=== PATIENT | male | born 1945 | race Caucasian/White ===

== ENCOUNTER 2019-10-30 07:51 | Outpatient (CLI) | payer MEDICARE, MEDICAID, SELFPAY ==
--- NOTE | 2019-10-30 | US_ITS ---
WS: [id number] Complete ABDOMINAL ULTRASOUND HISTORY: UNSPECIFIED ABD PAIN, nausea. COMPARISON: None available. Liver: 22.0 cm in length. Enlarged liver with coarsened echotexture and hepatic steatosis. No mass or bile duct dilatation. Gallbladder: Normally distended with no gallstones, wall thickening or pericholecystic fluid. Gallbladder wall thickness: 0.2 cm. Pancreas: Obscured by bowel gas. CBD: 0.4 cm. Right kidney: 11.4 cm x 4.8 cm x 5.9 cm. No mass, cortical thickening or hydronephrosis. Left kidney: 12.7 cm x 5.0 cm x 4.8 cm. No mass, cortical thickening or hydronephrosis. Spleen: Normal size and echogenicity. Abdominal aorta is obscured by bowel gas. IVC is not well visualized. No ascites. US/US abdomen complete* [id number] IMPRESSION: 1. Moderate to severe hepatic steatosis and hepatomegaly. 2. Normal gallbladder. 3. Pancreas and aorta are not visualized.
== END 2019-10-30 07:52 | disposition home or self-care (01) ==
PROVIDERS: Family Provider Nurse Practitioner Family; PCP Nurse Practitioner Family; Visit Provider Nurse Practitioner Family
DX: R10.9 Unspecified abdominal pain (principal); K76.0 Fatty (change of) liver, not elsewhere classified; R16.0 Hepatomegaly, not elsewhere classified
CPT/HCPCS: 76700

== ENCOUNTER 2019-12-15 07:34 | Outpatient (CLI) | payer MEDICARE, MEDICAID, SELFPAY ==
--- NOTE | 2019-12-15 07:46 | IR_ITS ---
WS: [id number] THORACIC AND LUMBAR MYELOGRAMs HISTORY: SPINAL STENOSIS, LUMBAR REGION W/NEUROGENIC CLAUDICATION COMPARISON: None available. FLUOROSCOPY TIME: 1.2 minutes. Procedure, risks and complications were explained to the patient. Risks including bleeding, infection , headaches, allergic reaction and seizures. Consent has been obtained. With the patient in prone position the skin over the lumbar region is cleansed with ChloraPrep and an esthetized with lidocaine. 22-gauge spinal needle is inserted into the thecal sac at the appropriate level determined by fluoroscopy. Omnipaque 300; 12 ml is injected slowly under fluoroscopy with no co mplications. Needle bevel is perpendicular to the longitudinal fibers of the dura. Stylet is reinsert ed prior to removal of the needle. Patient tolerated the procedure well. Patient will proceed to CT f or further evaluation. Quality of this examination is limited by body habitus. Injection of the thecal contrast at the L3 level. Thecal sac is poorly visualized due to body habitus . There is significant degenerative disc disease and osteophytosis throughout the thoracic and lumbar spines. No acute fractures are identified. Extensive multilevel osteophytosis. IR/IR myelogram spine thorac/lumb IMPRESSION: 1. Quality of examination is limited by body habitus. 2. Severe multilevel spondylitic changes throughout the thoracic and lumbar sp wallace. No fractures. 3. There is mild encroachment upon the ventral thecal sac at the thoracolumbar region which will be better identified on the CTs to follow.
--- NOTE | 2019-12-15 07:46 | CT_ITS ---
WS: [id number] CT THORACIC MYELOGRAM HISTORY: SPINAL STENOSIS, LUMBAR REGION W/NEUROGENIC CLAUDICATION TECHNIQUE: Contiguous 2.5 mm axial images are reviewed to thoracic spine. Images are reformatted in s agittal and coronal planes. All CT scans at [facility] use at least one of these dose opt imization techniques: automated exposure control; mA and/or kV adjustment per patient size (includes targeted exams where dose is matched to clinical indication); or iterative reconstruction. DLP: 3797.25 mGy.cm COMPARISON: None available. Mild S-shaped curvature the thoracic spine. There is slight increase in the thoracic kyphosis with ad vanced degenerative changes throughout the thoracic spine. There is very slight anterior wedging of T 6, T7 and T8. No fracture identified. There are large osteophytes predominantly along the RIGHT later al vertebral bodies. Good distention of the thecal sac with contrast. T1-2: No stenosis. T2-3: Shallow central disc protrusion without stenosis. T3-4: Shallow RIGHT paracentral disc protrusion without stenosis. T4-5: Shallow LEFT paracentral disc protrusion without stenosis. T5-6: Small central disc protrusion with near complete effacement of CSF. No stenosis. T6-7: Normal. T7-8: Vertebral body osteophyte with encroachment upon the RIGHT lateral thecal sac and near complet e effacement of CSF. Mild LEFT foraminal stenosis. T8-9: Mild RIGHT foraminal stenosis due to osteophyte. T9-10: Mild facet arthritis. Very mild narrowing of the foramen. T10-11: Facet joint arthritis. Osteophytes encroach into the RIGHT lateral thecal sac from the facet joint. Moderate RIGHT foraminal stenosis due to disc and osteophyte. T11-12: Osteophytic ridging of the vertebral bodies. Most significant at the RIGHT foramen. Moderate bilateral foraminal stenosis, RIGHT greater than LEFT. CT/CT thoracic spine w con [id number] IMPRESSION: 1. Multilevel small disc protrusions and facet arthritis as above. 2. RIGHT facet osteophyte at T10-11 encroaches into the thecal sac without con tact on the cord. 3. Moderate stenosis RIGHT T10-11 foramen due to disc osteophyte. 4. No severe foraminal or central stenosis. 5. Moderate bilateral foraminal stenosis at T11-12, RIGHT greater than LEFT.
--- NOTE | 2019-12-15 07:46 | CT_ITS ---
WS: [id number] CT MYELOGRAM LUMBAR SPINE HISTORY: SPINAL STENOSIS, LUMBAR REGION W/NEUROGENIC CLAUDICATION TECHNIQUE: Contiguous 2.5 mm axial imaging performed from T12 through the mid sacral level. Bone and soft tissue windows reviewed. Sagittal and coronal reformats are submitted and reviewed. DLP: 2319.[address] scans at [facility] use at least one of these dose optimization techniques: automat ed exposure control; mA and/or kV adjustment per patient size (includes targeted exams where dose is matched to clinical indication); or iterative reconstruction. COMPARISON: None available. Good injection of the thecal sac with contrast. There is limited contrast within the thecal sac due t o the significant stenosis throughout the lumbar spine. There is also increased epidural fat. Severe degenerative disc disease at all levels. Increasing sclerosis along the endplates most significant at L1-2 and L4-5. No fractures. T12-L1: Diffuse annular disc bulging and osteophytic ridging with facet arthritis. Mild central and b ilateral foraminal stenosis. L1-L2: Diffuse osteophytic ridging and annular disc bulging. Increased epidural fat surrounds the the cary sac. There is moderate central and bilateral foraminal stenosis. Greater foraminal stenosis on th e LEFT. L2-L3: Diffuse marked annular disc bulging and osteophytic ridging. Ligamentum flavum hypertrophy and facet arthritis. Moderate central stenosis with mild bilateral foraminal stenosis. L3-L4: Diffuse annular disc bulging and osteophytic ridging. Moderate central stenosis with mild bila teral foraminal stenosis. L4-L5: Marked osteophytic ridging and annular disc bulging with severe facet joint arthritis. Mild wi dening of the facet joints. Increased epidural fat. Severe central stenosis with subarticular recess and severe bilateral foraminal stenosis. L5-S1: Severe annular disc bulging and osteophytic ridging. Increased soft tissue in the RIGHT forame n. Marked increase in epidural fat causing narrowing of the thecal sac. Severe central, RIGHT subarti cular recess and foraminal stenosis. Highly suspicious for RIGHT foraminal disc protrusion. Moderate foraminal stenosis on the LEFT. Mild widening of the facet joints bilaterally. Paravertebral soft tissues are negative for acute process. CT/CT lumbar spine w con [id number] IMPRESSION: 1. Uncomplicated lumbar myelogram. 2. Severe multilevel degenerative osteoarthritic changes with stenoses through out the lumbar spine. 3. Diffuse increase in epidural fat contributing to the central stenoses. 4. Severe central stenosis with subarticular and bilateral foraminal stenosis at L4-5 is multifactorial. 5. Severe central, RIGHT subarticular and RIGHT foraminal stenosis at L5-S1. H ighly suspect there is probably a large disc protrusion in the RIGHT foramen. Q uality of this examination is limited by body habitus. 6. Moderate foraminal stenosis on the LEFT at L5-S1. 7. Moderate central and bilateral mild to moderate foraminal stenosis at L1-2, L2-3 and L3-4.
[2019-12-15] MEDS: iohexol 300 mg/mL 50 mL Btl INTRATHECA (09:48)
== END 2019-12-15 07:35 | disposition home or self-care (01) ==
LOC: RAD 07:38
PROVIDERS: Family Provider Nurse Practitioner Family; PCP Nurse Practitioner Family; Visit Provider Anesthesiology Pain Medicine
DX: M48.062 Spinal stenosis, lumbar region with neurogenic claudication (principal); M47.895 Other spondylosis, thoracolumbar region; M51.36 Other intervertebral disc degeneration, lumbar region; M48.061 Spinal stenosis, lumbar region without neurogenic claudication; M51.34 Other intervertebral disc degeneration, thoracic region; M48.04 Spinal stenosis, thoracic region; M25.78 Osteophyte, vertebrae
CPT/HCPCS: 62305; 72120; 72129; 72132

== ENCOUNTER → 2020-04-15 16:13 | Outpatient (BNVA) | payer MEDICARE, MEDICAID, SELFPAY | PROVIDERS: Family Provider Nurse Practitioner Family; PCP Nurse Practitioner Family; Visit Provider Internal Medicine Cardiovascular Disease | DX: R06.02 Shortness of breath (principal); I50.33 Acute on chronic diastolic (congestive) heart failure; R07.89 Other chest pain; I11.0 Hypertensive heart disease with heart failure; F32.9 Major depressive disorder, single episode, unspecified; G47.33 Obstructive sleep apnea (adult) (pediatric); E11.65 Type 2 diabetes mellitus with hyperglycemia | CPT/HCPCS: 80048; 83880 ==

== ENCOUNTER 2020-05-08 12:30 | Outpatient (CLI) | payer MEDICARE, MEDICAID, SELFPAY ==
--- NOTE | 2020-05-08 12:22 | PC.NURSE ---
STRESS TEST NOTE PATIENT HER FOR LEXISCAN SESTAMIBI STRESS TEST AND AN ECHOCARDIOGRAM. UPON QUESTIONING HIM ABOUT HIS CAFFIENE AND FOOD INTAKE HE STATED THAT HE HAD 2 CUPS OF COFFEE WITH BREAKFAST AROUND 0700. HE STATES THAT HE WAS GIVEN A MAP OF THE [facility]OSP[facility] IN [facility] WITH NO STRESS TEST INSTRUCTIONS. THE ECHOCARDIOGRAM WAS COMPLETED TODAY. THE LEXISCAN SESTAMIBI STRESS TEST WAS RESCHEDULED TO May, WITH A CHECK IN TIME OF 0900. 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 THEY ALL VERBALIZED THEIR UNDERSTANDING.
--- NOTE | 2020-05-08 13:30 | USCV_ITS ---
Enzo Trujillo Age: 74 Gender: M : 1945 Exam Date: 05/08/2020 11:20 Ordering Phys: Lina Hong MD ([email or web address]) Technologist: Luann Potter Exam Location: [facility] Indication: SOB CHF BP: 112 / 60 HR: 80 Rhythm: Sinus Technical Quality: Very technically difficult study MEASUREMENTS (Male / Female) Normal Values 2D ECHO LV Diastolic Diameter PLAX 5.5 cm 4.2 - 5.9 / 3.9 - 5.3 cm LV Systolic Diameter PLAX 3.3 cm LV Chamber Size 3.4 cm IVS Diastolic Thickness 1.5 cm 0.6 - 1.0 / 0.6 - 0.9 cm IVS Systolic Thickness 1.8 cm LVPW Diastolic Thickness 1.7 cm 0.6 - 1.0 / 0.6 - 0.9 cm LVPW Systolic Thickness 2.1 cm RV Chamber Size 3.2 cm LVOT Diameter 2.0 cm LV Ejection Fraction 2D Teich 70.6 % LA Diameter 2.9 cm LA Width 3.5 cm LA Height 3.7 cm RA Width 2.9 cm RA Height 3.8 cm Aorta at Sinotubular Diameter 3.9 cm M-MODE LV Diastolic Diameter MM 5.1 cm 4.2 - 5.9 / 3.9 - 5.3 cm LV Systolic Diameter MM 3.0 cm LV Ejection Fraction MM Teich 72.4 % IVS Diastolic Thickness MM 1.4 cm 0.6 - 1.0 / 0.6 - 0.9 cm IVS Systolic Thickness MM 2.1 cm LVPW Diastolic Thickness MM 1.6 cm 0.6 - 1.0 / 0.6 - 0.9 cm LVPW Systolic Thickness MM 1.7 cm RV Diastolic Diameter MM 1.6 cm Aortic Annulus Diameter 4.2 cm LA Ao Ratio MM 0.7 MV E Point Septal Separation 0.9 cm DOPPLER AV Peak Velocity 136.0 cm/s LVOT Peak Velocity 105.0 cm/s AV Area Cont Eq vti 2.8 cm squared AV Area Cont Eq pk 2.5 cm squared MV Area PHT 5.6 cm squared Mitral E to A Ratio 0.8 MV E' Velocity 41.5 cm/s Mitral E to MV E' Ratio 9.3 Mitral E to LV E' Lateral Ratio 12.7 Mitral E to LV E' Septal Ratio 7.4 TR Peak Velocity 138.4 cm/s TR Peak Gradient 7.7 mmHg TR Mean Velocity 118.6 cm/s TR Mean Gradient 5.5 mmHg TR Velocity Time Integral 27.7 cm TV Peak E Velocity 78.0 cm/s Right Atrial Pressure 5.0 mmHg Pulmonary Artery Systolic Pressu 12.7 mmHg PV Peak Velocity 76.0 cm/s RV Acceleration Time 0.2 s RV Ejection Time 0.4 s RV AcT/ET 0.5 FINDINGS Left Ventricle Normal LV size ejection fraction of 65%. No gross wall motion normalities. Segmental wall motion analysis difficult because of the poor ultrasonic window.Grade I/IV diastolic dysfunction (abnormal relaxation filling pattern), normal to mildly elevated filling pressures. Right Ventricle Normal right ventricular size and systolic function. Right Atrium Possibly of normal size. Left Atrium Normal left atrial size. Mitral Valve Some mitral annular calcification. Aortic Valve No gross abnormalities noted. Could not visualize the leaflets Tricuspid Valve Tricuspid valve not well visualized. Thickened tricuspid annulus Pulmonic Valve Pulmonic valve not well visualized. Pericardium No pericardial effusion. Aorta Normal aortic annulus size. CONCLUSIONS Normal LV size ejection fraction of 65%. No gross wall motion normalities. Segmental wall motion analysis difficult because of the poor ultrasonic window. Grade I/IV diastolic dysfunction (abnormal relaxation filling pattern), normal to mildly elevated filling pressures. Some mitral annular calcification. Thickened tricuspid annulus There is no pericardial effusion. Technically difficult study because of the poor ultrasonic window. Dr Lina Hong MD [facility] (Electronically Signed) Final Date: 08 May 2020 14:44 S
== END 2020-05-08 12:31 | disposition home or self-care (01) ==
LOC: US 15:16
PROVIDERS: PCP Nurse Practitioner Family; Visit Provider Internal Medicine Cardiovascular Disease
DX: R07.9 Chest pain, unspecified (principal); R06.02 Shortness of breath; E11.65 Type 2 diabetes mellitus with hyperglycemia; I50.9 Heart failure, unspecified; I08.1 Rheumatic disorders of both mitral and tricuspid valves
CPT/HCPCS: 93306

== ENCOUNTER 2020-05-26 20:13 | Inpatient (IN) | payer MEDICARE, MEDICAID, SELFPAY ==
[2020-05-26 20:18] VITALS: BP 152/71; PULSE 94; RESP 28; TEMP 36.8; O2SAT 94; BMI 55.3
--- NOTE | 2020-05-26 20:32 | CTR_ITS ---
PROCEDURE INFORMATION: Exam: CT Lumbar Spine Without Contrast Exam date and time: 05/26/2020 8:35 PM Age: 74 years old Clinical indication: Low back pain; Patient HX: C/O worsening chronic lbp w weakness; Additional info: Weakness, back pain TECHNIQUE: Imaging protocol: Computed tomography images of the lumbar spine without contrast. Radiation optimization: All CT scans at this facility use at least one of these dose optimization techniques: automated exposure control; mA and/or kV adjustment per patient size (includes targeted exams where dose is matched to clinical indication); or iterative reconstruction. COMPARISON: CT lumbar spine w con [id number] 12/15/2019 9:22 AM RADIATION DOSE METRICS: Total DLP (mGy-cm): 2463.86 FINDINGS: Vertebrae: There is slight left convexity of the lumbar spine. No anterior wedging deformity is seen. No acute lucent fracture lines are visualized. No destructive osseous lesions are seen. There is diffuse lumbar spondylosis. Facet arthropathy is most prominent at the L4-L5 and L5-S1 levels. Discs/Spinal canal/Neural foramina: There is moderate to severe central stenosis at L1-L2 due to a diffuse spondylitic ridge and facet hypertrophy. Central canal stenosis is moderate at L2-L3, mild at L3-L4 and L4-L5. There is neural foraminal stenosis at each lumbar level. CT/CT lumbar spine wo con* [id number] IMPRESSION: 1. No acute lumbar spinal injury demonstrated by CT. 2. Degenerative changes of the lumbar spine, as above. Radiation Dose CTDIVOL = (mGy): DLP = 2463.86 (mGy-cm)
--- NOTE | 2020-05-26 20:32 | XRR_ITS ---
PROCEDURE INFORMATION: Exam: XR Chest, 1 View Exam date and time: 05/26/2020 9:00 PM Age: 74 years old Clinical indication: Other: General weakness TECHNIQUE: Imaging protocol: XR of the chest Views: 1 view. COMPARISON: CR IR myelogram spine thorac/lumb 12/15/2019 8:36 AM FINDINGS: Lungs: There are bibasilar opacities, greater on the left, with a portion of the left hemidiaphragm obscured. Pleural space: No pleural effusion is seen. No pneumothorax. Heart/Mediastinum: Borderline cardiomegaly. Bones/joints: Unremarkable. XR/XR chest 1V portable [id number] IMPRESSION: Bibasilar atelectasis versus pneumonitis, greater on the left.
--- NOTE | 2020-05-26 20:46 | ED_ITS ---
HPI - Weakness General: Chief complaint: Weakness Stated complaint: FALL Time Seen by Provider: 05/26/20 20:16 History of Present Illness: HPI Narrative: 74-year-old gentleman who lives at home with his sister. He notes that the last 2 days has been progressively weaker in his lower extremities. He is had more back pain than usual. He denies any numbness, especially any numbness to the genital region. He says that his legs have gone out from under him a couple of times, the last time was today. He was having trouble getting up out of the floor, so first responders were called, and he comes to the emergency department. No new trauma with his falls, he simply is generally weak. He denies any fever. He states he has had some diarrhea. No shortness of breath. Complaint: generalized weakness Onset (ago): day(s) Duration: constant Location: generalized Migration: none Severity: moderate Relieving factors: none Exacerbating factors: movement Associated symptoms: Denies chest pain, chills, confusion, melena, diaphoresis, dysuria, fever(s), headache(s), nausea or vomiting Review of Systems Const: Denies: fever(s), chills or diaphoresis Card: Denies: chest pain GI: Denies: nausea, vomiting or melena : Denies: dysuria Neuro: Denies: headache(s) or confusion PFS ED PFSH: Medical History (Updated 05/27/20 @ 01:10 by Shelbie Cates MD) Anemia Bursitis, shoulder Depression Diabetes mellitus Displacement of lumbar disc with radiculopathy Gastroesophageal reflux disease Hypertension Intervertebral disc disorder with radiculopathy of lumbosacral region Lumbar stenosis with neurogenic claudication Moderate obstructive sleep apnea Morbid obesity with BMI of 45.0-49.9, adult Obesity Osteoarthritis of spine with radiculopathy, lumbar region Other specified anxiety disorders Shortness of breath on exertion The EKG from 11/29/2017 revealed sinus rhythm with a first-degree AV block. According the patient, he had another EKG recently and the results are not available. Spinal stenosis, lumbar region with neurogenic claudication Surgical History History of cervical spinal surgery (~2013) 2017 Dr. Mark Caldera [facility] History of knee replacement 2009 [place] left total knee replacement 2008 [place] right total knee replacement History of repair of rotator cuff 10/24/2013 Dr. Len Angel: Acromioplasty, distal clavicle resection, and rotator cuff repair with suture anchors, absorbable. Family History Sister Depression Diabetes Father Depression Cancer Grandmother Depression Brother Diabetes Mother Stroke Social History (Updated 05/27/20 @ 01:07 by Shelbie Cates MD) Smoking and tobacco status: former smoker Alcohol intake: current Alcohol type: beer Alcohol use comment: 2-3 beers a day Substance/Drug Use: never Household members: family and other Details: sister Marital status: / Current occupational status: retired and disabled History of recent travel: No Physical Exam Const: COMMON NORMALS: no acute distress and patient oriented x3 NUTRITIONAL APPEARANCE: obese morbidly obese Chest: COMMONS NORMALS: normal inspection of the chest and normal palpation of entire chest wall Resp: COMMON NORMALS: normal respiratory effort, No retractions and clear to auscultation bilaterally AUSCULTATION: clear to auscultation bilaterally Cardio: COMMON NORMALS: regular rate, regular rhythm, No gallops present (Car cony), No clicks present (Cardio) and No murmurs present (Cardio) RATE: regular rate RHYTHM: regular rhythm GI: COMMON NORMALS: Soft to palpation AUSCULTATION: Yes normoactive bowel sounds PALPATION: Yes Soft to palpation and No Tenderness to palpation present (GI) Extremity: NARRATIVE EXTREMITY EXAM: Bilateral lower extremity edema with changes of vascular insufficiency noted. Neuro: COMMON NORMALS: patient oriented x3 Course Vital Signs: Vital signs: Vital Signs Temperature 98.3 F 05/26/20 20:18 Pulse Rate 93 05/27/20 00:54 Respiratory Rate 18 05/27/20 00:54 Blood Pressure 106/52 05/27/20 00:54 Pulse Oximetry 97 05/27/20 00:54 MDM - Weakness MDM Narrative: Medical decision making narrative: 74-year-old male, morbidly obese. He notes that he has been having increased generalized weakness. He short of breath on exertion. His vitals have been good. His hemoglobin is 8.2. White blood cell count 5.1. Bicarbonate level 17. Sodium level 129. After a liter of fluid, he began to feel better. We got him up to walk him, and he became very short of breath even around the bed. He is a significant fall risk. CT of his lumbar spine showed no severe stenosis. He will come in for observation. Recheck hemoglobin in the morning. He may need blood. Lab Data: Labs: Lab Results 05/26/20 05/26/20 Range/Units 20:40 20:40 WBC 5.1 (4.0-10.0) 10^3/ uL RBC 2.57 L (4.1-5.3) 10^6/u L Hgb 8.2 L (11.7-16.6) g/dL Hct 26.0 L (42.0-52.0) % MCV 101.2 H (80-94) fL MCH 31.9 (28.0-34.0) pg MCHC 31.5 (30.0-36.0) g/dL RDW 13.7 (12.1-15.1) % Plt Count 158 (130-400) 10^3/c mm MPV 10.2 (7.4-10.4) fL Neut % (Auto) 60.1 % Lymph % (Auto) 26.8 % Kern % (Auto) 9.6 % Eos % (Auto) 2.3 % Baso % (Auto) 0.8 % Neut # (Auto) 3.08 (1.8-7.7) 10^3/u L Lymph # (Auto) 1.4 (0.8-4.8) 10^3/u L Kern # (Auto) 0.5 (0.2-0.9) 10^3/u L Eos # (Auto) 0.1 (0.0-0.8) 10^3/u L Baso # (Auto) 0.0 (0.0-0.1) 10^3/u L Nucleated RBC % (a uto) 0 % Nucleated RBCs # 0.0 /100WBC Sodium 129 L (136-145) mmol/L Potassium 4.4 (3.5-5.1) mmol/L Chloride 103 (98-107) mmol/L Carbon Dioxide 17 L (22-29) mmol/L Anion Gap 13.4 (5-19) BUN 29 H (8-23) mg/dL Creatinine 1.2 (0.7-1.2) mg/dL GFR Calculation Not Reportable Glucose 92 (65-115) mg/dL Calculated Osmolal ity 273 L (285-295) mOsm/k g Calcium 6.1 L (8.5-10.5) mg/dL Phosphorus 3.2 (2.5-4.5) mg/dL Magnesium 1.5 L (1.7-2.3) mg/dL Total Bilirubin 0.4 (0.15-1.2) mg/dL AST 29 (0-40) U/L ALT 17 (0-41) U/L Alkaline Phosphata se 42 (40-130) IU/L C-Reactive Protein 2.0 (0.0-4.9) mg/L NT-Pro-B Natriuret Pep 122 (0-125) pg/mL Total Protein 4.8 L (6.6-8.7) g/dL Albumin 3.1 L (3.5-5.2) g/dL Globulin 1.7 (1.3-4.6) g/dL Discharge Plan Discharge Patient Disposition: Placed in Observation Admit Provider: Shelbie Cates Clinical Impression: Anemia, Generalized weakness, Acute dehydration Coding Level of Care Code ED Computer System Validation Specialist for g Fwd Exam Detailed
[2020-05-26 21:01] LABS: Basophils % 0.8 %; Eosinophils # 0.1 10^3/uL (0.0-0.8); Eosinophils % 2.3 %; Hemoglobin 8.2 g/dL (11.7-16.6); Lymphocytes # 1.4 10^3/uL (0.8-4.8); Lymphocytes % 26.8 %; Mean Corpuscular HGB Conc 31.5 g/dL (30.0-36.0); Mean Corpuscular Hemoglobin 31.9 pg (28.0-34.0); Mean Corpuscular Volume 101.2 fL (80-94); Mean Platelet Volume 10.2 fL (7.4-10.4); Monocytes # 0.5 10^3/uL (0.2-0.9); Monocytes % 9.6 %; Neutrophils # 3.08 10^3/uL (1.8-7.7); Neutrophils % 60.1 %; Nucleated Red Blood Cells % 0 %; Platelet Count 158 10^3/cmm (130-400); Red Blood Count 2.57 10^6/uL (4.1-5.3); Red Cell Distribution Width 13.7 % (12.1-15.1); White Blood Count 5.1 10^3/uL (4.0-10.0)
[2020-05-26] MEDS: sodium chloride 0.9% 1,000 ML 999 ML IV (21:24)
[2020-05-26 21:26] LABS: Alanine Aminotransferase 17 U/L (0-41); Albumin Level 3.1 g/dL (3.5-5.2); Alkaline Phosphatase 42 IU/L (40-130); Anion Gap 13.4 (5-19); Aspartate Amino Transferase 29 U/L (0-40); Blood Urea Nitrogen 29 mg/dL (8-23); Calcium 6.1 mg/dL (8.5-10.5); Carbon Dioxide 17 mmol/L (22-29); Chloride 103 mmol/L (98-107); Globulin 1.7 g/dL (1.3-4.6); Glucose 92 mg/dL (65-115); Magnesium 1.5 mg/dL (1.7-2.3); NT Pro B Type Natriuretic Pept 122 pg/mL (0-125); Osmolality Calculated 273 mOsm/kg (285-295); Phosphorus 3.2 mg/dL (2.5-4.5); Potassium 4.4 mmol/L (3.5-5.1); Sodium 129 mmol/L (136-145); Total Bilirubin 0.4 mg/dL (0.15-1.2); Total Protein 4.8 g/dL (6.6-8.7)
[2020-05-26 21:28] VITALS: BP 113/62; PULSE 92; RESP 16; O2SAT 94
[2020-05-26] MEDS: ondansetron 2 mg/ML SDV 2 mL 4 MG IVP (21:33)
[2020-05-26 21:35] VITALS: RESP 16; O2SAT 100
[2020-05-26] MEDS: morphine 4 mg/mL SDV 1 mL IVP (21:35)
[2020-05-26 21:38] VITALS: BP 106/52; PULSE 92; RESP 18; O2SAT 94
--- NOTE | 2020-05-26 23:56 | PM.HP ---
Providers/Chief Complaint Primary Care Provider: Corrina Thakkar OIL CHANGER-C Chief Complaint: FALL History of Present Illness Enzo Trujillo is a 74 year old male history of DM 2, chronic back pain, hypertension, alcohol abuse, CHANTAL on CPAP nightly, multiple degenerative joint disease came in today for lower extremity weakness. Patient is stating that for last 3 days he has been experiencing multiple falls, he is drinking 2-3 beers a day, his last alcoholic drink was today, he had 2 beers, he is not taking vitamin B12 or folic acid, he has follow-up with Dr. Juarez for severe central stenosis L5-S1 with moderate multilevel lumbar degenerative changes, he was advised lumbar decompression and spinal cord stimulator placement along bariatric surgery evaluation. Patient is denying chest pain, he is using CPAP at night, his hydrochlorothiazide was discontinued, currently he is on Lasix along potassium supplementation. He is denying fever, nausea, vomiting, dysuria, abdominal pain, hematuria, dark-colored stool, hematemesis. He has gained 850 pounds in last 4 to 5 years, he is getting progressively short of breath, eating a sedentary lifestyle, he is using a cane for ambulation. Diagnostics in the ER revealed hyponatremia, hypomagnesemia, anemia, hypocalcemia, albumin 3.1, no neurological signs, patient was not able to ambulate independently in the ER Review of Systems Const: Reports: chills, fatigue and malaise Eyes: Denies: change in vision ENMT: Reports: throat pain Card: Reports: swelling of feet/ankles and dyspnea on exertion; Denies: chest pain Resp: Reports: dyspnea GI: Denies: abdominal pain : Denies: flank pain Musc: Reports: muscle cramps Skin/Breast: Reports: lesions Neuro: Denies: headache(s) Psych: Denies: anxiety Endo: Denies: polyuria Felice/Lymph: Denies: easy bruising All/Imm: Denies: urticaria Medications/Allergies Home Medications Medication Instructions Recorded Confirmed Last Taken Type atorvastatin 20 mg tablet 20 mg PO DAILY 12/25/19 01/10/20 Unknown History diphenhydramine 25 1 tab PO ONCE PRN tab 12/25/19 01/10/20 Unknown History mg-acetaminophen 500 mg tablet escitalopram oxalate 10 mg tablet 10 mg PO DAILY 12/25/19 01/10/20 Unknown History glipizide 5 mg tablet 5 mg PO DAILY 12/25/19 01/10/20 Unknown History hydrochlorothiazide 25 mg tablet 25 mg PO DAILY 12/25/19 01/10/20 Unknown History hydrocodone 10 mg-acetaminophen 2 tab PO Q6H PRN tab 12/25/19 01/10/20 Unknown History 325 mg tablet lisinopril 10 mg tablet 10 mg PO DAILY 12/25/19 01/10/20 Unknown History metformin 1,000 mg tablet 1,000 mg PO BID 12/25/19 01/10/20 Unknown History mirtazapine 30 mg tablet 30 mg PO DAILY 12/25/19 01/10/20 Unknown History pantoprazole 40 mg tablet,delayed 40 mg PO DAILY 12/25/19 01/10/20 Unknown History release potassium chloride 10 mEq 10 meq PO BID 12/25/19 01/10/20 Unknown History tablet,extended release tamsulosin 0.4 mg capsule 0.4 mg PO DAILY 12/25/19 01/10/20 Unknown History furosemide 20 mg tablet 40 mg PO DAILY PRN tab 01/10/20 01/10/20 Unknown History Allergies Allergy/AdvReac Type Severity Reaction Status Date / Time bupropion [From Wellbutrin] AdvReac mental Verified 04/15/20 15:22 alteration PFSH Acute PFSH: Medical History (Updated 05/27/20 @ 01:10 by Shelbie Cates MD) Anemia Bursitis, shoulder Depression Diabetes mellitus Displacement of lumbar disc with radiculopathy Gastroesophageal reflux disease Hypertension Intervertebral disc disorder with radiculopathy of lumbosacral region Lumbar stenosis with neurogenic claudication Moderate obstructive sleep apnea Morbid obesity with BMI of 45.0-49.9, adult Obesity Osteoarthritis of spine with radiculopathy, lumbar region Other specified anxiety disorders Shortness of breath on exertion The EKG from 11/29/2017 revealed sinus rhythm with a first-degree AV block. According the patient, he had another EKG recently and the results are not available. Spinal stenosis, lumbar region with neurogenic claudication Surgical History History of cervical spinal surgery (~2013) 2017 Dr. Mark Caldera [facility] History of knee replacement 2009 [place] left total knee replacement 2008 [place] right total knee replacement History of repair of rotator cuff 10/24/2013 Dr. Len Angel: Acromioplasty, distal clavicle resection, and rotator cuff repair with suture anchors, absorbable. Family History Sister Depression Diabetes Father Depression Cancer Grandmother Depression Brother Diabetes Mother Stroke Social History (Updated 05/27/20 @ 01:07 by Shelbie Cates MD) Smoking and tobacco status: former smoker Alcohol intake: current Alcohol type: beer Alcohol use comment: 2-3 beers a day Substance/Drug Use: never Household members: family and other Details: sister Marital status: / Current occupational status: retired and disabled History of recent travel: No Vitals/I&O/Wt Last Vital Signs Temp 98.3 F 05/26/20 20:18 Pulse 92 05/26/20 21:38 Resp 18 05/26/20 21:38 BP 106/52 05/26/20 21:38 Pulse Ox 94 05/26/20 21:38 Weight last 48 hrs Weight 170.097 kg Physical Exam Narrative: EXAM NARRATIVE: Morbidly obese male sitting comfortably in his bed Normal hemodynamics No acute respiratory distress No active chest pain EOMI, PERRLA Awake alert oriented x3 GCS 15 No neurological deficit Gait ataxia, No focal neurological signs S1, S2, no signs of arrhythmia Saturating well on 2 L nasal cannula Abdomen soft, distended, obese obesity, nontender, no signs of peritonitis Lower extremity venous stasis dermatitis, trace edema No signs of ischemia gangrene ulcer of lower extremities Dry skin of feet, onychomycosis Data : 05/26/20 20:40 05/26/20 20:40 A&P Assessment and plan (1) Generalized weakness: Status: Acute (2) Hyponatremia: Status: Acute (3) Hypocalcemia: Status: Acute (4) Hypomagnesemia: Status: Acute (5) Alcohol abuse: Status: Acute Additional A&P Information Generalized weakness This most likely secondary to leading a sedentary lifestyle, alcohol abuse, morbid obesity, sleep apnea Hyponatremia, anemia with underlying lumbar radiculopathy I will start him on thiamine and folic acid and cyanocobalamin No active signs of stroke Acute on chronic hyponatremia It is hard to assess his volume status however he has history of alcohol abuse, previously his sodium level has stayed low as low as 116(required hypertonic saline) No acute neurological signs at this visit Avoid normal saline secondary to history of alcohol abuse, with fluid restriction if sodium is correcting 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, check urine and serum sodium level, TSH I will hold SSRI for now Otoole is denying recent diarrhea or vomiting His hydrochlorothiazide has been discontinued at home he is taking Lasix Hypomagnesemia and hypocalcemia Replenish Check PTH level No arrhythmia noted Chronic macrocytic anemia We do not have recent hemoglobin level, however in 2018, hemoglobin was 13 Patient is not endorsing any black tarry stool, hematemesis, hematochezia, I do suspect alcohol induced anemia to be one of the factors, Initiate B12 folic acid level DVT prophylaxis: Lovenox 30 twice daily considering high BMI, hemoglobin level is dropping currently stop anticoagulant agents Regular diet to allow liberal salt intake Full code Attestations Medical Necessity Statement*: Anticipated discharge in less than 48 hours continued overnight monitoring for generalized weakness, hyponatremia, patient was not able to bear weight on his legs when he was ambulating in the ER Time Spent in Patient Care: (>than 50% of time spent in counselling and/or direct pt care on unit). 50mins Coding Level of Care Code Acute Architectural Representative for Siobhan Solorio Diagnoses Generalized weakness R53.1 Hyponatremia E87.1 Hypocalcemia E83.51 Hypomagnesemia E83.42 Alcohol abuse F10.10
[2020-05-27] VITALS (135 sets, daily range): BP systolic 106–164; BP diastolic 46–99; PULSE 0–183; RESP 11–28; TEMP 35.8–37.1; O2SAT 88–99
[2020-05-27 01:27] LABS: Ionized Calcium 1.2 mmol/L (1.1-1.4)
[2020-05-27 01:57] LABS: Alcohol Level < 10 mg/dL (0-10)
[2020-05-27] MEDS: enoxaparin 30 mg/0.3 mL Syringe SUBCUT (02:26)
[2020-05-27 02:30] LABS: Basophils % 0.6 %; Eosinophils # 0.1 10^3/uL (0.0-0.8); Eosinophils % 1.8 %; Hematocrit 32.7 % (42.0-52.0); Hemoglobin 10.8 g/dL (11.7-16.6); Lymphocytes # 1.5 10^3/uL (0.8-4.8); Lymphocytes % 21.9 %; Mean Corpuscular Hemoglobin 32.5 pg (28.0-34.0); Mean Corpuscular Volume 98.5 fL (80-94); Mean Platelet Volume 10.5 fL (7.4-10.4); Monocytes # 0.5 10^3/uL (0.2-0.9); Monocytes % 8.1 %; Neutrophils # 4.48 10^3/uL (1.8-7.7); Neutrophils % 67.3 %; Nucleated Red Blood Cells % 0 %; Platelet Count 215 10^3/cmm (130-400); Red Blood Count 3.32 10^6/uL (4.1-5.3); Red Cell Distribution Width 13.7 % (12.1-15.1); White Blood Count 6.7 10^3/uL (4.0-10.0)
[2020-05-27] MEDS: fluticasone nasal spray 16gm Btl 1 SPRAY NASAL ×3 (02:35→17:03)
[2020-05-27 02:45] LABS: Anion Gap 15.8 (5-19); Blood Urea Nitrogen 40 mg/dL (8-23); Calcium 9.3 mg/dL (8.5-10.5); Carbon Dioxide 23 mmol/L (22-29); Chloride 88 mmol/L (98-107); Glucose 148 mg/dL (65-115); Osmolality Calculated 263 mOsm/kg (285-295); Sodium 120 mmol/L (136-145)
[2020-05-27] MEDS: magnesium sulfate premix 2 GM/50 ML PIGGYBACK IV (02:47)
[2020-05-27] MEDS: HYDROmorphone 1 mg/mL INJ 1 mL 2 MG IVP ×3 (03:29→17:09)
[2020-05-27 03:34] LABS: Potassium 6.8 mmol/L (3.5-5.1)
[2020-05-27 04:04] LABS: Anion Gap 17.6 (5-19); Blood Urea Nitrogen 39 mg/dL (8-23); Calcium 9.4 mg/dL (8.5-10.5); Carbon Dioxide 20 mmol/L (22-29); Chloride 88 mmol/L (98-107); Glucose 151 mg/dL (65-115); Osmolality Calculated 260 mOsm/kg (285-295)
[2020-05-27 04:05] LABS: Potassium 6.6 mmol/L (3.5-5.1); Sodium 119 mmol/L (136-145)
[2020-05-27] MEDS: sodium chloride 1 gm Tablet PO (04:08)
--- NOTE | 2020-05-27 04:09 | PC.NURSE ---
Patient unable to urinate this evening after multiple attempts. Informed Dr Cates. Received order to bladder scan and in/out straight cath. Bladder scan revealed 292ml. Straight cath yielded 500ml out. Dr Cates in to see patient and has placed new orders.
[2020-05-27] MEDS: insulin regular-human 10 UNIT in SYRINGE 1 EACH 200 UNIT IVP (05:00)
[2020-05-27] MEDS: sodium polystyrene sulfonate 15 gm/60 mL Btl PO ×3 (05:00→20:20)
[2020-05-27] MEDS: dextrose 50% syringe 50 mL 25 ML IVP (05:00)
[2020-05-27 05:04] LABS: Thyroid Stimulating Hormone 4.03 uIU/mL (0.27-4.20)
[2020-05-27 05:09] LABS: Folate Level 14.2 ng/mL (4.5-32.2)
[2020-05-27 05:10] LABS: Vitamin B12 391 pg/mL (232-1245)
--- NOTE | 2020-05-27 06:11 | P.CONIM_ITS ---
Providers/Reason For Consult Consulting Physican/Specialty*: duc harrell md / telenephrology Reason for Consult*: KARINA, hyperkalemia, hyponatremia, hypocalcemia, hypomagnesemia. Attending Physician: Shelbie Cates MD Primary Care Provider: Corrina ThakkarP-C History of Present Illness History of Present Illness Enzo Trujillo is a 74 year old male ETOH use, htn, morbid obesity, CHANTAL on CPAP, type 2 DM, hyperlipidemia, tob use, DJD- back disease, BPH, hyperlipidemia. Pt drinks ETOH, sode, water, milk at home. Pt came in w/ falls and was given NS ivf- pt also had urinary retention- pts cr luan from 1.2 to 1.6 mg/dl and na was 135 at baseline, dropped to 129 on admission, and now 119. Og note- he recently saw cardiology and had a relatively normal echo. Diuretics changed from thiazide to lasix. Pt states he has severe edema and SOB. Review of Systems General: Reports: 10 or more systems reviewed and unremarkable except in HPI and below Narrative: weak, falls, sob, swollen, weight gain, difficulty urinating. severe back pain-on pain meds- denies NSAID use, anxiety Meds/Allergies Home Medications and Allergies Home Medications Medication Instructions Recorded Confirmed Last Taken Type atorvastatin 20 mg tablet 20 mg PO DAILY 12/25/19 01/10/20 Unknown History diphenhydramine 25 1 tab PO ONCE PRN tab 12/25/19 01/10/20 Unknown History mg-acetaminophen 500 mg tablet escitalopram oxalate 10 mg tablet 10 mg PO DAILY 12/25/19 01/10/20 Unknown History glipizide 5 mg tablet 5 mg PO DAILY 12/25/19 01/10/20 Unknown History hydrochlorothiazide 25 mg tablet 25 mg PO DAILY 12/25/19 01/10/20 Unknown History hydrocodone 10 mg-acetaminophen 2 tab PO Q6H PRN tab 12/25/19 01/10/20 Unknown History 325 mg tablet lisinopril 10 mg tablet 10 mg PO DAILY 12/25/19 01/10/20 Unknown History metformin 1,000 mg tablet 1,000 mg PO BID 12/25/19 01/10/20 Unknown History mirtazapine 30 mg tablet 30 mg PO DAILY 12/25/19 01/10/20 Unknown History pantoprazole 40 mg tablet,delayed 40 mg PO DAILY 12/25/19 01/10/20 Unknown History release potassium chloride 10 mEq 10 meq PO BID 12/25/19 01/10/20 Unknown History tablet,extended release tamsulosin 0.4 mg capsule 0.4 mg PO DAILY 12/25/19 01/10/20 Unknown History furosemide 20 mg tablet 40 mg PO DAILY PRN tab 01/10/20 01/10/20 Unknown History Allergies Allergy/AdvReac Type Severity Reaction Status Date / Time bupropion [From Wellbutrin] AdvReac mental Verified 04/15/20 15:22 alteration Current Medications Current Medications Generic Name Dose Route Start Last Admin Trade Name Freq PRN Reason Stop Dose Admin Enoxaparin Sodium 30 mg 05/27/20 01:40 05/27/20 02:26 Enoxaparin 30 Mg/0.3 Ml Syringe SUBCUT 30 mg Q12H LEXI Administration Fluticasone Propionate 1 spray 05/27/20 02:23 05/27/20 02:35 Fluticasone Nasal [place] 16gm Btl NASAL 1 spray BID LEXI Administration Hydromorphone HCl 2 mg 05/27/20 03:08 05/27/20 03:29 Hydromorphone 1 Mg/Ml Inj 1 Ml IVP 2 mg Q4H PRN Administration PAIN PFSH Acute PFSH: Medical History (Updated 05/27/20 @ 01:10 by Shelbie Cates MD) Anemia Bursitis, shoulder Depression Diabetes mellitus Displacement of lumbar disc with radiculopathy Gastroesophageal reflux disease Hypertension Intervertebral disc disorder with radiculopathy of lumbosacral region Lumbar stenosis with neurogenic claudication Moderate obstructive sleep apnea Morbid obesity with BMI of 45.0-49.9, adult Obesity Osteoarthritis of spine with radiculopathy, lumbar region Other specified anxiety disorders Shortness of breath on exertion The EKG from 11/29/2017 revealed sinus rhythm with a first-degree AV block. According the patient, he had another EKG recently and the results are not available. Spinal stenosis, lumbar region with neurogenic claudication Surgical History History of cervical spinal surgery (~2013) 2017 Dr. Mark Caldera [facility] History of knee replacement 2009 [place] left total knee replacement 2008 [place] right total knee replacement History of repair of rotator cuff 10/24/2013 Dr. Len Angel: Acromioplasty, distal clavicle resection, and rotator cuff repair with suture anchors, absorbable. Family History Sister Depression Diabetes Father Depression Cancer Grandmother Depression Brother Diabetes Mother Stroke Social History (Updated 05/27/20 @ 01:07 by Shelbie Cates MD) Smoking and tobacco status: former smoker Alcohol intake: current Alcohol type: beer Alcohol use comment: 2-3 beers a day Substance/Drug Use: never Household members: family and other Details: sister Marital status: / Current occupational status: retired and disabled History of recent travel: No Vitals/I&O/Wt Last Vital Signs Temp 98.4 F 05/27/20 04:00 Pulse 94 05/27/20 04:00 Resp 18 05/27/20 04:00 BP 107/47 05/27/20 04:00 Pulse Ox 95 05/27/20 04:00 05/26/20 05/26/20 05/27/20 14:59 22:59 06:59 Intake Total 1000 / 1000 Balance 1000 / 1000 Weight last 48 hrs Weight 176.629 kg Weight 170.097 kg Physical Exam Narrative: EXAM NARRATIVE: vs noted- BP low, on CPAP obese heent- nc/at, eomi, anicteric neck- supple lung ronchi b/l heart irreg irreg abd soft, nt, nd, +BS ext b/l 2+ edema in legs neuro- a,a, o x3 pulses + b/l A&P Additional A&P Information 74 yr old man 1. KARINA- Q of retention- straight cath had 500 ml uop -replace andrade -renal us -check u/a and urine electrolytes -hold SUKHWINDER-i 2. hyponatremia- await urine na, osm, cr -free water restrict -can normalize quickly as na went from 129 to 119 in 6 hrs -lasix and 3% saline and monitor -normal tsh -now on steroids -pt on diuretics and SSRI 3.hyperkalemia- from Sukhwinder-i and KARINA -rx medically and monitor 4. hypocalcemia- corrected quickly -check vit d levels 5. leg edema- echo looked normal. -check venous dopplers -Q Right heart failure from obesity, COPD, CHANTAL discussed w/RN and hospitalist in detail. Consult Attestations Medical Necessity Statement: sob, karina, electrolyte abnormalities Time Spent in Patient Care: Greater than 35 minutes Coding Level of Care Code Acute Passport Application Examiner for Siobhan Solorio
--- NOTE | 2020-05-27 06:23 | US_ITS ---
WS: [id number] RENAL ULTRASOUND HISTORY: anel COMPARISON: None available. TECHNIQUE: 2-D and color Doppler imaging of the kidney submitted. Right kidney: 10.8 cm x 5.5 cm x 5.4 cm. Normal echogenicity with no hydronephrosis or mass. Left kidney: 11.8 cm x 5.9 cm x 5.9 cm. Normal echogenicity with no hydronephrosis or mass. Aorta: Normal. Urinary Bladder: Nondistended, Mcfadden catheter in place. US/US renal BI* [id number] IMPRESSION: Normal renal ultrasound.
[2020-05-27 06:47] LABS: Urine Random Sodium 42 mmol/L
[2020-05-27] MEDS: FUROsemide 10 mg/mL SDV 2mL 20 MG IVP (06:49)
[2020-05-27 06:54] LABS: Parathyroid Hormone 52.8 pg/mL (15-65)
[2020-05-27 07:06] LABS: Glucose Point of Care 142 mg/dL (70-110)
[2020-05-27 07:08] LABS: Calcium 9.3 mg/dL (8.5-10.5)
[2020-05-27 08:11] LABS: Alanine Aminotransferase 23 U/L (0-41); Albumin Level 4.3 g/dL (3.5-5.2); Alkaline Phosphatase 57 IU/L (40-130); Anion Gap 17.2 (5-19); Aspartate Amino Transferase 39 U/L (0-40); Blood Urea Nitrogen 40 mg/dL (8-23); Carbon Dioxide 22 mmol/L (22-29); Chloride 88 mmol/L (98-107); Globulin 2.5 g/dL (1.3-4.6); Glucose 134 mg/dL (65-115); Osmolality Calculated 262 mOsm/kg (285-295); Sodium 120 mmol/L (136-145); Total Bilirubin 0.9 mg/dL (0.15-1.2); Total Protein 6.8 g/dL (6.6-8.7)
[2020-05-27] MEDS: heparin 5,000 unit/mL INJ 1 mL 5000 UNIT SUBCUT ×3 (08:18→22:34)
[2020-05-27 08:25] LABS: Creatine Phosphokinase 505 U/L (39-308); Potassium 7.2 mmol/L (3.5-5.1)
[2020-05-27] MEDS: tamsulosin 0.4 mg Capsule PO (09:14)
[2020-05-27] MEDS: dexamethasone 4 mg Tablet PO ×4 (09:14→20:20)
[2020-05-27] MEDS: thiamine 100 mg Tablet PO (09:14)
[2020-05-27] MEDS: cyanocobalamin 1,000 mcg Tablet 500 MCG PO (09:14)
[2020-05-27] MEDS: atorvastatin 40 mg Tablet 20 MG PO (09:14)
[2020-05-27] MEDS: sodium polystyrene sulfonate 15 gm/60 mL Btl 30 GM PO (09:14)
[2020-05-27] MEDS: folic acid 1 mg Tablet PO (09:14)
[2020-05-27] MEDS: calcium gluconate 0.1 gm/mL 10% SDV 10mL 1 GM IVP (09:15)
[2020-05-27] MEDS: dextrose 50% syringe 50 mL IVP (09:29)
[2020-05-27 09:37] LABS: Potassium, Radom Urine 31 mmol/L; Urine Random Chloride 53 mmol/L; Urine Random Sodium 63 mmol/L
--- NOTE | 2020-05-27 09:37 | PC.CHAP ---
Pastoral Care Encounter/Spiritual Assessment Type of Contact [] Declined foundry hand visit [] Patient/Family/Request visit [] Outpatient visit [] Follow-up visit [] Physician referral [] Code/Alert [] Routine visit [] Staff referral [] Actively dying [] Patient sleeping [] Family support [] [] Out of room [] Palliative care [] [x] Receiving care in room [] Pre-surgical visit [] Trauma [] Long length of stay [] ICU visit [] Other: Relational/Emotional Strength [] Patient feels connected with others/family/visitors/staff [] Distress [] Loneliness/isolation [] Abandonment Spirituality of Patient [] Person of Maggie [] Attends Yazidi of their Maggie [] Believes in Prayer [] Reads Bible or Baptism materials [] There are Spiritual issues to be addressed Student Teacher Interventions [x] Prayer [] Active listening [] Non-anxious presence [] Spiritual/emotional support [] Crisis/trauma care [] Spiritual counseling [] Bereavement support [] Provided bereavement packet [] Provided Bible/devotional materials [] Provided toy/stuffed animal, coloring book to patient or family member [] Provided Communion [] Anointing/[place]alo [] Salvation [x] Completed spiritual assessment [] Other: Impact on Illness or Injury [] Angry [] Fearful [] Anxious [] Often cries [] Exhaustion [] Unable to work [] Unable to attend islam [] Unable to walk/stand [] Unable to read [] Unable to drive [] Unable to eat/drink [] Unable to sleep [] Unable to be with family [] Patient intubated [] Other: Summary Time spent with patient
[2020-05-27] MEDS: insulin regular-human 10 UNIT in SYRINGE 1 EACH IVP (10:02)
[2020-05-27] MEDS: sodium chloride 0.9% 1,000 ML 150 ML IV (10:02)
[2020-05-27 10:41] LABS: Urine Protein Random 10 mg/dL
[2020-05-27 11:23] LABS: Glucose Point of Care 153 mg/dL (70-110)
--- NOTE | 2020-05-27 11:28 | PC.NURSE ---
report called to [facility] in icu, awaiting on era to put in transfer orders. when they are in we will transport patient to icu 3.
[2020-05-27] MEDS: sodium chloride 3% 500 ML 60 ML IV (12:33)
[2020-05-27 12:44] LABS: Creatine Phosphokinase 430 U/L (39-308)
[2020-05-27 13:19] LABS: Anion Gap 18.2 (5-19); Blood Urea Nitrogen 41 mg/dL (8-23); Carbon Dioxide 21 mmol/L (22-29); Chloride 89 mmol/L (98-107); Glucose 123 mg/dL (65-115); Osmolality Calculated 263 mOsm/kg (285-295); Sodium 121 mmol/L (136-145)
[2020-05-27 13:24] LABS: Potassium 7.2 mmol/L (3.5-5.1)
--- NOTE | 2020-05-27 13:41 | PM.PN ---
Subjective Subjective: Interval history: Patient reports that he had difficulty initiating urination. Reports that he was unable to urinate at all. He had evidence of retention and Mcfadden catheter was placed. He denies shortness of breath or chest pain. He does report chronic dyspnea on exertion which is unchanged for many years. He uses CPAP at home for sleep apnea. Reports that he has been using 8 tablets of [place] daily for chronic back pain. He denies use of NSAIDs or other medications otherwise except Tylenol PM at night to sleep. Patient developed acute kidney injury with hyperkalemia. Discussed with Dr. Carreon, nephrology and plan to proceed with dialysis catheter placement and dialysis today. Vitals/I&O/Wt Last Vital Signs Temp 96.4 F L 05/27/20 10:45 Pulse 87 05/27/20 10:45 Resp 20 H 05/27/20 12:37 BP 125/51 05/27/20 10:45 Pulse Ox 98 05/27/20 12:37 05/26/20 05/27/20 05/27/20 22:59 06:59 14:59 Intake Total 1120 / 1120 0.1 / 0.1 Output Total 500 / 500 450 / 450 Balance 620 / 620 -449.9 / -449.9 Weight last 48 hrs Weight 176.629 kg Weight 170.097 kg Physical Exam Const: COMMON NORMALS: no acute distress and patient oriented x3 Resp: COMMON NORMALS: normal respiratory effort and clear to auscultation bilaterally AUSCULTATION: clear to auscultation bilaterally Cardio: COMMON NORMALS: regular rate, regular rhythm and S2 normal heart sound present RATE: regular rate RHYTHM: regular rhythm HEART SOUNDS: S2 normal heart sound present OTHER: No lower extremity edema GI: COMMON NORMALS: Normal to inspection, nondistended, normoactive bowel sounds present, Soft to palpation and non-tender PALPATION: Yes Soft to palpation OTHER: Obese and round Neuro: COMMON NORMALS: patient oriented x3 and no focal motor deficits Urinary Catheter Management^: Mcfadden: Cath Placed During This Visit: yes Reason for Continuing Indwelling Catheter: Acute Urinary Retention or Obstruction Urinary Catheter Date of Insertion: 05/27/20 Urinary Catheter Time of Insertion: 07:00 Data : 05/27/20 01:19 05/27/20 12:00 A&P Assessment and plan (1) Generalized weakness: Status: Acute (2) Hyponatremia: Status: Acute (3) Hypocalcemia: Status: Acute (4) Hypomagnesemia: Status: Acute (5) Alcohol abuse: Status: Acute (6) Acute kidney injury: Status: Acute (7) Hyperkalemia: Status: Acute (8) Urinary retention: Present on admission and likely related to opioid use. Status: Acute Additional A&P Information Generalized weakness This most likely secondary to leading a sedentary lifestyle, alcohol abuse, morbid obesity, sleep apnea Hyponatremia, anemia with underlying lumbar radiculopathy I will start him on thiamine and folic acid and cyanocobalamin No active signs of stroke Acute on chronic hyponatremia It is hard to assess his volume status however he has history of alcohol abuse, previously his sodium level has stayed low as low as 116(required hypertonic saline) No acute neurological signs at this visit Avoid normal saline secondary to history of alcohol abuse, with fluid restriction if sodium is correcting 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, check urine and serum sodium level, TSH I will hold SSRI for now Otoole is denying recent diarrhea or vomiting His hydrochlorothiazide has been discontinued at home he is taking Lasix Hypomagnesemia and hypocalcemia Replenish Check PTH level No arrhythmia noted Chronic macrocytic anemia We do not have recent hemoglobin level, however in 2018, hemoglobin was 13 Patient is not endorsing any black tarry stool, hematemesis, hematochezia, I do suspect alcohol induced anemia to be one of the factors, Initiate B12 folic acid level DVT prophylaxis: Lovenox 30 twice daily considering high BMI, hemoglobin level is dropping currently stop anticoagulant agents Regular diet to allow liberal salt intake Full code PLAN: Dr. Ley will place hemodialysis catheter and patient will be dialyzed. UA to rule out UTI. Appreciate Dr. Carreon's help. Attestations Medical Necessity Statement*: Patient with acute kidney injury and severe hyperkalemia requires close ICU monitoring and treatment due to high risk of deterioration Coding Level of Care Code Acute Senior Business Process Analyst for Siobhan Solorio Diagnoses Generalized weakness R53.1 Hyponatremia E87.1 Hypocalcemia E83.51 Hypomagnesemia E83.42 Alcohol abuse F10.10 Acute kidney injury N17.9 Hyperkalemia E87.5 Urinary retention R33.9
[2020-05-27 14:36] LABS: Hepatitis B Surface AB 3.5 (0-8.5); Hepatitis B Surface Antigen Non-Reactive (Nonreactive); Hepatitis C Virus Antibody Non-Reactive (Nonreactive)
--- NOTE | 2020-05-27 14:39 | P.CONIM_ITS ---
Providers/Reason For Consult Consulting Physican/Specialty*: General Surgery Nickolas Ley MD Reason for Consult*: Requesting temporary hemodialysis catheter placement. Attending Physician: Rommel Velasquez MD Primary Care Provider: Corrina Thakkar History of Present Illness History of Present Illness Enzo Trujillo is a 74 year old male admitted recently with some neurologic symptoms. He is also suffered an acute kidney injury with resulting hyperkalemia. Dr. Boudreaux from nephrology has asked by would place a temporary hemodialysis catheter placement for dialysis. The patient denies any previous history of surgery on the upper chest or groin areas. He has had an anterior cervical fusion. He is on subcutaneous heparin. Review of Systems General: Reports: 10 or more systems reviewed and unremarkable except in HPI and below Const: Denies: fever(s) ENMT: Reports: nasal congestion and post nasal drip Resp: Denies: dyspnea GI: Denies: abdominal pain Meds/Allergies Home Medications and Allergies Home Medications Medication Instructions Recorded Confirmed Last Taken Type atorvastatin 20 mg tablet 20 mg PO DAILY 12/25/19 05/27/20 Unknown History diphenhydramine 25 2 tab PO BEDTIME PRN tab 12/25/19 05/27/20 Unknown History mg-acetaminophen 500 mg tablet escitalopram oxalate 10 mg tablet 20 mg PO DAILY 12/25/19 05/27/20 Unknown History glipizide 5 mg tablet 5 mg PO DAILY 12/25/19 05/27/20 Unknown History hydrochlorothiazide 25 mg tablet 25 mg PO DAILY 12/25/19 05/27/20 Unknown History hydrocodone 10 mg-acetaminophen 2 tab PO Q6H PRN tab 12/25/19 05/27/20 Unknown History 325 mg tablet lisinopril 10 mg tablet 10 mg PO DAILY 12/25/19 05/27/20 Unknown History mirtazapine 30 mg tablet 30 mg PO BEDTIME 12/25/19 05/27/20 Unknown History pantoprazole 40 mg tablet,delayed 40 mg PO DAILY 12/25/19 05/27/20 Unknown His tory release furosemide 20 mg tablet 40 mg PO DAILY PRN tab 01/10/20 05/27/20 Unknown History albuterol sulfate 1 inh INHALATION QID PRN 05/27/20 05/27/20 Unknown History albuterol sulfate 2.5 mg INHALATION QID PRN 05/27/20 05/27/20 Unknown History budesonide-formoterol [Symbicort] 1 puff INHALATION BID 05/27/20 05/27/20 Unknown History ergocalciferol (vitamin D2) See Rx Instructions .ROUTE .COMPLEX 05/27/20 05/27/20 Unknown History gabapentin See Rx Instructions .ROUTE .COMPLEX 05/27/20 05/27/20 Unknown History insulin glargine U-300 conc 30 unit SUBCUT DAILY 05/27/20 05/27/20 Unknown History [Toujeo SoloStar U-300 Insulin] insulin lispro [Humalog KwikPen 8 unit SUBCUT BID 05/27/20 05/27/20 Unknown History Insulin] semaglutide [Ozempic] 0.25 mg SUBCUT Q7D 05/27/20 05/27/20 Unknown History spironolactone 100 mg PO DAILY 05/27/20 05/27/20 Unknown History Allergies Allergy/AdvReac Type Severity Reaction Status Date / Time bupropion [From Wellbutrin] AdvReac mental Verified 04/15/20 15:22 alteration Current Medications Current Medications Generic Name Dose Route Start Last Admin Trade Name Freq PRN Reason Stop Dose Admin Atorvastatin Calcium 20 mg 05/27/20 09:00 05/27/20 09:14 Atorvastatin 40 Mg Tablet PO 20 mg DAILY LEXI Administration Cyanocobalamin 500 mcg 05/27/20 09:00 05/27/20 09:14 Cyanocobalamin 1,000 Mcg Tablet PO 500 mcg DAILY LEIX Administration Dexamethasone 4 mg 05/27/20 09:00 05/27/20 11:59 Dexamethasone 4 Mg Tablet PO 4 mg QID LEXI Administration Dextrose 50 ml 05/27/20 01:40 05/27/20 09:29 Dextrose 50% Syringe 50 Ml IVP 50 ml PRN PRN Administration hypoglycemia protocol Protocol Fluticasone Propionate 1 spray 05/27/20 02:23 05/27/20 09:18 Fluticasone Nasal Branch 16gm Btl NASAL 1 spray BID LEXI Administration Folic Acid 1 mg 05/27/20 09:00 05/27/20 09:14 Folic Acid 1 Mg Tablet PO 1 mg DAILY LEXI Administration Heparin Sodium (Beef Lung) 5,000 unit 05/27/20 07:30 05/27/20 08:18 Heparin 5,000 Unit/Ml Inj 1 Ml SUBCUT 5,000 unit Q8H LEXI Administration Hydromorphone HCl 2 mg 05/27/20 03:08 05/27/20 12:37 Hydromorphone 1 Mg/Ml Inj 1 Ml IVP 2 mg Q4H PRN Administration PAIN Insulin Aspart 0 unit 05/27/20 08:00 05/27/20 11:59 Insulin Aspart 100 Unit/1 Ml SUBCUT 2 unit WM&BEDTIME LEXI Administration Protocol Sodium Polystyrene Sulfonate 15 gm 05/27/20 09:00 05/27/20 09:15 Sodium Polystyrene Sulfonate 15 Gm/60 Ml Btl PO Not Given Q6H LEXI Tamsulosin HCl 0.4 mg 05/27/20 09:00 05/27/20 09:14 Tamsulosin 0.4 Mg Capsule PO 0.4 mg DAILY LEXI Administration Thiamine Mononitrate 100 mg 05/27/20 09:00 05/27/20 09:14 Thiamine 100 Mg Tablet PO 100 mg DAILY LEXI Administration PFSH Acute PFSH: Medical History Anemia Bursitis, shoulder Depression Diabetes mellitus Displacement of lumbar disc with radiculopathy Gastroesophageal reflux disease Hypertension Intervertebral disc disorder with radiculopathy of lumbosacral region Lumbar stenosis with neurogenic claudication Moderate obstructive sleep apnea Morbid obesity with BMI of 45.0-49.9, adult Obesity Osteoarthritis of spine with radiculopathy, lumbar region Other specified anxiety disorders Shortness of breath on exertion The EKG from 11/29/2017 revealed sinus rhythm with a first-degree AV block. According the patient, he had another EKG recently and the results are not available. Spinal stenosis, lumbar region with neurogenic claudication Surgical History History of cervical spinal surgery (~2013) 2016 Dr. Mark Caldera ACD History of knee replacement 2009 [place] left total knee replacement 2008 [place] right total knee replacement History of repair of rotator cuff 10/24/2013 Dr. Len Angel: Acromioplasty, distal clavicle resection, and rotator cuff repair with suture anchors, absorbable. Family History Sister Depression Diabetes Father Depression Cancer Grandmother Depression Brother Diabetes Mother Stroke Social History (Updated 05/27/20 @ 01:07 by Shelbie Cates MD) Smoking and tobacco status: former smoker Alcohol intake: current Alcohol type: beer Alcohol use comment: 2-3 beers a day Substance/Drug Use: never Household members: family and other Details: sister Marital status: / Current occupational status: retired and disabled History of recent travel: No Vitals/I&O/Wt Last Vital Signs Temp 96.4 F L 05/27/20 10:45 Pulse 87 05/27/20 10:45 Resp 20 H 05/27/20 12:37 BP 125/51 05/27/20 10:45 Pulse Ox 98 05/27/20 12:37 05/26/20 05/27/20 05/27/20 22:59 06:59 14:59 Intake Total 1120 / 1120 580.1 / 580.1 Output Total 500 / 500 450 / 450 Balance 620 / 620 130.1 / 130.1 Weight last 48 hrs Weight 389 lb 6.4 oz Weight 375 lb Physical Exam Narrative: EXAM NARRATIVE: The patient was encountered in the ICU. He is morbidly obese. His neck is very short and not well-defined. His heart seems regular. The lungs are clear anteriorly. The abdomen is morbidly obese but is nontender. It is difficult for me to feel femoral pulses on either side despite what appears to be an adequate blood pressure. Urinary Catheter Management^: Mcfadden: Cath Placed During This Visit: yes Reason for Continuing Indwelling Catheter: Acute Urinary Retention or Obstruction Urinary Catheter Date of Insertion: 05/27/20 Urinary Catheter Time of Insertion: 07:00 A&P Assessment and plan (1) Acute kidney injury: The patient has been counseled regarding hemodialysis catheter placement. He seems to understand and is given consent. Plan attempted femoral vein temporary hemodialysis catheter placement in the ICU today. Procedural ultrasound/interpretation will be used. Status: Acute (2) Hyperkalemia: Status: Acute Consult Attestations Medical Necessity Statement: See admitting service's notation. Coding Level of Care Code Acute Facility Planner for Siobhan Solorio Diagnoses Acute kidney injury N17.9 Hyperkalemia E87.5
--- NOTE | 2020-05-27 14:47 | P.OP_ITS ---
Operative Report Date of procedure: May 27, 2020 Pre-op Diagnosis: Acute kidney injury with resulting hyperkalemia. Post-op diagnosis: same Procedure Done: 12 [place] dual-lumen 20 cm temporary hemodialysis catheter placement into the right femoral vein using ultrasound guidance/interpretation. Pathology: none sent Surgeon: Nickolas Ley Anesthesia: Local Estimated blood loss (mL): 25 Complications: None. Condition: stable Disposition: ICU Procedure: The patient was encountered in the ICU. Intraprocedural ultrasound was used to find the right femoral vein as evidenced by its size and compre ssibility. The site was marked. The right femoral region was then prepped and draped in a sterile fashion. 1% lidocaine was used for local anesthetic and the right femoral vein was accessed with a needle and syringe as evidenced by the return of dark nonpulsatile blood. The guidewire was easily passed down the needle and the needle was removed. A scalpel was used to slightly enlarge the skin opening at the insertion point of the J-wire. Small to medium sized dilators were then sequentially placed over the guidewire to dilate the skin and subcutaneous tissue. The dialysis catheter was then easily passed over the wire into the vein. The wire was removed. Both ports were aspirated and flushed with hep flush solution. Both ports showed excellent flow and were then left filled with hep flush solution. The catheter was sewn in place with some interrupted sutures of 3-0 silk. A sterile dressing followed. The patient was left in the ICU postoperatively in stable condition.
[2020-05-27 15:36] LABS: Add Urine Microscopic? YES; Bilirubin Urine Neg (Negative); Blood Urine 3+ (Negative); Glucose Urine UA 2+ (Normal); Ketones Urine Negative (Negative); Leukocyte Esterase Urine Negative (Negative); Nitrate Urine Negative (Negative); Protein Urine Neg (Negative); Urine Appearance Clear (CLEAR); Urine Color Yellow (Yellow); Urobilinogen Urine Norm (Negative); pH Urine 5 (5-7)
[2020-05-27 15:51] LABS: Add Urine Culture? Yes; Bacteria Urine TRACE /hpf; Squamous Epithelial Cell Urine 0-4 /hpf (0-5)
[2020-05-27 16:00] LABS: Sodium 124 mmol/L (136-145)
[2020-05-27 17:19] LABS: Glucose Point of Care 160 mg/dL (70-110)
[2020-05-27 20:08] LABS: Glucose Point of Care 180 mg/dL (70-110)
[2020-05-27 22:07] LABS: Anion Gap 16.6 (5-19); Blood Urea Nitrogen 23 mg/dL (8-23); Calcium 9.4 mg/dL (8.5-10.5); Carbon Dioxide 25 mmol/L (22-29); Chloride 95 mmol/L (98-107); Glucose 182 mg/dL (65-115); Osmolality Calculated 280 mOsm/kg (285-295); Potassium 5.6 mmol/L (3.5-5.1); Sodium 131 mmol/L (136-145)
[2020-05-27] MEDS: sodium chloride 0.45% 1,000 ML 90 ML IV (22:59)
[2020-05-28] VITALS (159 sets, daily range): BP systolic 106–178; BP diastolic 51–87; PULSE 51–101; RESP 8–25; TEMP 36.5–37; O2SAT 80–99
--- NOTE | 2020-05-28 00:35 | PC.NURSE ---
Patient resting in bed with cpap in place. Patient is alert and orientated. Patient is able to voice concerns and make needs known. Denies any pain. Call light within reach. Continue care.
[2020-05-28] MEDS: sodium polystyrene sulfonate 15 gm/60 mL Btl PO ×2 (02:04→08:19)
[2020-05-28 04:58] LABS: Hematocrit 32.6 % (42.0-52.0); Hemoglobin 10.4 g/dL (11.7-16.6); Lymphocytes # 0.6 10^3/uL (0.8-4.8); Lymphocytes % 13.6 %; Mean Corpuscular HGB Conc 31.9 g/dL (30.0-36.0); Mean Corpuscular Hemoglobin 31.6 pg (28.0-34.0); Mean Corpuscular Volume 99.1 fL (80-94); Mean Platelet Volume 10.7 fL (7.4-10.4); Monocytes # 0.1 10^3/uL (0.2-0.9); Monocytes % 1.8 %; Neutrophils # 3.84 10^3/uL (1.8-7.7); Neutrophils % 84.4 %; Nucleated Red Blood Cells % 0 %; Platelet Count 207 10^3/cmm (130-400); Red Blood Count 3.29 10^6/uL (4.1-5.3); Red Cell Distribution Width 13.6 % (12.1-15.1); White Blood Count 4.6 10^3/uL (4.0-10.0)
[2020-05-28 05:31] LABS: Alanine Aminotransferase 23 U/L (0-41); Albumin Level 4.2 g/dL (3.5-5.2); Alkaline Phosphatase 57 IU/L (40-130); Aspartate Amino Transferase 33 U/L (0-40); Blood Urea Nitrogen 25 mg/dL (8-23); Calcium 9.5 mg/dL (8.5-10.5); Carbon Dioxide 22 mmol/L (22-29); Chloride 94 mmol/L (98-107); Creatinine Clr Calc Pharmacy 88.9915; Globulin 2.7 g/dL (1.3-4.6); Glucose 197 mg/dL (65-115); Magnesium 2.4 mg/dL (1.7-2.3); Osmolality Calculated 284 mOsm/kg (285-295); Phosphorus 3.6 mg/dL (2.5-4.5); Sodium 132 mmol/L (136-145); Total Bilirubin 0.9 mg/dL (0.15-1.2); Total Protein 6.9 g/dL (6.6-8.7)
[2020-05-28 05:38] LABS: Anion Gap 21.4 (5-19); Potassium 5.4 mmol/L (3.5-5.1)
--- NOTE | 2020-05-28 06:15 | PC.NURSE ---
Patient resting in bed with eyes closed and CPAP in place. Patient did wake up confused at approximatley at 0200 and attempted to transfer self and ended up pulling out both IV's on left side of body. New IV inserted on right wrist with IVF running per orders. Patient has a andrade in place and is draining appropriately. Patients potassium is trending down per labs. Denies any pain at this time, call light is within reach. Continue car.e
[2020-05-28] MEDS: heparin 5,000 unit/mL INJ 1 mL 5000 UNIT SUBCUT ×3 (06:32→23:31)
[2020-05-28 07:19] LABS: Glucose Point of Care 168 mg/dL (70-110)
[2020-05-28] MEDS: tamsulosin 0.4 mg Capsule PO (08:18)
[2020-05-28] MEDS: thiamine 100 mg Tablet PO (08:18)
[2020-05-28] MEDS: atorvastatin 40 mg Tablet 20 MG PO (08:18)
[2020-05-28] MEDS: folic acid 1 mg Tablet PO (08:18)
[2020-05-28] MEDS: cyanocobalamin 1,000 mcg Tablet 500 MCG PO (08:18)
[2020-05-28] MEDS: dexamethasone 4 mg Tablet PO ×4 (08:19→20:47)
[2020-05-28] MEDS: fluticasone nasal spray 16gm Btl 1 SPRAY NASAL ×2 (08:19→17:34)
--- NOTE | 2020-05-28 08:31 | PC.NURSE ---
Rounding patient resting, CPAP in place. Vital signs WNL. patient will awake to verbal command. patient a little confused. stating that he knows he is in [facility] but doesn't remember why he is here. he remembers that he got dialysis yesterday. reoriented patient. patient stated that he is not in any pain at this time. IV in right forearm dry and intact with 0.45% NS infusing at 90mls/hr. will continue to monitor.
--- NOTE | 2020-05-28 09:27 | PC.CHAP ---
Pastoral Care Encounter/Spiritual Assessment Type of Contact [] Declined control clerk repairs visit [] Patient/Family/Request visit [] Outpatient visit [] Follow-up visit [] Physician referral [] Code/Alert [] Routine visit [] Staff referral [] Actively dying [] Patient sleeping [] Family support [] [] Out of room [] Palliative care [] [] Receiving care in room [] Pre-surgical visit [] Trauma [] Long length of stay [] ICU visit [] Other: Relational/Emotional Strength [] Patient feels connected with others/family/visitors/staff [] Distress [] Loneliness/isolation [] Abandonment Spirituality of Patient [] Person of Maggie [] Attends Voodoo of their Maggie [] Believes in Prayer [] Reads Bible or Mu-Ism materials [] There are Spiritual issues to be addressed Fire Chief'S Aide Interventions [x] Prayer [] Active listening [] Non-anxious presence [] Spiritual/emotional support [] Crisis/trauma care [] Spiritual counseling [] Bereavement support [] Provided bereavement packet [] Provided Bible/devotional materials [] Provided toy/stuffed animal, coloring book to patient or family member [] Provided Communion [] Anointing/Freedom [] Salvation [x] Completed spiritual assessment [] Other: Impact on Illness or Injury [] Angry [] Fearful [] Anxious [] Often cries [] Exhaustion [] Unable to work [] Unable to attend synagogue [] Unable to walk/stand [] Unable to read [] Unable to drive [] Unable to eat/drink [] Unable to sleep [] Unable to be with family [] Patient intubated [] Other: Summary Time spent with patient
[2020-05-28] MEDS: HYDROmorphone 1 mg/mL INJ 1 mL 2 MG IVP ×3 (11:40→23:34)
--- NOTE | 2020-05-28 11:50 | PM.PN ---
Subjective Subjective: Interval history: Patient reports feeling better. He was dialyzed and potassium improved. He had large bowel movements after Kayexalate was given. His CMP is still pending this morning. WBC, platelets and hemoglobin appears stable. Urine is not suggestive of UTI. Vitals/I&O/Wt Last Vital Signs Temp 98.6 F 05/28/20 10:40 Pulse 70 05/28/20 10:40 Resp 18 05/28/20 11:40 BP 134/61 05/28/20 10:40 Pulse Ox 94 05/28/20 11:40 05/27/20 05/28/20 05/28/20 22:59 06:59 14:59 Intake Total 300 / 880.1 0 / 880.1 100 / 100 Output Total 3475 / 3925 600 / 4525 Balance -3175 / -3044.9 -600 / -3644.9 100 / 100 Weight last 48 hrs Weight 176.629 kg Weight 170.097 kg Physical Exam Const: COMMON NORMALS: no acute distress and patient oriented x3 Resp: COMMON NORMALS: normal respiratory effort and clear to auscultation bilaterally AUSCULTATION: clear to auscultation bilaterally Cardio: COMMON NORMALS: regular rate, regular rhythm and S2 normal heart sound present RATE: regular rate RHYTHM: regular rhythm HEART SOUNDS: S2 normal heart sound present OTHER: No lower extremity edema GI: COMMON NORMALS: Normal to inspection, nondistended, normoactive bowel sounds present, Soft to palpation and non-tender PALPATION: Yes Soft to palpation OTHER: Obese and round Neuro: COMMON NORMALS: patient oriented x3 and no focal motor deficits Urinary Catheter Management^: Mcfadden: Cath Placed During This Visit: yes Reason for Continuing Indwelling Catheter: Accurate Measurement of Urinary Output in Critically Ill Patients Urinary Catheter Date of Insertion: 05/27/20 Urinary Catheter Time of Insertion: 07:00 Data : 05/28/20 03:10 05/28/20 03:10 Micro: Microbiology 05/27/20 15:12 Urine Culture - Preliminary Urine,Clean Catch A&P Assessment and plan (1) Generalized weakness: Status: Acute (2) Hyponatremia: Status: Acute (3) Hypocalcemia: Status: Acute (4) Hypomagnesemia: Status: Acute (5) Alcohol abuse: Status: Acute (6) Acute kidney injury: Status: Acute (7) Hyperkalemia: Status: Acute (8) Urinary retention: Present on admission and likely related to opioid use. Status: Acute Additional A&P Information Generalized weakness This most likely secondary to leading a sedentary lifestyle, alcohol abuse, morbid obesity, sleep apnea Hyponatremia, anemia with underlying lumbar radiculopathy I will start him on thiamine and folic acid and cyanocobalamin No active signs of stroke Acute on chronic hyponatremia It is hard to assess his volume status however he has history of alcohol abuse, previously his sodium level has stayed low as low as 116(required hypertonic saline) No acute neurological signs at this visit Avoid normal saline secondary to history of alcohol abuse, with fluid restriction if sodium is correcting 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, check urine and serum sodium level, TSH I will hold SSRI for now Otoole is denying recent diarrhea or vomiting His hydrochlorothiazide has been discontinued at home he is taking Lasix Hypomagnesemia and hypocalcemia Replenish Check PTH level No arrhythmia noted Chronic macrocytic anemia We do not have recent hemoglobin level, however in 2018, hemoglobin was 13 Patient is not endorsing any black tarry stool, hematemesis, hematochezia, I do suspect alcohol induced anemia to be one of the factors, Initiate B12 folic acid level DVT prophylaxis: Lovenox 30 twice daily considering high BMI, hemoglobin level is dropping currently stop anticoagulant agents Regular diet to allow liberal salt intake Full code PLAN: Patient to be seen by nephrology service today. Decision for further hemodialysis will be made. Patient is hungry and wants to eat. We will go ahead and start him on consistent carbohydrate diet. We will continue with fluid restriction as recommended by nephrology. We will start patient on Protonix for GI protection. Attestations Medical Necessity Statement*: Patient with acute kidney injury requiring hemodialysis requires close ICU monitoring and treatment due to risk of deterioration. Time Spent in Patient Care: 16 - 35 minutes Coding Level of Care Code Acute Director Community [facility] Nursing for Tabithag Fwd Diagnoses Generalized weakness R53.1 Hyponatremia E87.1 Hypocalcemia E83.51 Hypomagnesemia E83.42 Alcohol abuse F10.10 Acute kidney injury N17.9 Hyperkalemia E87.5 Urinary retention R33.9
[2020-05-28 11:59] LABS: Alanine Aminotransferase 21 U/L (0-41); Albumin Level 4.4 g/dL (3.5-5.2); Alkaline Phosphatase 54 IU/L (40-130); Anion Gap 15.9 (5-19); Aspartate Amino Transferase 25 U/L (0-40); Blood Urea Nitrogen 25 mg/dL (8-23); Calcium 9.5 mg/dL (8.5-10.5); Carbon Dioxide 27 mmol/L (22-29); Chloride 94 mmol/L (98-107); Globulin 2.4 g/dL (1.3-4.6); Glucose 182 mg/dL (65-115); Osmolality Calculated 283 mOsm/kg (285-295); Potassium 4.9 mmol/L (3.5-5.1); Sodium 132 mmol/L (136-145); Total Bilirubin 0.7 mg/dL (0.15-1.2); Total Protein 6.8 g/dL (6.6-8.7)
[2020-05-28] MEDS: pantoprazole DR 40 mg Tablet PO (12:07)
--- NOTE | 2020-05-28 12:35 | PM.PN ---
Subjective Subjective: Interval history: Feels better today, had a good BM. Dialysis went well yesterday. He tolerated it well. Dialysis line and Mcfadden cath remain in place Good urine output 600mL last night and 500mL so far today No uremic Sx Vitals/I&O/Wt Last Vital Signs Temp 98.6 F 05/28/20 10:40 Pulse 79 05/28/20 12:10 Resp 14 05/28/20 12:10 BP 150/74 05/28/20 12:10 Pulse Ox 94 05/28/20 12:10 05/27/20 05/28/20 05/28/20 22:59 06:59 14:59 Intake Total 300 / 880.1 0 / 880.1 1100 / 1100 Output Total 3475 / 3925 600 / 4525 Balance -3175 / -3044.9 -600 / -3644.9 1100 / 1100 Weight last 48 hrs Weight 176.629 kg Weight 170.097 kg Physical Exam Narrative: EXAM NARRATIVE: Constitutional: Awake, conversant, jovial HEENT: Wet mucosa, no jvp, non icteric Lungs: Bilaterally clear without discernible wheeze, rales in all lung zones CVS: S1 S2, no murmurs Abdo: Soft, BS ok Ext 4: Minimal edema, peripheral perfusion with no cyanosis Neurological: Grossly non-focal Urinary Catheter Management^: Mcfadden: Cath Placed During This Visit: yes Reason for Continuing Indwelling Catheter: Accurate Measurement of Urinary Output in Critically Ill Patients Urinary Catheter Date of Insertion: 05/27/20 Urinary Catheter Time of Insertion: 07:00 Data : 05/28/20 03:10 05/28/20 11:31 Micro: Microbiology 05/27/20 15:12 Urine Culture - Preliminary Urine,Clean Catch A&P Additional A&P Information 74 yr old man 1. KARINA - possible retention but he did not have a huge residual (reported to me of only 300mL) - on combination diuretics to cause IVVD and ACEi/aldactone - creatinine now low and urine output robust - leave Mcfadden and Dialysis line for the time being, possible DC in the am - am labs 2. Lytes now stable - DC Kayexalate 3. LE edema; ? echo likely related obesity Attestations Medical Necessity Statement*: eval for KARINA Coding Level of Care Code Acute Automatic Outsole Cutter for Chg Fwd
--- NOTE | 2020-05-28 15:18 | PC.NURSE ---
PT PT came to see patient. pt able to sit on side of bed and talk on phone. patient tolerated well.
[2020-05-28 15:39] LABS: Osmolality Serum 272 mOsm/kg (278-305)
[2020-05-28 15:39] LABS: Osmolality Urine 299 mOsm/kg (50-1200)
[2020-05-28 17:24] LABS: Glucose Point of Care 196 mg/dL (70-110)
[2020-05-28 20:45] LABS: Glucose Point of Care 193 mg/dL (70-110)
[2020-05-29] VITALS (24 sets, daily range): BP systolic 120–169; BP diastolic 42–78; PULSE 51–86; RESP 9–22; TEMP 36.8–36.9; O2SAT 94–98
[2020-05-29 03:59] LABS: Magnesium 2.4 mg/dL (1.7-2.3); Phosphorus 3.7 mg/dL (2.5-4.5)
[2020-05-29 08:01] LABS: Glucose Point of Care 184 mg/dL (70-110)
[2020-05-29 08:19] LABS: Alanine Aminotransferase 20 U/L (0-41); Albumin Level 4.3 g/dL (3.5-5.2); Alkaline Phosphatase 50 IU/L (40-130); Anion Gap 18.7 (5-19); Aspartate Amino Transferase 23 U/L (0-40); Blood Urea Nitrogen 31 mg/dL (8-23); Calcium 9.8 mg/dL (8.5-10.5); Carbon Dioxide 23 mmol/L (22-29); Chloride 95 mmol/L (98-107); Creatinine Clr Calc Pharmacy 88.9915; Globulin 2.5 g/dL (1.3-4.6); Glucose 198 mg/dL (65-115); Osmolality Calculated 286 mOsm/kg (285-295); Potassium 4.7 mmol/L (3.5-5.1); Sodium 132 mmol/L (136-145); Total Bilirubin 0.6 mg/dL (0.15-1.2); Total Protein 6.8 g/dL (6.6-8.7)
[2020-05-29] MEDS: folic acid 1 mg Tablet PO (09:21)
[2020-05-29] MEDS: atorvastatin 40 mg Tablet 20 MG PO (09:21)
[2020-05-29] MEDS: pantoprazole DR 40 mg Tablet PO (09:21)
[2020-05-29] MEDS: thiamine 100 mg Tablet PO (09:21)
[2020-05-29] MEDS: cyanocobalamin 1,000 mcg Tablet 500 MCG PO (09:21)
[2020-05-29] MEDS: tamsulosin 0.4 mg Capsule PO (09:21)
[2020-05-29] MEDS: heparin 5,000 unit/mL INJ 1 mL 5000 UNIT SUBCUT ×2 (09:22→17:10)
[2020-05-29] MEDS: HYDROmorphone 1 mg/mL INJ 1 mL 2 MG IVP ×3 (09:22→22:23)
[2020-05-29] MEDS: fluticasone nasal spray 16gm Btl 1 SPRAY NASAL ×2 (09:22→17:12)
[2020-05-29] MEDS: dexamethasone 4 mg Tablet PO ×2 (09:22→13:21)
[2020-05-29 11:18] LABS: Glucose Point of Care 176 mg/dL (70-110)
--- NOTE | 2020-05-29 11:55 | PC.NURSE ---
Andrade Catheter andrade catheter removed by nurse. patient tolerated well. 325ml of urine drained from andrade bag prior to removal.
--- NOTE | 2020-05-29 12:39 | PM.PN ---
Subjective Subjective: Interval history: Feels well today with no acute complaints. Breathing comfortably on his nasal BiPAP. Minimal global edema. No uremic symptoms. Good urine output noted via Mcfadden catheter. Vitals/I&O/Wt Last Vital Signs Temp 98.1 F 05/28/20 19:00 Pulse 60 05/29/20 12:00 Resp 13 05/29/20 12:00 BP 167/74 05/29/20 12:00 Pulse Ox 96 05/29/20 12:00 05/28/20 05/29/20 05/29/20 22:59 06:59 14:59 Intake Total 250 / 1500 590 / 590 Output Total 850 / 850 700 / 1550 325 / 325 Balance -600 / 650 -700 / -50 265 / 265 Physical Exam Narrative: EXAM NARRATIVE: Constitutional: Awake, conversant, jovial HEENT: Wet mucosa, no jvp, non icteric Lungs: Bilaterally clear without discernible wheeze, rales in all lung zones CVS: S1 S2, no murmurs Abdo: Soft, BS ok Ext 4: Minimal edema, peripheral perfusion with no cyanosis Neurological: Grossly non-focal Urinary Catheter Management^: Mcfadden: Cath Placed During This Visit: yes Reason for Continuing Indwelling Catheter: Accurate Measurement of Urinary Output in Critically Ill Patients Urinary Catheter Date of Insertion: 05/27/20 Urinary Catheter Time of Insertion: 07:00 Data : 05/28/20 03:10 05/29/20 03:04 Micro: Microbiology 05/27/20 15:12 Urine Culture - Final Urine,Clean Catch A&P Additional A&P Information 74 yr old man 1. KARINA - possible retention but he did not have a huge residual (reported to me of only 300mL) - on combination diuretics to cause IVVD and ACEi/aldactone - creatinine now low and urine output robust - ok to remove Mcfadden and Dialysis line - am labs 2. Lytes now stable - DC Kayexalate 3. LE edema; ? echo likely related obesity Acute renal issues have now resolved. I will continue to follow this case peripherally at this time. Please not hesitate to contact our team should we be of further assistance. Attestations Medical Necessity Statement*: Management of acute kidney injury and hyperkalemia Coding Level of Care Code Acute Labor And Delivery Nurse for Siobhan Solorio
--- NOTE | 2020-05-29 12:53 | PC.NURSE ---
Hemodialysis catheter Call to . verbal order to have remove right femoral HD catheter. called and informed of order to DC catheter.
--- NOTE | 2020-05-29 13:46 | P.PN_ITS ---
Subjective Subjective: Interval history: Patient denies shortness of breath or chest pain this morning. Patient is now making large amount of urine. Nephrology recommends to remove Mcfadden catheter and dialysis catheter. Vitals/I&O/Wt Last Vital Signs Temp 98.1 F 05/28/20 19:00 Pulse 60 05/29/20 12:00 Resp 13 05/29/20 12:00 BP 167/74 05/29/20 12:00 Pulse Ox 96 05/29/20 12:00 05/28/20 05/29/20 05/29/20 22:59 06:59 14:59 Intake Total 250 / 1500 590 / 590 Output Total 850 / 850 700 / 1550 325 / 325 Balance -600 / 650 -700 / -50 265 / 265 Physical Exam Const: COMMON NORMALS: no acute distress and patient oriented x3 Resp: COMMON NORMALS: normal respiratory effort and clear to auscultation bilaterally AUSCULTATION: clear to auscultation bilaterally Cardio: COMMON NORMALS: regular rate, regular rhythm and S2 normal heart sound present RATE: regular rate RHYTHM: regular rhythm HEART SOUNDS: S2 normal heart sound present OTHER: No lower extremity edema GI: COMMON NORMALS: Normal to inspection, nondistended, normoactive bowel sounds present, Soft to palpation and non-tender PALPATION: Yes Soft to palpation OTHER: Obese and round Neuro: COMMON NORMALS: patient oriented x3 and no focal motor deficits Urinary Catheter Management^: Mcfadden: Cath Placed During This Visit: yes Reason for Continuing Indwelling Catheter: Accurate Measurement of Urinary Output in Critically Ill Patients Urinary Catheter Date of Insertion: 05/27/20 Urinary Catheter Time of Insertion: 07:00 Data : 05/28/20 03:10 05/29/20 03:04 Micro: Microbiology 05/27/20 15:12 Urine Culture - Final Urine,Clean Catch A&P Assessment and plan (1) Generalized weakness: Status: Acute (2) Hyponatremia: Status: Acute (3) Hypocalcemia: Status: Acute (4) Hypomagnesemia: Status: Acute (5) Alcohol abuse: Status: Acute (6) Acute kidney injury: Status: Acute (7) Hyperkalemia: Status: Acute (8) Urinary retention: Present on admission and likely related to opioid use. Status: Acute Additional A&P Information Generalized weakness This most likely secondary to leading a sedentary lifestyle, alcohol abuse, morbid obesity, sleep apnea Hyponatremia, anemia with underlying lumbar radiculopathy I will start him on thiamine and folic acid and cyanocobalamin No active signs of stroke Acute on chronic hyponatremia It is hard to assess his volume status however he has history of alcohol abuse, previously his sodium level has stayed low as low as 116(required hypertonic saline) No acute neurological signs at this visit Avoid normal saline secondary to history of alcohol abuse, with fluid restriction if sodium is correcting 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, check urine and serum sodium level, TSH I will hold SSRI for now Otoole is denying recent diarrhea or vomiting His hydrochlorothiazide has been discontinued at home he is taking Lasix Hypomagnesemia and hypocalcemia Replenish Check PTH level No arrhythmia noted Chronic macrocytic anemia We do not have recent hemoglobin level, however in 2018, hemoglobin was 13 Patient is not endorsing any black tarry stool, hematemesis, hematochezia, I do suspect alcohol induced anemia to be one of the factors, Initiate B12 folic acid level DVT prophylaxis: Lovenox 30 twice daily considering high BMI, hemoglobin level is dropping currently stop anticoagulant agents Regular diet to allow liberal salt intake Full code PLAN: We will remove Mcfadden catheter make sure patient can urinate. We will proceed with femoral dialysis catheter removal today and we will transfer patient to medical [facility] and continue monitoring for 1 more day. Allow several hours post hemodialysis catheter removal to initiate gentle for now physical therapy. Restart Lexapro. Discontinue dexamethasone and monitor. Attestations Medical Necessity Statement*: Patient with severe acute kidney injury requires close inpatient monitoring and treatment until deemed safe for discharge Time Spent in Patient Care: 16 - 35 minutes Coding Level of Care Code Acute Sales Compensation Analyst for Tabithag Fwd Diagnoses Generalized weakness R53.1 Hyponatremia E87.1 Hypocalcemia E83.51 Hypomagnesemia E83.42 Alcohol abuse F10.10 Acute kidney injury N17.9 Hyperkalemia E87.5 Urinary retention R33.9
[2020-05-29 17:06] LABS: Glucose Point of Care 210 mg/dL (70-110)
[2020-05-29 20:56] LABS: Glucose Point of Care 238 mg/dL (70-110)
[2020-05-30] VITALS (15 sets, daily range): BP systolic 129–164; BP diastolic 65–85; PULSE 57–88; RESP 14–18; TEMP 36.5–37.3; O2SAT 95–99
[2020-05-30] MEDS: heparin 5,000 unit/mL INJ 1 mL 5000 UNIT SUBCUT ×3 (01:19→18:04)
[2020-05-30 05:47] LABS: Hematocrit 30.6 % (42.0-52.0); Hemoglobin 9.8 g/dL (11.7-16.6); Lymphocytes # 1.8 10^3/uL (0.8-4.8); Lymphocytes % 26.8 %; Mean Corpuscular Hemoglobin 32.2 pg (28.0-34.0); Mean Corpuscular Volume 100.7 fL (80-94); Mean Platelet Volume 10.7 fL (7.4-10.4); Monocytes # 0.6 10^3/uL (0.2-0.9); Monocytes % 8.5 %; Neutrophils # 4.26 10^3/uL (1.8-7.7); Neutrophils % 64.4 %; Nucleated Red Blood Cells % 0 %; Platelet Count 191 10^3/cmm (130-400); Red Blood Count 3.04 10^6/uL (4.1-5.3); Red Cell Distribution Width 13.9 % (12.1-15.1); White Blood Count 6.6 10^3/uL (4.0-10.0)
[2020-05-30 06:03] LABS: Alanine Aminotransferase 27 U/L (0-41); Albumin Level 4.4 g/dL (3.5-5.2); Alkaline Phosphatase 49 IU/L (40-130); Anion Gap 16.2 (5-19); Aspartate Amino Transferase 35 U/L (0-40); Blood Urea Nitrogen 32 mg/dL (8-23); Calcium 9.8 mg/dL (8.5-10.5); Carbon Dioxide 27 mmol/L (22-29); Chloride 96 mmol/L (98-107); Globulin 2.3 g/dL (1.3-4.6); Glucose 174 mg/dL (65-115); Osmolality Calculated 291 mOsm/kg (285-295); Potassium 4.2 mmol/L (3.5-5.1); Sodium 135 mmol/L (136-145); Total Bilirubin 0.5 mg/dL (0.15-1.2); Total Protein 6.7 g/dL (6.6-8.7)
[2020-05-30 06:40] LABS: Glucose Point of Care 168 mg/dL (70-110)
[2020-05-30 07:58] LABS: Ferritin 329 ng/mL (30-400); Iron 99 ug/dL (59-158); Percent Saturation 32.2 % (20-50); Total Iron Binding Capacity 307 mcg/dl; Unsaturated Iron Binding 208 ug/dL (112-347)
[2020-05-30 08:10] LABS: Folate Level 17.1 ng/mL (4.5-32.2)
[2020-05-30 08:14] LABS: Vitamin B12 576 pg/mL (232-1245)
[2020-05-30] MEDS: albuterol 8 gm MDI 1 PUFF INHALATION ×2 (08:43→20:19)
[2020-05-30] MEDS: escitalopram 10 mg Tablet 20 MG PO (08:48)
[2020-05-30] MEDS: atorvastatin 40 mg Tablet 20 MG PO (08:49)
[2020-05-30] MEDS: fluticasone nasal spray 16gm Btl 1 SPRAY NASAL ×2 (08:49→18:04)
[2020-05-30] MEDS: cyanocobalamin 1,000 mcg Tablet 500 MCG PO (08:49)
[2020-05-30] MEDS: tamsulosin 0.4 mg Capsule PO (08:50)
[2020-05-30] MEDS: thiamine 100 mg Tablet PO (08:50)
[2020-05-30] MEDS: folic acid 1 mg Tablet PO (08:50)
[2020-05-30] MEDS: pantoprazole DR 40 mg Tablet PO (08:51)
[2020-05-30] MEDS: HYDROmorphone 1 mg/mL INJ 1 mL 2 MG IVP ×3 (09:05→23:44)
[2020-05-30 11:06] LABS: Glucose Point of Care 188 mg/dL (70-110)
[2020-05-30 11:06] LABS: Glucose Point of Care 234 mg/dL (70-110)
--- NOTE | 2020-05-30 11:26 | PM.PN ---
Subjective Subjective: Interval history: Patient denies shortness of breath or chest pain this morning. Reports urinating without difficulty. His kidney function remained stable. He requires to use his CPAP every time he lays down. We had extensive discussion regarding importance of weight loss which will likely improve his back pain as he takes large amount of opioid medications. He continues to be anemic but denies melena or hematochezia. Reports that he had colonoscopy long time ago. Reports that he was scheduled to have cardiac evaluation as well as to see Dr. Garner for weight reduction surgery. Vitals/I&O/Wt Last Vital Signs Temp 98.2 F 05/30/20 07:49 Pulse 72 05/30/20 08:49 Resp 18 05/30/20 09:05 BP 147/75 05/30/20 07:49 Pulse Ox 95 05/30/20 08:49 05/29/20 05/30/20 05/30/20 22:59 06:59 14:59 Intake Total 240 / 240 Output Total 0 / 325 700 / 1025 400 / 400 Balance 0 / 265 -700 / -435 -160 / -160 Physical Exam Const: COMMON NORMALS: no acute distress and patient oriented x3 Resp: COMMON NORMALS: normal respiratory effort and clear to auscultation bilaterally AUSCULTATION: clear to auscultation bilaterally Cardio: COMMON NORMALS: regular rate, regular rhythm and S2 normal heart sound present RATE: regular rate RHYTHM: regular rhythm HEART SOUNDS: S2 normal heart sound present OTHER: No lower extremity edema GI: COMMON NORMALS: Normal to inspection, nondistended, normoactive bowel sounds present, Soft to palpation and non-tender PALPATION: Yes Soft to palpation OTHER: Obese and round Neuro: COMMON NORMALS: patient oriented x3 and no focal motor deficits Urinary Catheter Management^: Mcfadden: Cath Placed During This Visit: yes, but has since been removed by the nurse Reason for Continuing Indwelling Catheter: Decision to DC Catheter Urinary Catheter Date of Insertion: 05/27/20 Urinary Catheter Time of Insertion: 07:00 Date Urinary Catheter Removed: 05/29/20 Time Urinary Catheter Discontinued: 13:00 Data : 05/30/20 05:01 05/30/20 05:01 Micro: Microbiology 05/27/20 15:12 Urine Culture - Final Urine,Clean Catch A&P Assessment and plan (1) Generalized weakness: Status: Acute (2) Hyponatremia: Status: Acute (3) Hypocalcemia: Status: Acute (4) Hypomagnesemia: Status: Acute (5) Alcohol abuse: Status: Acute (6) Acute kidney injury: Status: Acute (7) Hyperkalemia: Status: Acute (8) Urinary retention: Present on admission and likely related to opioid use. Status: Acute (9) Macrocytic anemia: Appears to be chronic. No evidence of iron, B12 or folate deficiency. Status: Acute Additional A&P Information Generalized weakness This most likely secondary to leading a sedentary lifestyle, alcohol abuse, morbid obesity, sleep apnea Hyponatremia, anemia with underlying lumbar radiculopathy I will start him on thiamine and folic acid and cyanocobalamin No active signs of stroke Acute on chronic hyponatremia It is hard to assess his volume status however he has history of alcohol abuse, previously his sodium level has stayed low as low as 116(required hypertonic saline) No acute neurological signs at this visit Avoid normal saline secondary to history of alcohol abuse, with fluid restriction if sodium is correcting 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, check urine and serum sodium level, TSH I will hold SSRI for now Otoole is denying recent diarrhea or vomiting His hydrochlorothiazide has been discontinued at home he is taking Lasix Hypomagnesemia and hypocalcemia Replenish Check PTH level No arrhythmia noted Chronic macrocytic anemia We do not have recent hemoglobin level, however in 2018, hemoglobin was 13 Patient is not endorsing any black tarry stool, hematemesis, hematochezia, I do suspect alcohol induced anemia to be one of the factors, Initiate B12 folic acid level DVT prophylaxis: Lovenox 30 twice daily considering high BMI, hemoglobin level is dropping currently stop anticoagulant agents Regular diet to allow liberal salt intake Full code PLAN: Continue current monitoring and treatment. We have discussed that patient will require colonoscopy and possibly EGD on outpatient basis and he can discuss this with Dr. Garner during his next appointment. Patient currently very weak and I do not see how we can go home like this. We have discussed regarding group home facility for rehabilitation and he agreed. Attestations Medical Necessity Statement*: Morbidly obese patient with acute kidney injury which currently resolved but patient is significantly weak and not safe to be dismissed home requiring further hospitalization until group home facility is arranged. Coding Level of Care Code Acute Log Data Technician for Chg Fwd Diagnoses Generalized weakness R53.1 Hyponatremia E87.1 Hypocalcemia E83.51 Hypomagnesemia E83.42 Alcohol abuse F10.10 Acute kidney injury N17.9 Hyperkalemia E87.5 Urinary retention R33.9 Macrocytic anemia D53.9
--- NOTE | 2020-05-30 12:31 | PC.SOCIAL ---
Pg 2 IMM Explained to pt Pg 2 IMM. No questions voiced. Provided pt a copy. Signed,dated, & timed a copy for chart.
[2020-05-30 17:34] LABS: Glucose Point of Care 224 mg/dL (70-110)
[2020-05-30 18:54] LABS: Glucose Point of Care 176 mg/dL (70-110)
[2020-05-30 21:19] LABS: Glucose Point of Care 191 mg/dL (70-110)
[2020-05-31] VITALS (13 sets, daily range): BP systolic 136–175; BP diastolic 67–75; PULSE 54–91; RESP 16–24; TEMP 36.3–37.2; O2SAT 95–98
[2020-05-31] MEDS: heparin 5,000 unit/mL INJ 1 mL 5000 UNIT SUBCUT ×3 (00:30→17:33)
[2020-05-31 06:33] LABS: Albumin Level 4.1 g/dL (3.5-5.2); Alkaline Phosphatase 49 IU/L (40-130); Calcium 9.8 mg/dL (8.5-10.5); Carbon Dioxide 25 mmol/L (22-29); Total Bilirubin 0.6 mg/dL (0.15-1.2)
[2020-05-31 07:25] LABS: Glucose Point of Care 180 mg/dL (70-110)
[2020-05-31 07:31] LABS: Basophils % 0.3 %; Eosinophils # 0.1 10^3/uL (0.0-0.8); Eosinophils % 0.8 %; Hematocrit 31.1 % (42.0-52.0); Lymphocytes # 1.7 10^3/uL (0.8-4.8); Lymphocytes % 25.8 %; Mean Corpuscular HGB Conc 32.2 g/dL (30.0-36.0); Mean Corpuscular Hemoglobin 32.8 pg (28.0-34.0); Mean Platelet Volume 10.2 fL (7.4-10.4); Monocytes # 0.6 10^3/uL (0.2-0.9); Monocytes % 8.4 %; Neutrophils % 64.1 %; Nucleated Red Blood Cells % 0 %; Platelet Count 177 10^3/cmm (130-400); Red Blood Count 3.05 10^6/uL (4.1-5.3); White Blood Count 6.6 10^3/uL (4.0-10.0)
[2020-05-31 07:50] LABS: Alanine Aminotransferase 39 U/L (0-41); Anion Gap 17.2 (5-19); Potassium 4.2 mmol/L (3.5-5.1)
[2020-05-31 08:24] LABS: Chloride 99 mmol/L (98-107); Sodium 139 mmol/L (136-145)
[2020-05-31] MEDS: albuterol 8 gm MDI 1 PUFF INHALATION ×2 (08:31→19:30)
[2020-05-31 08:47] LABS: Aspartate Amino Transferase 53 U/L (0-40); Blood Urea Nitrogen 28 mg/dL (8-23); Globulin 2.2 g/dL (1.3-4.6); Glucose 190 mg/dL (65-115); Osmolality Calculated 299 mOsm/kg (285-295); Total Protein 6.3 g/dL (6.6-8.7)
[2020-05-31] MEDS: fluticasone nasal spray 16gm Btl 1 SPRAY NASAL ×2 (09:24→17:33)
[2020-05-31] MEDS: thiamine 100 mg Tablet PO (09:25)
[2020-05-31] MEDS: tamsulosin 0.4 mg Capsule PO (09:25)
[2020-05-31] MEDS: pantoprazole DR 40 mg Tablet PO (09:25)
[2020-05-31] MEDS: folic acid 1 mg Tablet PO (09:25)
[2020-05-31] MEDS: atorvastatin 40 mg Tablet 20 MG PO (09:25)
[2020-05-31] MEDS: cyanocobalamin 1,000 mcg Tablet 500 MCG PO (09:25)
[2020-05-31] MEDS: escitalopram 10 mg Tablet 20 MG PO (09:25)
[2020-05-31] MEDS: HYDROmorphone 1 mg/mL INJ 1 mL 2 MG IVP ×2 (10:09→15:31)
[2020-05-31 11:05] LABS: Glucose Point of Care 210 mg/dL (70-110)
--- NOTE | 2020-05-31 11:22 | P.PN_ITS ---
Subjective Subjective: Interval history: Patient denies any complaints this morning including shortness of breath or chest pain. Appears to be doing better with physical therapy and walked 20 feet. Vitals/I&O/Wt Last Vital Signs Temp 98.4 F 05/31/20 08:00 Pulse 91 05/31/20 08:32 Resp 18 05/31/20 10:09 BP 162/74 05/31/20 08:00 Pulse Ox 96 05/31/20 08:32 05/30/20 05/31/20 05/31/20 22:59 06:59 14:59 Intake Total 360 / 600 300 / 900 Output Total 875 / 1475 720 / 2195 400 / 400 Balance -515 / -875 -420 / -1295 -400 / -400 Physical Exam Const: COMMON NORMALS: no acute distress and patient oriented x3 Resp: COMMON NORMALS: normal respiratory effort and clear to auscultation bilaterally AUSCULTATION: clear to auscultation bilaterally Cardio: COMMON NORMALS: regular rate, regular rhythm and S2 normal heart sound present RATE: regular rate RHYTHM: regular rhythm HEART SOUNDS: S2 normal heart sound present OTHER: No lower extremity edema GI: COMMON NORMALS: Normal to inspection, nondistended, normoactive bowel sounds present, Soft to palpation and non-tender PALPATION: Yes Soft to palpation OTHER: Obese and round Neuro: COMMON NORMALS: patient oriented x3 and no focal motor deficits Urinary Catheter Management^: Mcfadden: Cath Placed During This Visit: yes, but has since been removed by the nurse Reason for Continuing Indwelling Catheter: Decision to DC Catheter Urinary Catheter Date of Insertion: 05/27/20 Urinary Catheter Time of Insertion: 07:00 Date Urinary Catheter Removed: 05/29/20 Time Urinary Catheter Discontinued: 13:00 Data : 05/31/20 07:12 05/31/20 07:12 A&P Assessment and plan (1) Generalized weakness: Status: Acute (2) Hyponatremia: Status: Acute (3) Hypocalcemia: This appears to be a lab error Status: Acute (4) Hypomagnesemia: Status: Acute (5) Alcohol abuse: Status: Acute (6) Acute kidney injury: This appears to be secondary to urinary retention as a major cause Status: Acute (7) Hyperkalemia: Status: Acute (8) Urinary retention: Present on admission and likely related to opioid use. Status: Acute (9) Macrocytic anemia: Appears to be chronic. No evidence of iron, B12 or folate deficiency. Status: Acute Additional A&P Information Generalized weakness This most likely secondary to leading a sedentary lifestyle, alcohol abuse, morbid obesity, sleep apnea Hyponatremia, anemia with underlying lumbar radiculopathy I will start him on thiamine and folic acid and cyanocobalamin No active signs of stroke Acute on chronic hyponatremia It is hard to assess his volume status however he has history of alcohol abuse, previously his sodium level has stayed low as low as 116(required hypertonic saline) No acute neurological signs at this visit Avoid normal saline secondary to history of alcohol abuse, with fluid restriction if sodium is correcting 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, check urine and serum sodium level, TSH I will hold SSRI for now Otoole is denying recent diarrhea or vomiting His hydrochlorothiazide has been discontinued at home he is taking Lasix Hypomagnesemia and hypocalcemia Replenish Check PTH level No arrhythmia noted Chronic macrocytic anemia We do not have recent hemoglobin level, however in 2018, hemoglobin was 13 Patient is not endorsing any black tarry stool, hematemesis, hematochezia, I do suspect alcohol induced anemia to be one of the factors, Initiate B12 folic acid level DVT prophylaxis: Lovenox 30 twice daily considering high BMI, hemoglobin level is dropping currently stop anticoagulant agents Regular diet to allow liberal salt intake Full code PLAN: Continue current monitoring and treatment. Awaiting placement to nursing facility. Attestations Medical Necessity Statement*: Patient with generalized weakness and episode of acute kidney injury requires close inpatient monitoring and treatment till placement to nursing facility is arranged. Time Spent in Patient Care: less than 15 minutes Coding Level of Care Code Acute Physician President for Tabithag Fwd Diagnoses Generalized weakness R53.1 Hyponatremia E87.1 Hypocalcemia E83.51 Hypomagnesemia E83.42 Alcohol abuse F10.10 Acute kidney injury N17.9 Hyperkalemia E87.5 Urinary retention R33.9 Macrocytic anemia D53.9
[2020-05-31 17:23] LABS: Glucose Point of Care 191 mg/dL (70-110)
[2020-05-31] MEDS: HYDROmorphone 1 mg/mL INJ 1 mL IVP (21:07)
[2020-05-31 21:14] LABS: Glucose Point of Care 206 mg/dL (70-110)
[2020-06-01] VITALS (12 sets, daily range): BP systolic 133–175; BP diastolic 65–84; PULSE 56–76; RESP 16–22; TEMP 36.2–37.1; O2SAT 95–97
[2020-06-01] MEDS: HYDROmorphone 1 mg/mL INJ 1 mL IVP ×2 (00:50→05:54)
[2020-06-01] MEDS: heparin 5,000 unit/mL INJ 1 mL 5000 UNIT SUBCUT ×3 (01:23→18:16)
[2020-06-01 05:42] LABS: Basophils % 0.5 %; Eosinophils # 0.1 10^3/uL (0.0-0.8); Eosinophils % 1.4 %; Hematocrit 33.8 % (42.0-52.0); Hemoglobin 10.8 g/dL (11.7-16.6); Lymphocytes # 1.8 10^3/uL (0.8-4.8); Lymphocytes % 27.4 %; Mean Corpuscular Hemoglobin 32.6 pg (28.0-34.0); Mean Corpuscular Volume 102.1 fL (80-94); Mean Platelet Volume 10.5 fL (7.4-10.4); Monocytes # 0.5 10^3/uL (0.2-0.9); Monocytes % 7.7 %; Neutrophils # 4.09 10^3/uL (1.8-7.7); Neutrophils % 62.5 %; Nucleated Red Blood Cells % 0.5 %; Platelet Count 179 10^3/cmm (130-400); Red Blood Count 3.31 10^6/uL (4.1-5.3); Red Cell Distribution Width 13.8 % (12.1-15.1); White Blood Count 6.5 10^3/uL (4.0-10.0)
[2020-06-01 06:26] LABS: Alanine Aminotransferase 41 U/L (0-41); Albumin Level 4.3 g/dL (3.5-5.2); Alkaline Phosphatase 55 IU/L (40-130); Aspartate Amino Transferase 46 U/L (0-40); Blood Urea Nitrogen 24 mg/dL (8-23); Carbon Dioxide 27 mmol/L (22-29); Chloride 97 mmol/L (98-107); Globulin 2.6 g/dL (1.3-4.6); Glucose 173 mg/dL (65-115); Osmolality Calculated 288 mOsm/kg (285-295); Sodium 135 mmol/L (136-145); Total Bilirubin 0.9 mg/dL (0.15-1.2); Total Protein 6.9 g/dL (6.6-8.7)
[2020-06-01 06:47] LABS: Glucose Point of Care 179 mg/dL (70-110)
[2020-06-01 06:51] LABS: Anion Gap 15.3 (5-19); Potassium 4.3 mmol/L (3.5-5.1)
[2020-06-01] MEDS: pantoprazole DR 40 mg Tablet PO (09:07)
[2020-06-01] MEDS: atorvastatin 40 mg Tablet 20 MG PO (09:07)
[2020-06-01] MEDS: thiamine 100 mg Tablet PO (09:07)
[2020-06-01] MEDS: tamsulosin 0.4 mg Capsule PO (09:07)
[2020-06-01] MEDS: folic acid 1 mg Tablet PO (09:07)
[2020-06-01] MEDS: amlodipine 5 mg Tablet PO (09:07)
[2020-06-01] MEDS: escitalopram 10 mg Tablet 20 MG PO (09:07)
[2020-06-01] MEDS: cyanocobalamin 1,000 mcg Tablet 500 MCG PO (09:07)
[2020-06-01] MEDS: fluticasone nasal spray 16gm Btl 1 SPRAY NASAL ×2 (09:08→18:16)
[2020-06-01] MEDS: HYDROcodone-acetaminophen 5-325 mg Tablet 1 TAB PO ×3 (10:04→20:09)
[2020-06-01 10:41] LABS: Glucose Point of Care 179 mg/dL (70-110)
--- NOTE | 2020-06-01 11:36 | PM.PN ---
Subjective Subjective: Interval history: Patient continues to have back pain but denies shortness of breath or chest pain. Further improving with physical therapy. Hemoglobin and platelets are stable. I have failed to mention previously that patient reports drinking up to 6 beers 2-3 times weekly. Reports that he never gets drunk and denies any previous history of alcohol withdrawal. Vitals/I&O/Wt Last Vital Signs Temp 97.6 F 06/01/20 08:00 Pulse 76 06/01/20 09:58 Resp 16 06/01/20 09:58 BP 158/79 06/01/20 08:00 Pulse Ox 96 06/01/20 09:58 05/31/20 06/01/20 06/01/20 22:59 06:59 14:59 Intake Total 420 / 660 240 / 240 Output Total 845 / 1495 240 / 1735 275 / 275 Balance -425 / -835 -240 / -1075 -35 / -35 Physical Exam Const: COMMON NORMALS: no acute distress and patient oriented x3 Resp: COMMON NORMALS: normal respiratory effort and clear to auscultation bilaterally AUSCULTATION: clear to auscultation bilaterally Cardio: COMMON NORMALS: regular rate, regular rhythm and S2 normal heart sound present RATE: regular rate RHYTHM: regular rhythm HEART SOUNDS: S2 normal heart sound present OTHER: No lower extremity edema GI: COMMON NORMALS: Normal to inspection, nondistended, normoactive bowel sounds present, Soft to palpation and non-tender PALPATION: Yes Soft to palpation OTHER: Obese and round Neuro: COMMON NORMALS: patient oriented x3 and no focal motor deficits Urinary Catheter Management^: Mcfadden: Cath Placed During This Visit: yes, but has since been removed by the nurse Reason for Continuing Indwelling Catheter: Decision to DC Catheter Urinary Catheter Date of Insertion: 05/27/20 Urinary Catheter Time of Insertion: 07:00 Date Urinary Catheter Removed: 05/29/20 Time Urinary Catheter Discontinued: 13:00 Data : 06/01/20 04:59 06/01/20 04:59 A&P Assessment and plan (1) Generalized weakness: Status: Acute (2) Hyponatremia: Status: Acute (3) Hypocalcemia: This appears to be a lab error Status: Acute (4) Hypomagnesemia: Status: Acute (5) Alcohol abuse: Status: Acute (6) Acute kidney injury: This appears to be secondary to urinary retention as a major cause Status: Acute (7) Hyperkalemia: Status: Acute (8) Urinary retention: Present on admission and likely related to opioid use. Status: Acute (9) Macrocytic anemia: Appears to be chronic. No evidence of iron, B12 or folate deficiency. Status: Acute Additional A&P Information Generalized weakness This most likely secondary to leading a sedentary lifestyle, alcohol abuse, morbid obesity, sleep apnea Hyponatremia, anemia with underlying lumbar radiculopathy I will start him on thiamine and folic acid and cyanocobalamin No active signs of stroke Acute on chronic hyponatremia It is hard to assess his volume status however he has history of alcohol abuse, previously his sodium level has stayed low as low as 116(required hypertonic saline) No acute neurological signs at this visit Avoid normal saline secondary to history of alcohol abuse, with fluid restriction if sodium is correcting 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, check urine and serum sodium level, TSH I will hold SSRI for now Otoole is denying recent diarrhea or vomiting His hydrochlorothiazide has been discontinued at home he is taking Lasix Hypomagnesemia and hypocalcemia Replenish Check PTH level No arrhythmia noted Chronic macrocytic anemia We do not have recent hemoglobin level, however in 2018, hemoglobin was 13 Patient is not endorsing any black tarry stool, hematemesis, hematochezia, I do suspect alcohol induced anemia to be one of the factors, Initiate B12 folic acid level DVT prophylaxis: Lovenox 30 twice daily considering high BMI, hemoglobin level is dropping currently stop anticoagulant agents Regular diet to allow liberal salt intake Full code PLAN: Continue current monitoring and treatment. Again I had extensive discussion with patient regarding importance of weight loss. Patient voiced understanding. Awaiting placement to nursing facility. Attestations Medical Necessity Statement*: Patient was generalized weakness requires close inpatient monitoring and treatment till placement to nursing facility is arranged. Time Spent in Patient Care: 16 - 35 minutes Coding Level of Care Code Acute Salon Shampoo Assistant for Siobhan Fwd Exam Detailed Diagnoses Generalized weakness R53.1 Hyponatremia E87.1 Hypocalcemia E83.51 Hypomagnesemia E83.42 Alcohol abuse F10.10 Acute kidney injury N17.9 Hyperkalemia E87.5 Urinary retention R33.9 Macrocytic anemia D53.9
[2020-06-01] MEDS: albuterol 8 gm MDI 1 PUFF INHALATION (16:34)
[2020-06-01 17:19] LABS: Glucose Point of Care 171 mg/dL (70-110)
[2020-06-01 20:24] LABS: Glucose Point of Care 191 mg/dL (70-110)
[2020-06-02] VITALS (9 sets, daily range): BP systolic 129–168; BP diastolic 57–81; PULSE 57–68; RESP 17–22; TEMP 36.3–37.1; O2SAT 94–98
[2020-06-02] MEDS: heparin 5,000 unit/mL INJ 1 mL 5000 UNIT SUBCUT ×3 (02:11→17:46)
[2020-06-02] MEDS: HYDROcodone-acetaminophen 5-325 mg Tablet 1 TAB PO ×5 (06:09→22:01)
[2020-06-02 07:09] LABS: Glucose Point of Care 186 mg/dL (70-110)
[2020-06-02] MEDS: fluticasone nasal spray 16gm Btl 1 SPRAY NASAL ×2 (08:57→17:47)
[2020-06-02] MEDS: tamsulosin 0.4 mg Capsule PO (08:58)
[2020-06-02] MEDS: escitalopram 10 mg Tablet 20 MG PO (08:58)
[2020-06-02] MEDS: atorvastatin 40 mg Tablet 20 MG PO (08:58)
[2020-06-02] MEDS: folic acid 1 mg Tablet PO (08:58)
[2020-06-02] MEDS: thiamine 100 mg Tablet PO (08:58)
[2020-06-02] MEDS: cyanocobalamin 1,000 mcg Tablet 500 MCG PO (08:58)
[2020-06-02] MEDS: pantoprazole DR 40 mg Tablet PO (08:59)
[2020-06-02] MEDS: amlodipine 5 mg Tablet PO (08:59)
[2020-06-02 10:55] LABS: Glucose Point of Care 178 mg/dL (70-110)
--- NOTE | 2020-06-02 14:05 | P.PN_ITS ---
Subjective Subjective: Interval history: Patient denies shortness of breath or chest pain this morning. Reports that he continues to have at times severe pain and reports that he wants to get back to his previous [place] dose. We had extensive discussion regarding pain medications being the cause of his urinary retention and acute kidney injury and he voiced understanding. We have discussed that we will unlikely be able to completely eliminate his pain but decreasing it to level where patient can tolerate activity would be a goal at this point until long-term solution by losing weight and surgery can take place. He is planning to discuss with his sister to see if it is okay for him to go home instead of nursing facility. Vitals/I&O/Wt Last Vital Signs Temp 97.6 F 06/02/20 11:10 Pulse 68 06/02/20 11:10 Resp 19 H 06/02/20 11:10 BP 168/76 06/02/20 11:10 Pulse Ox 96 06/02/20 11:10 06/01/20 06/02/20 06/02/20 22:59 06:59 14:59 Intake Total 0 / 240 180 / 420 100 / 100 Output Total 400 / 675 1615 / 2290 300 / 300 Balance -400 / -435 -1435 / -1870 -200 / -200 Physical Exam Const: COMMON NORMALS: no acute distress and patient oriented x3 Resp: COMMON NORMALS: normal respiratory effort and clear to auscultation bilaterally AUSCULTATION: clear to auscultation bilaterally Cardio: COMMON NORMALS: regular rate, regular rhythm and S2 normal heart sound present RATE: regular rate RHYTHM: regular rhythm HEART SOUNDS: S2 normal heart sound present OTHER: No lower extremity edema GI: COMMON NORMALS: Normal to inspection, nondistended, normoactive bowel sounds present, Soft to palpation and non-tender PALPATION: Yes Soft to palpation OTHER: Obese and round Neuro: COMMON NORMALS: patient oriented x3 and no focal motor deficits Urinary Catheter Management^: Mcfadden: Cath Placed During This Visit: yes, but has since been removed by the nurse Reason for Continuing Indwelling Catheter: Decision to DC Catheter Urinary Catheter Date of Insertion: 05/27/20 Urinary Catheter Time of Insertion: 07:00 Date Urinary Catheter Removed: 05/29/20 Time Urinary Catheter Discontinued: 13:00 Data : 06/01/20 04:59 11/21/20 04:59 A&P Assessment and plan (1) Generalized weakness: Status: Acute (2) Hyponatremia: Status: Acute (3) Hypocalcemia: This appears to be a lab error Status: Acute (4) Hypomagnesemia: Status: Acute (5) Alcohol abuse: Status: Acute (6) Acute kidney injury: This appears to be secondary to urinary retention as a major cause Status: Acute (7) Hyperkalemia: Status: Acute (8) Urinary retention: Present on admission and likely related to opioid use. Status: Acute (9) Macrocytic anemia: Appears to be chronic. No evidence of iron, B12 or folate deficiency. Status: Acute (10) Chronic back pain: Status: Acute (11) Morbid obesity with BMI of 50.0-59.9, adult: Status: Acute (12) Obstructive sleep apnea: Status: Acute Additional A&P Information Generalized weakness This most likely secondary to leading a sedentary lifestyle, alcohol abuse, morbid obesity, sleep apnea Hyponatremia, anemia with underlying lumbar radiculopathy I will start him on thiamine and folic acid and cyanocobalamin No active signs of stroke Acute on chronic hyponatremia It is hard to assess his volume status however he has history of alcohol abuse, previously his sodium level has stayed low as low as 116(required hypertonic saline) No acute neurological signs at this visit Avoid normal saline secondary to history of alcohol abuse, with fluid restriction if sodium is correcting 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, check urine and serum sodium level, TSH I will hold SSRI for now Otoole is denying recent diarrhea or vomiting His hydrochlorothiazide has been discontinued at home he is taking Lasix Hypomagnesemia and hypocalcemia Replenish Check PTH level No arrhythmia noted Chronic macrocytic anemia We do not have recent hemoglobin level, however in 2018, hemoglobin was 13 Patient is not endorsing any black tarry stool, hematemesis, hematochezia, I do suspect alcohol induced anemia to be one of the factors, Initiate B12 folic acid level DVT prophylaxis: Lovenox 30 twice daily considering high BMI, hemoglobin level is dropping currently stop anticoagulant agents Regular diet to allow liberal salt intake Full code PLAN: Continue current monitoring and treatment. Awaiting placement to nursing facility versus home if patient's endurance and activity improves and okay by patient's caregiver. Attestations Medical Necessity Statement*: Patient with morbid obesity and chronic back p ain as well as generalized weakness requires close inpatient monitoring and treatment till deemed safe for discharge. Time Spent in Patient Care: 16 - 35 minutes Coding Level of Care Code Acute Stereo Equipment Salesperson for Chg Fwd Diagnoses Generalized weakness R53.1 Hyponatremia E87.1 Hypocalcemia E83.51 Hypomagnesemia E83.42 Alcohol abuse F10.10 Acute kidney injury N17.9 Hyperkalemia E87.5 Urinary retention R33.9 Macrocytic anemia D53.9 Chronic back pain M54.9; G89.29 Morbid obesity with BMI of 50.0-59.9, adult E66.01; Z68.43 Obstructive sleep apnea G47.33
[2020-06-02 17:17] LABS: Glucose Point of Care 181 mg/dL (70-110)
[2020-06-02 20:20] LABS: Glucose Point of Care 168 mg/dL (70-110)
[2020-06-03] VITALS (8 sets, daily range): BP systolic 123–171; BP diastolic 66–92; PULSE 57–77; RESP 17–18; TEMP 36.3–37.1; O2SAT 94–98
[2020-06-03] MEDS: HYDROcodone-acetaminophen 5-325 mg Tablet 1 TAB PO ×4 (02:00→17:40)
[2020-06-03] MEDS: heparin 5,000 unit/mL INJ 1 mL 5000 UNIT SUBCUT ×2 (02:00→09:12)
[2020-06-03 05:51] LABS: Basophils % 0.4 %; Eosinophils # 0.2 10^3/uL (0.0-0.8); Eosinophils % 3.1 %; Hematocrit 33.4 % (42.0-52.0); Hemoglobin 10.6 g/dL (11.7-16.6); Lymphocytes % 27.4 %; Mean Corpuscular HGB Conc 31.7 g/dL (30.0-36.0); Mean Corpuscular Hemoglobin 32.7 pg (28.0-34.0); Mean Corpuscular Volume 103.1 fL (80-94); Mean Platelet Volume 10.7 fL (7.4-10.4); Monocytes # 0.5 10^3/uL (0.2-0.9); Monocytes % 7.6 %; Neutrophils # 4.36 10^3/uL (1.8-7.7); Neutrophils % 60.9 %; Nucleated Red Blood Cells % 0 %; Platelet Count 180 10^3/cmm (130-400); Red Blood Count 3.24 10^6/uL (4.1-5.3); Red Cell Distribution Width 13.5 % (12.1-15.1); White Blood Count 7.2 10^3/uL (4.0-10.0)
[2020-06-03 06:19] LABS: Alanine Aminotransferase 35 U/L (0-41); Albumin Level 4.3 g/dL (3.5-5.2); Alkaline Phosphatase 56 IU/L (40-130); Aspartate Amino Transferase 30 U/L (0-40); Blood Urea Nitrogen 15 mg/dL (8-23); Calcium 10.2 mg/dL (8.5-10.5); Carbon Dioxide 24 mmol/L (22-29); Chloride 100 mmol/L (98-107); Globulin 2.7 g/dL (1.3-4.6); Glucose 177 mg/dL (65-115); Osmolality Calculated 287 mOsm/kg (285-295); Sodium 136 mmol/L (136-145); Total Bilirubin 1.7 mg/dL (0.15-1.2)
[2020-06-03 06:29] LABS: Anion Gap 16.3 (5-19); Potassium 4.3 mmol/L (3.5-5.1)
[2020-06-03 06:55] LABS: Glucose Point of Care 174 mg/dL (70-110)
[2020-06-03] MEDS: albuterol 8 gm MDI 1 PUFF INHALATION (08:05)
[2020-06-03] MEDS: atorvastatin 40 mg Tablet 20 MG PO (09:10)
[2020-06-03] MEDS: thiamine 100 mg Tablet PO (09:10)
[2020-06-03] MEDS: escitalopram 10 mg Tablet 20 MG PO (09:10)
[2020-06-03] MEDS: cyanocobalamin 1,000 mcg Tablet 500 MCG PO (09:11)
[2020-06-03] MEDS: pantoprazole DR 40 mg Tablet PO (09:12)
[2020-06-03] MEDS: folic acid 1 mg Tablet PO (09:12)
[2020-06-03] MEDS: amlodipine 5 mg Tablet PO (09:12)
[2020-06-03] MEDS: tamsulosin 0.4 mg Capsule PO (09:12)
--- NOTE | 2020-06-03 09:30 | PC.SOCIAL ---
IMM Updated Page 2 of IMM updated and given to patient. Initialed, dated, and timed and placed back in chart.
[2020-06-03] MEDS: fluticasone nasal spray 16gm Btl 1 SPRAY NASAL (09:54)
--- NOTE | 2020-06-03 13:27 | P.DS_ITS ---
Discharge Providers Date of Admission: 05/27/20 14:43 Date of Discharge: June 03, 2020 Attending Provider at Admission: Shelbie Cates MD Attending Provider at Discharge: Jerome Chester MD Primary Care Provider: Corrina Thakkar-Kay Diagnoses at Discharge Discharge Diagnosis (1) Generalized weakness: Status: Acute (2) Hyponatremia: Status: Acute (3) Hypocalcemia: Status: Acute (4) Hypomagnesemia: Status: Acute (5) Alcohol abuse: Status: Acute (6) Acute kidney injury: Status: Acute (7) Hyperkalemia: Status: Acute (8) Urinary retention: Status: Acute (9) Macrocytic anemia: Status: Acute (10) Chronic back pain: Status: Acute (11) Morbid obesity with BMI of 50.0-59.9, adult: Status: Acute (12) Obstructive sleep apnea: Status: Acute Reason for Visit Reason for Visit: FALL Hospital Course Hospital Course Enzo is a 74-year-old white male who presented to the hospital on May 26. He was initially admitted for weakness, hyponatremia, alcohol use, and acute kidney injury. Multiple medications were stopped secondary to acute kidney injury. Nephrology was consulted. During hospital service stay severe hyperkalemia developed, as well as urinary retention. Catheter was placed. Dialysis catheter was also placed, and the patient underwent dialysis May 27. Following this his renal function steadily improved. By June 03 his weakness had improved to the point where he could be discharged home with home health and physical therapy. At that time his potassium was normal, creatinine. Other studies done while in the hospital consisted of a renal ultrasound, which showed no evidence of obstruction. Multiple medication changes occurred while in the hospital to try to reduce the risk of recurrent hyperkalemia, hyponatremia. Narcotic dosage was also decreased. Please see changes below. Physical Exam Narrative: EXAM NARRATIVE: General exam no apparent distress Cardiovascular regular rate and rhythm without murmur Lungs clear Abdomen is soft, obese Extremities no cyanosis clubbing or edema Urinary Catheter Management^: Mcfadden: Cath Placed During This Visit: yes, but has since been removed by the nurse Reason for Continuing Indwelling Catheter: Decision to DC Catheter Urinary Catheter Date of Insertion: 05/27/20 Urinary Catheter Time of Insertion: 07:00 Date Urinary Catheter Removed: 05/29/20 Time Urinary Catheter Discontinued: 13:00 Discharge Data Data Completed and Pending: Completed Studies During Hospitalization Category Date Time Status CT lumbar spine w o con* [id number] Urgen t Cat Scan 05/26/20 20:32 Completed XR chest 1V [place] [id number] Urgent Exams 05/26/20 20:32 Completed US renal BI* [id number] Routine Ultrasound 05/27/20 06:23 Completed Pending at discharge Category Date Time Status Immunochemical Fe cary OCB Routine Lab 05/30/20 07:17 Uncollected Labs from last 24 hours 06/03/20 06/03/20 06/03/20 06:27 04:24 04:24 WBC 7.2 RBC 3.24 L Hgb 10.6 L Hct 33.4 L MCV 103.1 H MCH 32.7 MCHC 31.7 RDW 13.5 Plt Count 180 MPV 10.7 H Neut % (Auto) 60.9 Lymph % (Auto) 27.4 [place] % (Auto) 7.6 Eos % (Auto) 3.1 Baso % (Auto) 0.4 Neut # (Auto) 4.36 Lymph # (Auto) 2.0 [place] # (Auto) 0.5 Eos # (Auto) 0.2 Baso # (Auto) 0.0 Nucleated RBC % (a uto) 0 Nucleated RBCs # 0.0 Sodium 136 Potassium 4.3 Chloride 100 Carbon Dioxide 24 Anion Gap 16.3 BUN 15 Creatinine 0.9 GFR Calculation Not Reportable Glucose 177 H POC Glucose 174 Calculated Osmolal ity 287 Calcium 10.2 Total Bilirubin 1.7 H AST 30 ALT 35 Alkaline Phosphata se 56 Total Protein 7.0 Albumin 4.3 Globulin 2.7 06/02/20 06/02/20 20:16 17:01 WBC RBC Hgb Hct MCV MCH MCHC RDW Plt Count MPV Neut % (Auto) Lymph % (Auto) [place] % (Auto) Eos % (Auto) Baso % (Auto) Neut # (Auto) Lymph # (Auto) [place] # (Auto) Eos # (Auto) Baso # (Auto) Nucleated RBC % (a uto) Nucleated RBCs # Sodium Potassium Chloride Carbon Dioxide Anion Gap BUN Creatinine GFR Calculation Glucose POC Glucose 168 181 Calculated Osmolal ity Calcium Total Bilirubin AST ALT Alkaline Phosphata se Total Protein Albumin Globulin Vitals: Last Vital Signs Temp 97.9 F 06/03/20 12:00 Pulse 61 06/03/20 12:00 Resp 18 06/03/20 12:00 BP 138/92 06/03/20 12:00 Pulse Ox 98 06/03/20 12:00 Discharge Plan Discharge Patient Disposition: Home Health Service Condition: Stable Prescriptions: New amlodipine 5 mg Tablet 5 mg PO DAILY Qty: 30 RF: 0 Continued atorvastatin 20 mg tablet 20 mg PO DAILY RF: 0 escitalopram oxalate 10 mg tablet 20 mg PO DAILY RF: 0 glipizide 5 mg tablet 5 mg PO DAILY RF: 0 mirtazapine 30 mg tablet 30 mg PO BEDTIME RF: 0 pantoprazole 40 mg tablet,delayed release (DR/EC) 40 mg PO DAILY RF: 0 diphenhydramine-acetaminophen [Tylenol PM Extra Strength] 25-500 mg tablet 2 tab PO BEDTIME PRN (Reason: Sleep) RF: 0 furosemide 20 mg tablet 40 mg PO DAILY PRN (Reason: Edema) RF: 0 gabapentin 600 mg Tablet See Rx Instructions .ROUTE .COMPLEX RF: 0 albuterol sulfate 2.5 mg /3 mL (0.083 %) Solution For Nebulization 2.5 mg INHALATION QID PRN (Reason: Shortness Of Breath) RF: 0 ergocalciferol (vitamin D2) 1,250 mcg (50,000 unit) capsule See Rx Instructions .ROUTE .COMPLEX RF: 0 albuterol sulfate 90 mcg/actuation Hfa Aerosol Inhaler 1 inh INHALATION QID PRN (Reason: Shortness Of Breath) RF: 0 Humalog KwikPen Insulin 100 unit/mL insulin pen 8 unit SUBCUT BID RF: 0 Symbicort 160-4.5 mcg/actuation HFA aerosol inhaler 1 puff INHALATION BID RF: 0 Toujeo SoloStar U-300 Insulin 300 unit/mL (1.5 mL) insulin pen 30 unit SUBCUT DAILY RF: 0 Ozempic 0.25 mg or 0.5 mg(2 mg/1.5 mL) pen injector 0.25 mg SUBCUT Q7D RF: 0 Changed hydrocodone-acetaminophen 10-325 mg tablet 1 tab PO Q6H PRN (Reason: Pain) Qty: 0 RF: 0 Discontinued hydrochlorothiazide 25 mg tablet 25 mg PO DAILY RF: 0 lisinopril 10 mg tablet 10 mg PO DAILY RF: 0 spironolactone 100 mg Tablet 100 mg PO DAILY RF: 0 Discharge Orders: Discharge Order (Routine); Ordered 06/03/20 Ordered By: Jerome Chester Referrals: [facility] [Outside] Corrina Thakkar, [employer] [Primary Care Provider] - 4-7 days (CBC and BMP on follow- up) Discharge Diet: Diabetic Discharge Activity: Increase activity as tolerated Activity Restrictions/Additional Instructions: Keep follow-up Do not drink any alcohol Take all medicine as prescribed Discharge Attestations Time Spent in Discharge Care*: greater than 30 min Quality Metrics Clinical Quality Measures During this hospital stay, did patient experience: None Coding Level of Care Code Acute Fraud Examiner for Chg Fwd Diagnoses Generalized weakness R53.1 Hyponatremia E87.1 Hypocalcemia E83.51 Hypomagnesemia E83.42 Alcohol abuse F10.10 Acute kidney injury N17.9 Hyperkalemia E87.5 Urinary retention R33.9 Macrocytic anemia D53.9 Chronic back pain M54.9; G89.29 Morbid obesity with BMI of 50.0-59.9, adult E66.01; Z68.43 Obstructive sleep apnea G47.33
--- NOTE | 2020-06-03 14:08 | PC.NURSE ---
Discharge instructions given to patient and patient verbalized understanding of instructions. patient IV removed. IV catheter intact and site covered with 2x2 and coban. patient waiting on ride to arrive. patient is dressed and ready.
[2020-06-03 17:24] LABS: Glucose Point of Care 177 mg/dL (70-110)
--- NOTE | 2020-06-03 18:00 | PC.NURSE ---
Reviewed accu check machine. Patients CBG was 178 around 1100. Patient was given 2 units per sliding scale documentation on SEP.
--- NOTE | 2020-06-03 18:30 | PC.NURSE ---
Patient left at this time with [facility] transportation, via wheelchair. Patient in stable condition.
== END 2020-06-03 18:31 | disposition home health service (06) | DRG 683 ==
LOC: ER 20:24 → CSU 05-27 00:47 → ICU 05-27 12:04 → MEDSURG 05-29 15:23
PROVIDERS: Internal Medicine; Internal Medicine Nephrology; Admitting Provider Internal Medicine; Emergency Provider Emergency Medicine; PCP Nurse Practitioner Family; Visit Provider Internal Medicine
DX: N17.9 Acute kidney failure, unspecified (principal); E87.1 Hypo-osmolality and hyponatremia; Z68.43 Body mass index [BMI] 50.0-59.9, adult; E83.51 Hypocalcemia; E87.5 Hyperkalemia; F10.10 Alcohol abuse, uncomplicated; E83.42 Hypomagnesemia; D53.9 Nutritional anemia, unspecified; G89.29 Other chronic pain; M54.9 Dorsalgia, unspecified; E66.01 Morbid (severe) obesity due to excess calories; G47.33 Obstructive sleep apnea (adult) (pediatric); R33.9 Retention of urine, unspecified; E11.9 Type 2 diabetes mellitus without complications; K21.9 Gastro-esophageal reflux disease without esophagitis; F32.9 Major depressive disorder, single episode, unspecified; Z96.653 Presence of artificial knee joint, bilateral; Z87.891 Personal history of nicotine dependence
CPT/HCPCS: 12345; 36415; 36416; 51702; 71045; 72131; 76770; 80048; 80053; 80307; 81001; 82310; 82330; 82436; 82550; 82607; 82728; 82746; 82962; 83540; 83550; 83735; 83880; 83930; 83935; 83970; 84100; 84133; 84156; 84295; 84300; 84443; 85025; 86140; 86706; 86803; 87086; 87340; 90935; 94640; 94660; 96372; 96375; 97110; 97116; 97161; 97530; 99283; G0378; J0610; J1170; J1642; J1644; J1650; J1815; J1940; J2270; J2405; J3475; J3535; J7030; J7131; J7611; J8540; Q3014

== ENCOUNTER → 2020-06-18 16:43 | Outpatient (BNVA) | payer MEDICARE, MEDICAID, SELFPAY | PROVIDERS: PCP Nurse Practitioner Family; Visit Provider Internal Medicine Cardiovascular Disease | DX: I50.33 Acute on chronic diastolic (congestive) heart failure (principal); I50.31 Acute diastolic (congestive) heart failure | CPT/HCPCS: 80048; 83880 ==

== ENCOUNTER 2020-06-21 11:10 | Outpatient (CLI) | payer MEDICARE, MEDICAID, SELFPAY ==
[2020-06-21 12:01] LABS: Anion Gap 19.1 (5-19); Blood Urea Nitrogen 14 mg/dL (8-23); Carbon Dioxide 26 mmol/L (22-29); Chloride 98 mmol/L (98-107); Glucose 181 mg/dL (65-115); Osmolality Calculated 291 mOsm/kg (285-295); Potassium 5.1 mmol/L (3.5-5.1); Sodium 138 mmol/L (136-145)
== END 2020-06-21 11:11 | disposition home or self-care (01) ==
LOC: LAB 11:12
PROVIDERS: PCP Nurse Practitioner Family; Visit Provider Internal Medicine Cardiovascular Disease
DX: E78.5 Hyperlipidemia, unspecified (principal)
CPT/HCPCS: 80048

== ENCOUNTER → 2020-06-24 09:11 | Outpatient (BNVA) | payer MEDICARE, MEDICAID, SELFPAY | PROVIDERS: PCP Nurse Practitioner Family; Referring Provider Family Medicine; Visit Provider Anesthesiology Pain Medicine | DX: G89.29 Other chronic pain (principal); M51.16 Intervertebral disc disorders with radiculopathy, lumbar region; M51.17 Intervertebral disc disorders with radiculopathy, lumbosacral region; M48.062 Spinal stenosis, lumbar region with neurogenic claudication; M54.9 Dorsalgia, unspecified; Z79.891 Long term (current) use of opiate analgesic | CPT/HCPCS: 99205 ==

== ENCOUNTER → 2020-08-06 10:28 | Outpatient (BNVA) | payer MEDICARE, MEDICAID, SELFPAY | PROVIDERS: PCP Nurse Practitioner Family; Referring Provider Family Medicine; Visit Provider Orthopaedic Surgery | DX: G89.29 Other chronic pain (principal); M54.9 Dorsalgia, unspecified | CPT/HCPCS: 72114 ==

== ENCOUNTER 2020-11-28 16:53 | Emergency (ER) | payer MEDICARE, MEDICAID, SELFPAY ==
[2020-11-28] VITALS (8 sets, daily range): BP systolic 107–193; BP diastolic 58–93; PULSE 69–82; RESP 17–22; TEMP 36.9; O2SAT 92–95
--- NOTE | 2020-11-28 17:18 | XRR_ITS ---
PROCEDURE INFORMATION: Exam: XR Chest Exam date and time: 11/28/2020 5:23 PM Age: 75 years old Clinical indication: Shortness of breath; Additional info: Reduced breath sounds TECHNIQUE: Imaging protocol: XR of the chest. Views: 1 view. COMPARISON: CR XR chest 1V portable [id number] 05/26/2020 8:44 PM FINDINGS: Lungs: Hazy opacity in the lung bases is most likely related to under penetration. The lungs are otherwise clear. Pleural spaces: Unremarkable. No pleural effusion. No pneumothorax. Heart/Mediastinum: Stable borderline cardiomegaly. Bones/joints: C-spine hardware. Resection of the distal left clavicle. XR/XR chest 1V portable [id number] IMPRESSION: 1. No acute findings.
--- NOTE | 2020-11-28 17:22 | ECG_ITS ---
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 Measurements Intervals [place] Rate: 69 P: 51 WA: 243 QRS: -4 QRSD: 106 T: 38 QT: 394 QTc: 424 Interpretive Statements SINUS RHYTHM WITH FIRST DEGREE AV BLOCK LOW QRS VOLTAGE IN PRECORDIAL LEADS [QRS DEFLECTION < 1.0 mV IN CHEST LEADS] PATTERN CONSISTENT WITH PULMONARY DISEASE Compared to ECG 03/01/2018 11:02:31 Low QRS voltage now present Indeterminate axis no longer present Intraventricular conduction delay no longer present Electronically Signed On 11-28-2020 23:50:01 CDT by Lina Hong M.D. [id number]
[2020-11-28 17:31] LABS: Basophils % 0.6 %; Eosinophils # 0.2 10^3/uL (0.0-0.8); Eosinophils % 2.4 %; Hematocrit 40.2 % (42.0-52.0); Hemoglobin 12.9 g/dL (11.7-16.6); Lymphocytes # 2.4 10^3/uL (0.8-4.8); Lymphocytes % 34.9 %; Mean Corpuscular HGB Conc 32.1 g/dL (30.0-36.0); Mean Corpuscular Hemoglobin 32.7 pg (28.0-34.0); Mean Platelet Volume 11.5 fL (7.4-10.4); Monocytes # 0.6 10^3/uL (0.2-0.9); Monocytes % 9.1 %; Neutrophils # 3.55 10^3/uL (1.8-7.7); Neutrophils % 52.7 %; Nucleated Red Blood Cells % 0 %; Platelet Count 221 10^3/cmm (130-400); Red Blood Count 3.94 10^6/uL (4.1-5.3); Red Cell Distribution Width 12.2 % (12.1-15.1); White Blood Count 6.7 10^3/uL (4.0-10.0)
[2020-11-28] MEDS: FUROsemide 10 mg/mL SDV 4mL 40 MG IVP (17:51)
[2020-11-28 18:12] LABS: Troponin(5th) Baseline 43 ng/L (0-15)
[2020-11-28 18:19] LABS: Alanine Aminotransferase 35 U/L (0-41); Albumin Level 4.5 g/dL (3.5-5.2); Alkaline Phosphatase 61 IU/L (40-130); Anion Gap 20.6 (5-19); Aspartate Amino Transferase 61 U/L (0-40); Blood Urea Nitrogen 21 mg/dL (8-23); Calcium 9.2 mg/dL (8.5-10.5); Carbon Dioxide 26 mmol/L (22-29); Chloride 96 mmol/L (98-107); Globulin 2.7 g/dL (1.3-4.6); Glucose 237 mg/dL (65-115); NT Pro B Type Natriuretic Pept 130 pg/mL (0-125); Osmolality Calculated 295 mOsm/kg (285-295); Potassium 5.6 mmol/L (3.5-5.1); Sodium 137 mmol/L (136-145); Total Bilirubin 0.7 mg/dL (0.15-1.2); Total Protein 7.2 g/dL (6.6-8.7)
[2020-11-28 18:29] LABS: Add Urine Microscopic? NO; Charge for UA Resulting for Rev
[2020-11-28 18:32] LABS: Bilirubin Urine Neg (Negative); Blood Urine Neg (Negative); Glucose Urine UA 2+ (Normal); Ketones Urine Negative (Negative); Leukocyte Esterase Urine Negative (Negative); Nitrate Urine Negative (Negative); Protein Urine Neg (Negative); Specific Gravity, Urine 1.015 (1.005-1.030); Urine Appearance Clear (CLEAR); Urine Color Yellow (Yellow); Urobilinogen Urine Norm (Negative); pH Urine 5 (5-7)
[2020-11-28 19:00] LABS: Lactate (Lactic Acid level) 2.6 mmol/L (0.5-2.2)
--- NOTE | 2020-11-28 19:00 | USR_ITS ---
PROCEDURE INFORMATION: Exam: US Duplex Lower Extremity Veins, Bilateral Exam date and time: 11/28/2020 7:01 PM Age: 75 years old Clinical indication: Swelling (edema) of limb; Lower extremity, right and lower extremity, left; Additional info: R/O dvt TECHNIQUE: Imaging protocol: Real-time duplex ultrasound of the extremities with 2-D rader scale, color Doppler flow and spectral waveform analysis with image documentation. Complete exam focused on the bilateral lower extremity veins. COMPARISON: No relevant prior studies available. FINDINGS: Right deep veins: Unremarkable. The common femoral, femoral, proximal profunda femoral and popliteal veins are patent without thrombus. Normal Doppler waveforms. Normal compressibility and/or augmentation response. Right superficial veins: Saphenofemoral junction is patent without thrombus. Left deep veins: Unremarkable. The common femoral, femoral, proximal profunda femoral and popliteal veins are patent without thrombus. Normal Doppler waveforms. Normal compressibility and/or augmentation response. Left superficial veins: Saphenofemoral junction is patent without thrombus. Soft tissues: Unremarkable. US/CV venous duplex [facility] [id number] IMPRESSION: No evidence of deep vein thrombosis.
--- NOTE | 2020-11-28 19:22 | ECG_ITS ---
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 Measurements Intervals [place] Rate: 69 P: 64 SC: 241 QRS: 7 QRSD: 100 T: 40 QT: 395 QTc: 425 Interpretive Statements SINUS RHYTHM WITH FIRST DEGREE AV BLOCK LOW QRS VOLTAGE IN PRECORDIAL LEADS [QRS DEFLECTION < 1.0 mV IN CHEST LEADS] PATTERN CONSISTENT WITH PULMONARY DISEASE Compared to ECG 11/28/2020 17:41:12 No significant changes Electronically Signed On 11-29-2020 0:10:45 CDT by Lina Hong M.D. [id number]
[2020-11-28 20:01] LABS: Troponin 5 2HR 33.46 ng/L (0-15)
[2020-11-28 20:02] LABS: Troponin 5 2HR Delta -9.54 ABS# (0-10)
[2020-11-28] MEDS: sodium polystyrene sulfonate 15 gm/60 mL Btl 30 GM PR (20:41)
[2020-11-28 21:22] LABS: Lactate (Lactic Acid level) 2.6 mmol/L (0.5-2.2)
--- NOTE | 2020-11-28 21:34 | W.ED.EXTPRO ---
HPI - Extremity Problem General: Chief complaint: Extremity Problem,Nontraumatic Stated complaint: BILATERAL LEG SWELLING Time Seen by Provider: 11/28/20 16:58 History of Present Illness: HPI Narrative: The patient is a 75-year-old male with past medical history diastolic CHF, hypertension, diabetes, CHANTAL, obesity. He comes to the ER after he was sent by home health complaining of bilateral leg swelling. He is not familiar that he has a history of CHF so I did discuss he does have diastolic CHF with him and does take Lasix and spironolactone. He also notes he has had a history of hyperkalemia in the past and has been told to stop taking his potassium which he has not taken for over a month or 2. He admits mild shortness of breath with moderate exertion which is chronic for him and he says it is unchanged. Denies chest pain. He says he has been asking his primary to increase his Lasix dose but has been unable to get him to do that so far. The swelling has increased over the past day or 2. He has very minimal edema to his lower extremities bilaterally but does have a large fatty legs and he is quite morbidly obese. MD Complaint: extremity swelling Relieving factors: elevation Associated symptoms: Reports no associated symptoms; Deny chest pain or rash Review of Systems General: Reports: 10 or more systems reviewed and unremarkable except in HPI and below Const: Denies: fatigue Eyes: Denies: change in vision, blurry vision or eye redness ENMT: Denies: throat pain, swelling of lips/tongue, ear or mastoid pain or nasal congestion Card: Denies: chest pain, palpitations, irregular heart rhythm, edema, dyspnea on exertion or orthopnea Resp: Denies: dyspnea, productive cough or non-productive cough GI: Denies: abdominal pain, diarrhea or GI cramping : Denies: flank pain, urinary frequency or urinary urgency Musc: Denies: neck pain, back pain, extremity pain, joint pain, joint redness, limited range of motion or muscle weakness Skin/Breast: Reports: other (Mild leg swelling); Denies: rash, pruritus, erythema, skin pain or skin tenderness Neuro: Denies: headache(s), numbness in extremities, weakness in extremities, sensory changes, difficulty walking, dizziness, confusion or Slurred speech present Psych: Denies: anxiety or depression Endo: Denies: polyuria All/Imm: Denies: urticaria, throat swelling or tongue swelling PFSH ED PFSH: Medical History Acute diastolic heart failure Acute kidney injury Since the patient seems to be remaining stable with no new symptoms, is advised to continue the current medication. Anemia Bursitis, shoulder Chronic back pain Depression Diabetes mellitus Displacement of lumbar disc with radiculopathy Gastroesophageal reflux disease Hypertension Intervertebral disc disorder with radiculopathy of lumbosacral region Lumbar stenosis with neurogenic claudication Moderate obstructive sleep apnea Morbid obesity with BMI of 45.0-49.9, adult Morbid obesity with BMI of 50.0-59.9, adult Obesity Obstructive sleep apnea Osteoarthritis of spine with radiculopathy, lumbar region Other specified anxiety disorders Shortness of breath on exertion The EKG from 11/29/2017 revealed sinus rhythm with a first-degree AV block. According the patient, he had another EKG recently and the results are not available. Spinal stenosis, lumbar region with neurogenic claudication Surgical History History of cervical spinal surgery (~2013) 2016 Dr. Mark Caldera ACDFF History of knee replacement 2009 [place] left total knee replacement 2008 [place] right total knee replacement History of repair of rotator cuff 10/24/2013 Dr. Len Angel: Acromioplasty, distal clavicle resection, and rotator cuff repair with suture anchors, absorbable. Family History Sister Depression Diabetes Father Depression Cancer Grandmother Depression Brother Diabetes Mother Stroke Denies family history of CAD (coronary artery disease) Clotting disorder Dementia Chronic kidney disease (CKD) Suicide Anesthesia complication Bleeding disorder Lung disease Social History Smoking and tobacco status: former smoker Alcohol intake: current Alcohol type: beer Household members: family and other Details: sister Marital status: / Current occupational status: retired and disabled History of recent travel: No Physical Exam Const: COMMON NORMALS: no acute distress, average body habitus, patient oriented x3, no limitations, healthy appearing, alert and well nourished GENERAL APPEARANCE: cooperative, comfortable, well kempt and well developed NUTRITIONAL APPEARANCE: obese ORIENTATION/CONSCIOUSNESS: Yes awake, Yes oriented to person, Yes oriented to place and Yes oriented to time HENMT: COMMON NORMALS: normocephalic, external ears normal and Normal external nose present HEAD & SCALP: normal to inspection and normocephalic NOSE: Normal external nose present EXTERNAL EAR: Yes external ears normal MOUTH: Normal oral and palatal mucosa present THROAT: posterior oropharynx normal Eye: COMMON NORMALS: Equal, round and reactive pupils present and EOMs intact bilaterally GENERAL EYE: appearance normal, both eyes and all related structures PUPIL: Yes Equal, round and reactive pupils present Neck/C-Spine: COMMON NORMALS: full ROM, no lymphadenopathy, no meningeal signs and no JVD GENERAL: Yes normal visual inspection Lymph: LYMPHATIC: no lymphadenopathy noted Chest: COMMONS NORMALS: normal inspection of the chest and normal palpation of entire chest wall Resp: COMMON NORMALS: normal respiratory effort, No retractions, No use of accessory muscles, clear to auscultation bilaterally and percussion normal EFFORT & INSPECTION: Yes able to speak in complete sentences AUSCULTATION: clear to auscultation bilaterally PERCUSSION: percussion normal Cardio: COMMON NORMALS: no JVD, regular rate, regular rhythm, S1 normal heart sound present, S2 normal heart sound present and Peripheral pulses 2+ throughout RATE: regular rate RHYTHM: regular rhythm HEART SOUNDS: S1 normal heart sound present and S2 normal heart sound present PERIPHERAL PULSES: Peripheral pulses 2+ throughout GI: COMMON NORMALS: Normal to inspection, nondistended, normoactive bowel sounds present, Soft to palpation, non-tender and no masses INSPECTION: Yes normal to inspection PALPATION: Yes Soft to palpation : COMMON NORMALS: Yes no CVA tenderness BLADDER/KIDNEY EXAM: Yes no CVA tenderness Back/Pelvis: COMMON NORMALS: no CVA tenderness, thoracic and lumbar spine normal to inspection, no thoracic nor lumbar tenderness and thoraco-lumbar ROM normal Extremity: COMMON NORMALS: normal to inspection, full ROM, capillary refill normal, no joint enlargement and no pedal edema GENERAL: Yes normal exam except as noted Neuro: COMMON NORMALS: patient oriented x3, CN's II-XII intact bilaterally, moves all extremities, no focal motor deficits, no sensory deficits noted and gait normal SENSORIUM/ORIENTATION: Yes alert, Yes oriented to person, Yes oriented to place and Yes oriented to time MENINGEAL SIGNS: Yes no meningeal signs Psych: COMMON NORMALS: mental status grossly normal, Normal thought process present, cooperative, normal affect and speech normal APPEARANCE: Yes well kempt ATTITUDE: Yes calm SPEECH: Yes normal speech THOUGHT PROCESS: Normal thought process present Skin: COMMON NORMALS: no rashes or lesions noted NARRATIVE SKIN EXAM: He has large legs chronically and there is minimal 1+ edema at the ankles bilaterally. He has large legs at baseline. GENERAL SKIN EXAM: no rashes or lesions noted Course Vital Signs: Vital signs: Vital Signs Temperature 98.4 F 11/28/20 16:56 Pulse Rate 76 11/28/20 20:44 Respiratory Rate 22 H 11/28/20 20:44 Blood Pressure 107/58 11/28/20 20:44 Pulse Oximetry 93 11/28/20 20:44 MDM - Extremity (Nontraumatic) MDM Narrative: Medical decision making narrative: The patient comes to the ER complaining of leg swelling. Upon questioning he says he also chronically has shortness of breath with moderate exertion. That is chronic and unchanged. He was sent by home health for evaluation of the leg swelling. He does have diastolic CHF in his history and takes Lasix and spironolactone. He was given a dose of Lasix which she says improved his leg swelling significantly. Chest x-ray nonacute. His potassium is 5.6 this evening and he has problems with this in the past. Sometime ago he was told to stop taking his potassium pills. He also takes an SVITLANA inhibitor and spironolactone which could be contributing to his hyperkalemia. There is mild acute kidney injury as well possibly related to his CHF. No significant T wave elevations on his EKG. He was given a dose of Kayexalate in the ED. Offered the patient admission and he preferred discharge which is also appropriate for outpatient follow-up. Recommended he hold the spironolactone and call his doctor tomorrow morning to discuss further and get an appointment JOANIE. Also he has mildly elevated lactic acid which was unchanged after a 2-hour draw. The cause of this is unclear but there are no infectious causes identified. I recommended he have these labs rechecked at his primary care doctor office and call his doctor tomorrow morning to schedule an appointment. Return to the ER at anytime with worsening symptoms. Lab Data: Labs: Lab Results 11/28/20 11/28/20 11/28/20 Range/Units 17:08 17:08 17:08 WBC 6.7 (4.0-10.0) 10^3/ uL RBC 3.94 L (4.1-5.3) 10^6/u L Hgb 12.9 (11.7-16.6) g/dL Hct 40.2 L (42.0-52.0) % MCV 102.0 H (80-94) fL MCH 32.7 (28.0-34.0) pg MCHC 32.1 (30.0-36.0) g/dL RDW 12.2 (12.1-15.1) % Plt Count 221 (130-400) 10^3/c mm MPV 11.5 H (7.4-10.4) fL Neut % (Auto) 52.7 % Lymph % (Auto) 34.9 % [place] % (Auto) 9.1 % Eos % (Auto) 2.4 % Baso % (Auto) 0.6 % Neut # (Auto) 3.55 (1.8-7.7) 10^3/u L Lymph # (Auto) 2.4 (0.8-4.8) 10^3/u L [place] # (Auto) 0.6 (0.2-0.9) 10^3/u L Eos # (Auto) 0.2 (0.0-0.8) 10^3/u L Baso # (Auto) 0.0 (0.0-0.1) 10^3/u L Nucleated RBC % (a uto) 0 % Nucleated RBCs # 0.0 /100WBC Sodium 137 (136-145) mmol/L Potassium 5.6 H (3.5-5.1) mmol/L Chloride 96 L (98-107) mmol/L Carbon Dioxide 26 (22-29) mmol/L Anion Gap 20.6 H (5-19) BUN 21 (8-23) mg/dL Creatinine 1.3 H (0.7-1.2) mg/dL GFR Calculation Not Reportable Glucose 237 H (65-115) mg/dL Calculated Osmolal ity 295 (285-295) mOsm/k g Lactate (0.5-2.2) mmol/L Calcium 9.2 (8.5-10.5) mg/dL Total Bilirubin 0.7 (0.15-1.2) mg/dL AST 61 H (0-40) U/L ALT 35 (0-41) U/L Alkaline Phosphata se 61 (40-130) IU/L Troponin T Baselin e 43 H (0-15) ng/L Troponin T 120 Min lisa (0-15) ng/L Delta Troponin T (0-10) ABS# NT-Pro-B Natriuret Pep 130 H (0-125) pg/mL Total Protein 7.2 (6.6-8.7) g/dL Albumin 4.5 (3.5-5.2) g/dL Globulin 2.7 (1.3-4.6) g/dL Urine Color (Yellow) Urine Appearance (CLEAR) Urine pH (5-7) Ur Specific Gravit y (1.005-1.030) Urine Protein (Negative) Urine Glucose (UA) (Normal) Urine Ketones (Negative) Urine Blood (Negative) Urine Nitrate (Negative) Urine Bilirubin (Negative) Urine Urobilinogen (Negative) mg/dL Ur Leukocyte Velia ase (Negative) 11/28/20 11/28/20 11/28/20 Range/Units 18:17 18:22 19:22 WBC (4.0-10.0) 10^3/ uL RBC (4.1-5.3) 10^6/u L Hgb (11.7-16.6) g/dL Hct (42.0-52.0) % MCV (80-94) fL MCH (28.0-34.0) pg MCHC (30.0-36.0) g/dL RDW (12.1-15.1) % Plt Count (130-400) 10^3/c mm MPV (7.4-10.4) fL Neut % (Auto) % Lymph % (Auto) % [place] % (Auto) % Eos % (Auto) % Baso % (Auto) % Neut # (Auto) (1.8-7.7) 10^3/u L Lymph # (Auto) (0.8-4.8) 10^3/u L [place] # (Auto) (0.2-0.9) 10^3/u L Eos # (Auto) (0.0-0.8) 10^3/u L Baso # (Auto) (0.0-0.1) 10^3/u L Nucleated RBC % (a uto) % Nucleated RBCs # /100WBC Sodium (136-145) mmol/L Potassium (3.5-5.1) mmol/L Chloride (98-107) mmol/L Carbon Dioxide (22-29) mmol/L Anion Gap (5-19) BUN (8-23) mg/dL Creatinine (0.7-1.2) mg/dL GFR Calculation Glucose (65-115) mg/dL Calculated Osmolal ity (285-295) mOsm/k g Lactate 2.6 H (0.5-2.2) mmol/L Calcium (8.5-10.5) mg/dL Total Bilirubin (0.15-1.2) mg/dL AST (0-40) U/L ALT (0-41) U/L Alkaline Phosphata se (40-130) IU/L Troponin T Baselin e (0-15) ng/L Troponin T 120 Min lisa 33.46 H (0-15) ng/L Delta Troponin T -9.54 L (0-10) ABS# NT-Pro-B Natriuret Pep (0-125) pg/mL Total Protein (6.6-8.7) g/dL Albumin (3.5-5.2) g/dL Globulin (1.3-4.6) g/dL Urine Color Yellow (Yellow) Urine Appearance Clear (CLEAR) Urine pH 5 (5-7) Ur Specific Gravit y 1.015 (1.005-1.030) Urine Protein Neg (Negative) Urine Glucose (UA) 2+ (Normal) Urine Ketones Negative (Negative) Urine Blood Neg (Negative) Urine Nitrate Negative (Negative) Urine Bilirubin Neg (Negative) Urine Urobilinogen Norm (Negative) mg/dL Ur Leukocyte Velia ase Negative (Negative) 11/28/20 Range/Units 20:46 WBC (4.0-10.0) 10^3/ uL RBC (4.1-5.3) 10^6/u L Hgb (11.7-16.6) g/dL Hct (42.0-52.0) % MCV (80-94) fL MCH (28.0-34.0) pg MCHC (30.0-36.0) g/dL RDW (12.1-15.1) % Plt Count (130-400) 10^3/c mm MPV (7.4-10.4) fL Neut % (Auto) % Lymph % (Auto) % [place] % (Auto) % Eos % (Auto) % Baso % (Auto) % Neut # (Auto) (1.8-7.7) 10^3/u L Lymph # (Auto) (0.8-4.8) 10^3/u L [place] # (Auto) (0.2-0.9) 10^3/u L Eos # (Auto) (0.0-0.8) 10^3/u L Baso # (Auto) (0.0-0.1) 10^3/u L Nucleated RBC % (a uto) % Nucleated RBCs # /100WBC Sodium (136-145) mmol/L Potassium (3.5-5.1) mmol/L Chloride (98-107) mmol/L Carbon Dioxide (22-29) mmol/L Anion Gap (5-19) BUN (8-23) mg/dL Creatinine (0.7-1.2) mg/dL GFR Calculation Glucose (65-115) mg/dL Calculated Osmolal ity (285-295) mOsm/k g Lactate 2.6 H (0.5-2.2) mmol/L Calcium (8.5-10.5) mg/dL Total Bilirubin (0.15-1.2) mg/dL AST (0-40) U/L ALT (0-41) U/L Alkaline Phosphata se (40-130) IU/L Troponin T Baselin e (0-15) ng/L Troponin T 120 Min lisa (0-15) ng/L Delta Troponin T (0-10) ABS# NT-Pro-B Natriuret Pep (0-125) pg/mL Total Protein (6.6-8.7) g/dL Albumin (3.5-5.2) g/dL Globulin (1.3-4.6) g/dL Urine Color (Yellow) Urine Appearance (CLEAR) Urine pH (5-7) Ur Specific Gravit y (1.005-1.030) Urine Protein (Negative) Urine Glucose (UA) (Normal) Urine Ketones (Negative) Urine Blood (Negative) Urine Nitrate (Negative) Urine Bilirubin (Negative) Urine Urobilinogen (Negative) mg/dL Ur Leukocyte Velia ase (Negative) Discharge Plan Discharge Patient Disposition: Home Clinical Impression: Leg swelling, Hyperkalemia, Elevated lactic acid level, Creatinine elevation, Chronic diastolic CHF (congestive heart failure) Condition: Stable Prescriptions: Continued Ozempic 0.25 mg or 0.5 mg(2 mg/1.5 mL) pen injector 0.25 mg SUBCUT Q7D RF: 0 Discontinued spironolactone 25 mg tablet 25 mg PO DAILY Qty: 90 RF: 3 Hold Instructions: Doctor's Order No Action atorvastatin 20 mg tablet 20 mg PO DAILY RF: 0 escitalopram oxalate 10 mg tablet 20 mg PO DAILY RF: 0 glipizide 5 mg tablet 5 mg PO DAILY RF: 0 mirtazapine 30 mg tablet 30 mg PO BEDTIME RF: 0 pantoprazole 40 mg tablet,delayed release (DR/EC) 40 mg PO DAILY RF: 0 diphenhydramine-acetaminophen [Tylenol PM Extra Strength] 25-500 mg tablet 2 tab PO BEDTIME PRN (Reason: Sleep) RF: 0 tamsulosin 0.4 mg capsule 0.4 mg PO DAILY RF: 0 lisinopril 20 mg tablet 20 mg PO DAILY RF: 0 furosemide 40 mg tablet 40 mg PO DAILY Qty: 90 RF: 3 gabapentin 600 mg Tablet See Rx Instructions .ROUTE .COMPLEX RF: 0 albuterol sulfate 2.5 mg /3 mL (0.083 %) Solution For Nebulization 2.5 mg INHALATION QID PRN (Reason: Shortness Of Breath) RF: 0 ergocalciferol (vitamin D2) 1,250 mcg (50,000 unit) capsule See Rx Instructions .ROUTE .COMPLEX RF: 0 albuterol sulfate 90 mcg/actuation Hfa Aerosol Inhaler 1 inh INHALATION QID PRN (Reason: Shortness Of Breath) RF: 0 Humalog KwikPen Insulin 100 unit/mL insulin pen 8 unit SUBCUT BID RF: 0 Symbicort 160-4.5 mcg/actuation HFA aerosol inhaler 1 puff INHALATION BID RF: 0 Toujeo SoloStar U-300 Insulin 300 unit/mL (1.5 mL) insulin pen 30 unit SUBCUT DAILY RF: 0 amlodipine 5 mg Tablet 5 mg PO DAILY Qty: 30 RF: 0 hydrocodone-acetaminophen 10-325 mg tablet 1 tab PO Q6H PRN (Reason: Pain) Qty: 0 RF: 0 Discharge Orders: Discharge ED (Routine); Ordered 11/28/20 Ordered By: Jose Guadalupe Sullivan Referrals: Corrina Thakkar, [employer] [Primary Care Provider] - Discharge Diet: Advance as tolerated Discharge Activity: Resume usual activity Patient Instructions: Hyperkalemia (ED), Leg Edema (ED), Impaired Kidney Function (ED), Opioid Safety Activity Restrictions/Additional Instructions: 1. Leg swelling: You have chronic diastolic CHF and take Lasix for this. This is likely the cause of your leg swelling. We have given you Lasix here which has improved your leg swelling. Please continue to take your Lasix and follow-up with your doctor tomorrow for an appointment JOANIE to discuss further. 2. Hyperkalemia: Your potassium has been elevated here which must continue to be monitored. We have given you Kayexalate to bring it down and recommend that you hold your spironolactone as it makes your potassium elevated. Call your doctor tomorrow morning to discuss an JOANIE appointment to get this rechecked to ensure that is lower. If it is not lower you may need to return to the hospital or discontinue your lisinopril as well as it can elevate your potassium. 3. Elevated lactic acid: Your lactic acid has been mildly elevated here. This is usually found in infectious states that we have found no infection in the ED today. This lab must also be redrawn when you see your doctor. Return to the ER with worsening symptoms at any time for further evaluation and make sure you follow-up with your primary care to get your labs redrawn. Coding Level of Care Code ED Machine Stemmer for Siobhan Solorio Exam Comprehensive
--- NOTE | 2020-12-03 11:14 | DCPLANNER ---
lodging facilities manager had message to schedule a follow up appointment for patient with heart care. lodging facilities manager called heart care, spoke with Cinda, gave clinic patients information. A follow up appointment was scheduled for Sunday, December 06, 2020 at 9:15 with [employer], Ashley Herbert. lodging facilities manager called patient and gave patient the appointment information.
--- NOTE | 2020-12-06 13:43 | DCPLANNER ---
Patient had a follow up appointment scheduled for 12.06.20 at heart care - patient did attend appointment.
== END 2020-11-28 22:45 | disposition home or self-care (01) ==
PROVIDERS: Emergency Provider Family Medicine; PCP Nurse Practitioner Family
DX: M79.89 Other specified soft tissue disorders (principal); E87.5 Hyperkalemia; R74.02 Elevation of levels of lactic acid dehydrogenase [LDH]; I11.0 Hypertensive heart disease with heart failure; I50.32 Chronic diastolic (congestive) heart failure; R79.9 Abnormal finding of blood chemistry, unspecified; Z79.4 Long term (current) use of insulin; E11.9 Type 2 diabetes mellitus without complications; Z87.891 Personal history of nicotine dependence
CPT/HCPCS: 36415; 71045; 80053; 81003; 83605; 83880; 84484; 85025; 93005; 93970; 96374; 99284; J1940

== ENCOUNTER → 2021-01-01 09:05 | Outpatient (BNVA) | payer MEDICARE, MEDICAID, SELFPAY | PROVIDERS: PCP Nurse Practitioner Family; Referring Provider Orthopaedic Surgery; Visit Provider Anesthesiology | DX: G89.29 Other chronic pain (principal); M48.062 Spinal stenosis, lumbar region with neurogenic claudication; M51.16 Intervertebral disc disorders with radiculopathy, lumbar region; M51.17 Intervertebral disc disorders with radiculopathy, lumbosacral region; M47.26 Other spondylosis with radiculopathy, lumbar region; Z79.891 Long term (current) use of opiate analgesic; Z87.891 Personal history of nicotine dependence | CPT/HCPCS: 99203; 99204 ==

== ENCOUNTER 2021-02-11 12:42 | Inpatient (IN) | payer MEDICARE, MEDICAID, SELFPAY ==
[2021-02-11] VITALS (8 sets, daily range): BP systolic 112–156; BP diastolic 57–84; PULSE 61–106; RESP 18–22; TEMP 36.7–36.8; O2SAT 94–97; BMI 54.6
--- NOTE | 2021-02-11 12:57 | XR_ITS ---
WS: [id number] Portable AP upright chest, 02/11/2021 Clinical Data: dyspnea/cough Comparison: Portable chest, 11/28/2020. Findings: No nodules, masses or effusions are seen. The heart is normal. The pulmonary vascularity is not increased. No pneumonia or pneumothorax is seen. The aortic arch and descending aorta show tortu osity. The patient has had an anterior cervical disc fusion. XR/XR chest 1V portable [id number] Impression: Atherosclerosis.
--- NOTE | 2021-02-11 12:57 | ECG_ITS ---
[facility] Test Date: 2021-02-11 Pat Name: Enzo Trujillo Department: Room: Gender: Male [place] P[employer]: LAURA : 1945 Requested By: Golden Spaulding Order Number: [id number] Reading MD: ROSALIO BARFIELD Measurements Intervals [place] Rate: 58 P: 17 HI: 260 QRS: 30 QRSD: 107 T: 44 QT: 421 QTc: 417 Interpretive Statements SINUS BRADYCARDIA WITH FIRST DEGREE AV BLOCK LOW QRS VOLTAGE [QRS DEFLECTION < 0.5/1.0 mV IN LIMB/CHEST LEADS] Compared to ECG 11/28/2020 20:20:28 Sinus rhythm no longer present Electronically Signed On 02-11-2021 22:32:05 CDT by ROSALIO BARFIELD [email or web address]
--- NOTE | 2021-02-11 13:00 | ED_ITS ---
HPI - General Adult General: Chief complaint: General Medical Stated complaint: ABNORMAL LABS Time Seen by Provider: 02/11/21 12:56 History of Present Illness: HPI narrative: 75-year-old male presents emergency room complaining of kidney problems. He went to get some lab work done at his primary care doctor and there was a complaint of some shortness of breath as well as some mild edema which he states is actually been getting better. He was told he had kidney issues and reported to directed to the emergency room. Denies any chest pain. He did have a little bit of shortness of breath but he states that is chronic he is diabetic. Onset (ago): hour(s) Relieving factors: none Exacerbating factors: none Associated symptoms: Reports dyspnea, short of breath and weakness; Deny chest pain, confusion, cough, diaphoresis, decreased appetite, fevers/chills, headache(s), malaise, nausea, rash, palpitations, seizures, syncope or vomiting Treatments prior to arrival: none Review of Systems Const: Denies: malaise or diaphoresis ENMT: Denies: throat pain, ear or mastoid pain, nasal discharge or nasal congestion Card: Denies: chest pain, palpitations or syncope Resp: Reports: dyspnea GI: Denies: nausea or vomiting : Denies: flank pain, dysuria, urinary frequency or urinary urgency Skin/Breast: Denies: rash Neuro: Denies: headache(s) or confusion PFS ED PFSH: Medical History Acute diastolic heart failure Acute kidney injury Since the patient seems to be remaining stable with no new symptoms, is advised to continue the current medication. Anemia Bursitis, shoulder Chronic back pain Depression Diabetes mellitus Displacement of lumbar disc with radiculopathy Encounter for long-term opiate analgesic use Gastroesophageal reflux disease Hypertension Intervertebral disc disorder with radiculopathy of lumbosacral region Lumbar stenosis with neurogenic claudication Moderate obstructive sleep apnea Morbid obesity with BMI of 45.0-49.9, adult Morbid obesity with BMI of 50.0-59.9, adult Obesity Obstructive sleep apnea Opioid contract exists Osteoarthritis of spine with radiculopathy, lumbar region Other specified anxiety disorders Shortness of breath on exertion The EKG from 11/29/2017 revealed sinus rhythm with a first-degree AV block. According the patient, he had another EKG recently and the results are not available. Spinal stenosis, lumbar region with neurogenic claudication Surgical History History of cervical spinal surgery (~2013) 2016 Dr. Mark VAZQUEZ History of knee replacement 2009 [place] left total knee replacement 2008 [place] right total knee replacement History of repair of rotator cuff 10/24/2013 Dr. Len Angel: Acromioplasty, distal clavicle resection, and rotator cuff repair with suture anchors, absorbable. Family History Sister Depression Diabetes Father Depression Cancer Grandmother Depression Brother Diabetes Mother Stroke Denies family history of CAD (coronary artery disease) Clotting disorder Dementia Chronic kidney disease (CKD) Suicide Anesthesia complication Bleeding disorder Lung disease Social History Smoking and tobacco status: former smoker Alcohol intake: current Alcohol type: beer Household members: family and other Details: sister Marital status: / Current occupational status: retired and disabled History of recent travel: No Physical Exam Const: COMMON NORMALS: no acute distress GENERAL APPEARANCE: cooperative and comfortable ORIENTATION/CONSCIOUSNESS: Yes awake, Yes oriented to person, Yes oriented to place and Yes oriented to time HENMT: COMMON NORMALS: normocephalic, atraumatic and hearing grossly normal bilaterally HEAD & SCALP: normocephalic and atraumatic Neck/C-Spine: COMMON NORMALS: no JVD Resp: COMMON NORMALS: normal respiratory effort, No retractions, No use of accessory muscles and clear to auscultation bilaterally AUSCULTATION: clear to auscultation bilaterally Cardio: COMMON NORMALS: no JVD, regular rate, regular rhythm and No murmurs present (Cardio) RATE: regular rate RHYTHM: regular rhythm GI: COMMON NORMALS: Soft to palpation and No hepatosplenomegaly present AUSCULTATION: Yes normoactive bowel sounds PALPATION: Yes Soft to palpation, No Tenderness to palpation present (GI), No Guarding due to palpation present (GI) and Yes No hepatosplenomegaly present Extremity: COMMON NORMALS: normal to inspection, capillary refill normal and no calf tenderness Neuro: SENSORIUM/ORIENTATION: Yes oriented to person, Yes oriented to place and Yes oriented to time Course Vital Signs: Vital signs: Vital Signs Temperature 98.1 F 02/13/21 04:15 Pulse Rate 125 H 02/13/21 04:15 Respiratory Rate 13 02/13/21 04:15 Blood Pressure 106/65 02/13/21 04:15 Pulse Oximetry 91 02/13/21 04:15 MDM - General Adult MDM Narrative: Medical decision making narrative: Acute kidney injury with hyperkalemia. History of alcohol abuse, hypertension diabetes.. Discussed Dr. Xie orders written Lab Data: Labs: Lab Results 02/11/21 02/11/21 02/11/21 Range/Units 13:20 13:20 13:50 WBC 8.6 (4.0-10.0) 10^3/ uL RBC 4.05 L (4.1-5.3) 10^6/u L Hgb 13.2 (11.7-16.6) g/dL Hct 41.2 L (42.0-52.0) % MCV 101.7 H (80-94) fL MCH 32.6 (28.0-34.0) pg MCHC 32.0 (30.0-36.0) g/dL RDW 12.5 (12.1-15.1) % Plt Count 207 (130-400) 10^3/c mm MPV 11.4 H (7.4-10.4) fL Neut % (Auto) 72.2 % Lymph % (Auto) 18.8 % [place] % (Auto) 5.9 % Eos % (Auto) 2.2 % Baso % (Auto) 0.7 % Neut # (Auto) 6.23 (1.8-7.7) 10^3/u L Lymph # (Auto) 1.6 (0.8-4.8) 10^3/u L [place] # (Auto) 0.5 (0.2-0.9) 10^3/u L Eos # (Auto) 0.2 (0.0-0.8) 10^3/u L Baso # (Auto) 0.1 (0.0-0.1) 10^3/u L Nucleated RBC % (a uto) 0 % Nucleated RBCs # 0.0 /100WBC Sodium 138 (136-145) mmol/L Potassium 6.7 H* (3.5-5.1) mmol/L Chloride 100 (98-107) mmol/L Carbon Dioxide 27 (22-29) mmol/L Anion Gap 17.7 (5-19) BUN 38 H (8-23) mg/dL Creatinine 2.4 H (0.7-1.2) mg/dL GFR Calculation Not Reportable Glucose 160 H (65-115) mg/dL Calculated Osmolal ity 298 H (285-295) mOsm/k g Calcium 10.0 (8.5-10.5) mg/dL Total Bilirubin 0.9 (0.15-1.2) mg/dL AST 47 H (0-40) U/L ALT 31 (0-41) U/L Alkaline Phosphata se 59 (40-130) IU/L Total Protein 7.8 (6.6-8.7) g/dL Albumin 4.5 (3.5-5.2) g/dL Globulin 3.3 (1.3-4.6) g/dL Urine Color Straw (Yellow) Urine Appearance Clear (CLEAR) Urine pH 6 (5-7) Ur Specific Gravit y 1.005 (1.005-1.030) Urine Protein Neg (Negative) Urine Glucose (UA) 2+ (Normal) Urine Ketones Negative (Negative) Urine Blood Neg (Negative) Urine Nitrate Negative (Negative) Urine Bilirubin Neg (Negative) Urine Urobilinogen Norm (Negative) mg/dL Ur Leukocyte Velia ase Negative (Negative) Ur Eosinophil Smea r Urine Eosinophils Urine Osmolality (50-1200) mOsm/k g Ur Random Sodium mmol/L Ur Random Potassiu m mmol/L Ur Random Chloride mmol/L Ur Random Urea Nit rogn mg/dL Urine Creatinine (39-259) mg/dL 02/11/21 02/11/21 02/11/21 Range/Units 13:50 13:50 13:50 WBC (4.0-10.0) 10^3/ uL RBC (4.1-5.3) 10^6/u L Hgb (11.7-16.6) g/dL Hct (42.0-52.0) % MCV (80-94) fL MCH (28.0-34.0) pg MCHC (30.0-36.0) g/dL RDW (12.1-15.1) % Plt Count (130-400) 10^3/c mm MPV (7.4-10.4) fL Neut % (Auto) % Lymph % (Auto) % [place] % (Auto) % Eos % (Auto) % Baso % (Auto) % Neut # (Auto) (1.8-7.7) 10^3/u L Lymph # (Auto) (0.8-4.8) 10^3/u L [place] # (Auto) (0.2-0.9) 10^3/u L Eos # (Auto) (0.0-0.8) 10^3/u L Baso # (Auto) (0.0-0.1) 10^3/u L Nucleated RBC % (a uto) % Nucleated RBCs # /100WBC Sodium (136-145) mmol/L Potassium (3.5-5.1) mmol/L Chloride (98-107) mmol/L Carbon Dioxide (22-29) mmol/L Anion Gap (5-19) BUN (8-23) mg/dL Creatinine (0.7-1.2) mg/dL GFR Calculation Glucose (65-115) mg/dL Calculated Osmolal ity (285-295) mOsm/k g Calcium (8.5-10.5) mg/dL Total Bilirubin (0.15-1.2) mg/dL AST (0-40) U/L ALT (0-41) U/L Alkaline Phosphata se (40-130) IU/L Total Protein (6.6-8.7) g/dL Albumin (3.5-5.2) g/dL Globulin (1.3-4.6) g/dL Urine Color (Yellow) Urine Appearance (CLEAR) Urine pH (5-7) Ur Specific Gravit y (1.005-1.030) Urine Protein (Negative) Urine Glucose (UA) (Normal) Urine Ketones (Negative) Urine Blood (Negative) Urine Nitrate (Negative) Urine Bilirubin (Negative) Urine Urobilinogen (Negative) mg/dL Ur Leukocyte Velia ase (Negative) Ur Eosinophil Smea r Not Reportable Urine Eosinophils No eosinophils se en Urine Osmolality 368 (50-1200) mOsm/k g Ur Random Sodium 129 mmol/L Ur Random Potassiu m 27 mmol/L Ur Random Chloride 139 mmol/L Ur Random Urea Nit rogn 142 mg/dL Urine Creatinine 28 L (39-259) mg/dL Discharge Plan Discharge Patient Disposition: Admitted As Inpatient Admit Provider: Mike Xie Clinical Impression: Acute kidney injury, Hyperkalemia, Hypertension, Diabetes mellitus, Morbid obesity with BMI of 50.0-59.9, adult Condition: Stable Coding Level of Care Code ED Chef Kitchen Manager for Chg Fwd Exam Detailed
[2021-02-11 13:34] LABS: Basophils # 0.1 10^3/uL (0.0-0.1); Basophils % 0.7 %; Eosinophils # 0.2 10^3/uL (0.0-0.8); Eosinophils % 2.2 %; Hematocrit 41.2 % (42.0-52.0); Hemoglobin 13.2 g/dL (11.7-16.6); Lymphocytes # 1.6 10^3/uL (0.8-4.8); Lymphocytes % 18.8 %; Mean Corpuscular Hemoglobin 32.6 pg (28.0-34.0); Mean Corpuscular Volume 101.7 fL (80-94); Mean Platelet Volume 11.4 fL (7.4-10.4); Monocytes # 0.5 10^3/uL (0.2-0.9); Monocytes % 5.9 %; Neutrophils # 6.23 10^3/uL (1.8-7.7); Neutrophils % 72.2 %; Nucleated Red Blood Cells % 0 %; Platelet Count 207 10^3/cmm (130-400); Red Blood Count 4.05 10^6/uL (4.1-5.3); Red Cell Distribution Width 12.5 % (12.1-15.1); White Blood Count 8.6 10^3/uL (4.0-10.0)
[2021-02-11 13:53] LABS: Alanine Aminotransferase 31 U/L (0-41); Albumin Level 4.5 g/dL (3.5-5.2); Alkaline Phosphatase 59 IU/L (40-130); Aspartate Amino Transferase 47 U/L (0-40); Blood Urea Nitrogen 38 mg/dL (8-23); Carbon Dioxide 27 mmol/L (22-29); Chloride 100 mmol/L (98-107); Globulin 3.3 g/dL (1.3-4.6); Glucose 160 mg/dL (65-115); Osmolality Calculated 298 mOsm/kg (285-295); Sodium 138 mmol/L (136-145); Total Bilirubin 0.9 mg/dL (0.15-1.2); Total Protein 7.8 g/dL (6.6-8.7)
[2021-02-11 13:56] LABS: Anion Gap 17.7 (5-19)
[2021-02-11 13:57] LABS: Potassium 6.7 mmol/L (3.5-5.1)
[2021-02-11 14:05] LABS: Add Urine Microscopic? NO; Charge for UA Resulting for Rev
[2021-02-11 14:25] LABS: Bilirubin Urine Neg (Negative); Blood Urine Neg (Negative); Glucose Urine UA 2+ (Normal); Ketones Urine Negative (Negative); Leukocyte Esterase Urine Negative (Negative); Nitrate Urine Negative (Negative); Protein Urine Neg (Negative); Specific Gravity, Urine 1.005 (1.005-1.030); Urine Appearance Clear (CLEAR); Urine Color Straw (Yellow); Urobilinogen Urine Norm (Negative); pH Urine 6 (5-7)
[2021-02-11] MEDS: insulin regular-human 100 units/1 mL 10 UNIT IVP (14:50)
[2021-02-11] MEDS: sodium polystyrene sulfonate 15 gm/60 mL Btl PO (14:58)
[2021-02-11] MEDS: dextrose 50% syringe 50 mL IVP (14:58)
[2021-02-11] MEDS: sodium bicarbonate 8.4% 1 mEq/mL 50mL Syr 100 MEQ IVP (14:58)
--- NOTE | 2021-02-11 15:43 | PM.HP ---
Providers/Chief Complaint Primary Care Provider: Corrina Thakkar ENVIRONMENTAL TEST TECHNICIAN-C Chief Complaint: ABNORMAL LABS History of Present Illness Enzo Trujillo is a 75 year old male with a past medical history of diastolic CHF, insulin-dependent type 2 diabetes mellitus, degenerative disc disease, CHANTAL on CPAP, morbid obesity, chronic kidney disease, depression, GERD, hypertension, who presents to [facility] from his primary care physician's behest due to evidence of elevated potassium, and renal failure on his routine blood work. Patient tells me that currently he is undergoing evaluation for back surgery by Dr. Wren, Dr. Wren wants his hemoglobin A1c under 9, so her primary care physician in [place] was doing routine blood work, when he was called this morning because he had high potassium and evidence of kidney failure. Patient tells me that he lives in [place], with his sister, he has not been ill recently, no fevers, no cough, no known exposure to COVID-19. No recent falls, no recent injury, no recent trauma. No dysuria, no hematuria, no flank pain, does have BPH, for which he takes Flomax. No recent history of heat exhaustion, no history of dehydration. No recent medication changes, he is on diuretics, blood pressure medications, no recent changes. Denies any NSAID use, uses hydrocodone for back pain. Denies any weakness, no falls, has not felt ill, no chest pain, no palpitations, no lightheadedness, no dizziness. Review of Systems Const: Denies: fever(s), chills, body aches, fatigue or malaise Eyes: Denies: change in vision ENMT: Denies: nasal congestion Card: Denies: chest pain, palpitations, edema, lightheadedness, syncope or dyspnea on exertion Resp: Denies: dyspnea, productive cough, non-productive cough or wheezing GI: Denies: abdominal pain, nausea, vomiting, hematemesis, diarrhea, constipation, hematochezia or melena : Denies: flank pain, difficulty urinating, dysuria, urinary frequency or urinary urgency Musc: Denies: neck pain or back pain Skin/Breast: Denies: rash Neuro: Denies: headache(s), dizziness or vertigo Psych: Denies: anxiety or depression Endo: Denies: polyuria or polydipsia Medications/Allergies Home Medications Medication Instructions Recorded Confirmed Last Taken Type diphenhydramine 25 3 tab PO BEDTIME tab 12/25/19 02/11/21 02/10/21 History mg-acetaminophen 500 mg tablet mirtazapine 30 mg tablet 30 mg PO BEDTIME 12/25/19 02/11/21 02/10/21 History pantoprazole 40 mg tablet,delayed 40 mg PO QAM 12/25/19 02/11/21 02/11/21 08:00 History release Ney CantuoStar U-300 Insulin 54 unit SUBCUT QAM 05/27/20 02/11/21 02/11/21 08:00 History albuterol sulfate 2 puff INHALATION QID PRN 05/27/20 02/11/21 Unknown History albuterol sulfate 2.5 mg INHALATION QID PRN 05/27/20 02/11/21 Unknown History budesonide-formoterol [Symbicort] 2 puff INHALATION BID 05/27/20 02/11/21 Unknown History insulin lispro [Humalog KwikPen See Rx Instructions .ROUTE .COMPLEX 05/27/20 02/11/21 02/11/21 08:00 History Insulin] 10 UNITS lisinopril 20 mg tablet 20 mg PO QAM tab 06/18/20 02/11/21 02/11/21 08:00 History tamsulosin 0.4 mg capsule 0.4 mg PO QAM cap 06/18/20 02/11/21 02/11/21 08:00 History spironolactone 100 mg tablet 100 mg PO QAM tab 12/06/20 02/11/21 02/11/21 History bumetanide 2 mg tablet 2 mg PO QAM 01/01/21 02/11/21 02/11/21 History dapagliflozin 5 mg tablet 5 mg PO QAM 01/01/21 02/11/21 02/11/21 History hydrochlorothiazide 25 mg tablet 25 mg PO QAM 01/01/21 02/11/21 02/11/21 History pregabalin 100 mg capsule 100 mg PO BID 30 Days #60 cap 01/23/21 02/11/21 02/11/21 08:00 Rx amlodipine 5 mg PO QAM 02/11/21 02/11/21 02/11/21 08:00 History atorvastatin 40 mg PO QAM 02/11/21 02/11/21 02/11/21 08:00 History cholecalciferol (vitamin D3) 25 mcg PO DAILY 02/11/21 02/11/21 Unknown History [Vitamin D3] cyanocobalamin (vitamin B-12) 2,000 mcg PO DAILY 02/11/21 02/11/21 Unknown History [Vitamin B-12] escitalopram oxalate 20 mg PO QAM 02/11/21 02/11/21 02/11/21 History hydrocodone-acetaminophen 2 tab PO BID PRN 02/11/21 02/11/21 02/11/21 07:30 History 2 TABS semaglutide [Ozempic] 1 mg SUBCUT Q7D 02/11/21 02/11/21 02/09/21 History Allergies Allergy/AdvReac Type Severity Reaction Status Date / Time bupropion [From Wellbutrin] AdvReac mental Verified 02/11/21 14:29 alteration PFSH Acute PFSH: Medical History Acute diastolic heart failure Acute kidney injury Since the patient seems to be remaining stable with no new symptoms, is advised to continue the current medication. Anemia Bursitis, shoulder Chronic back pain Depression Diabetes mellitus Displacement of lumbar disc with radiculopathy Encounter for long-term opiate analgesic use Gastroesophageal reflux disease Hypertension Intervertebral disc disorder with radiculopathy of lumbosacral region Lumbar stenosis with neurogenic claudication Moderate obstructive sleep apnea Morbid obesity with BMI of 45.0-49.9, adult Morbid obesity with BMI of 50.0-59.9, adult Obesity Obstructive sleep apnea Opioid contract exists Osteoarthritis of spine with radiculopathy, lumbar region Other specified anxiety disorders Shortness of breath on exertion The EKG from 11/29/2017 revealed sinus rhythm with a first-degree AV block. According the patient, he had another EKG recently and the results are not available. Spinal stenosis, lumbar region with neurogenic claudication Surgical History History of cervical spinal surgery (~2013) 2017 Dr. Mark Caldera ACDFF History of knee replacement 2009 [place] left total knee replacement 2008 [place] right total knee replacement History of repair of rotator cuff 10/24/2013 Dr. Len Angel: Acromioplasty, distal clavicle resection, and rotator cuff repair with suture anchors, absorbable. Family History Sister Depression Diabetes Father Depression Cancer Grandmother Depression Brother Diabetes Mother Stroke Denies family history of CAD (coronary artery disease) Clotting disorder Dementia Chronic kidney disease (CKD) Suicide Anesthesia complication Bleeding disorder Lung disease Social History Smoking and tobacco status: former smoker Alcohol intake: current Alcohol type: beer Household members: family and other Details: sister Marital status: / Current occupational status: retired and disabled History of recent travel: No Vitals/I&O/Wt Last Vital Signs Temp 98.0 F 02/11/21 12:50 Pulse 64 02/11/21 15:06 Resp 18 02/11/21 15:06 BP 139/64 02/11/21 15:06 Pulse Ox 94 02/11/21 15:06 Weight last 48 hrs Weight 167.829 kg Physical Exam Const: COMMON NORMALS: no acute distress and patient oriented x3 HENMT: COMMON NORMALS: normocephalic Eye: COMMON NORMALS: Equal, round and reactive pupils present and EOMs intact bilaterally GENERAL EYE: appearance normal, both eyes and all related structures PUPIL: Yes Equal, round and reactive pupils present Neck/C-Spine: COMMON NORMALS: full ROM and no JVD THYROID: Thyroid normal Lymph: LYMPHATIC: no lymphadenopathy noted Resp: COMMON NORMALS: normal respiratory effort, No retractions, No use of accessory muscles and clear to auscultation bilaterally AUSCULTATION: clear to auscultation bilaterally Cardio: COMMON NORMALS: regular rate, regular rhythm, S1 normal heart sound present and S2 normal heart sound present RATE: regular rate RHYTHM: regular rhythm HEART SOUNDS: S1 normal heart sound present and S2 normal heart sound present GI: COMMON NORMALS: Normal to inspection, nondistended, normoactive bowel sounds present and Soft to palpation Extremity: COMMON NORMALS: no pedal edema Neuro: COMMON NORMALS: patient oriented x3 and CN's II-XII intact bilaterally Psych: COMMON NORMALS: mental status grossly normal Data : 02/11/21 13:20 02/11/21 13:20 A&P Assessment and plan (1) Acute kidney injury: -Acute kidney injury on chronic kidney disease -creatinine 2.4 -BUN 38 -potassium 6.7 -sodium 138 -no evidence of UTI, no complaints of urinary obstruction, no flank pain -no salicylate use -no dehydration, no heat exhaustion -No falls, no injuries, no clinical evidence of rhabdomyolysis -he is on multiple diuretics and blood pressure medications, no recent changes -etiology likely secondary to blood pressure medications and diuretics -in the emergency room he has received Kayexalate, 10 units of insulin, calcium gluconate -on telemetry there is no acute ST-T wave changes, no peak T waves, no chest pain, no palpitations plan: -Admit to general medical floors -consult nephrology service -repeat BMP is pending -further interventions based on repeat potassium -start gentle IV hydration at 50 cc an hour given diastolic CHF -CPK, salicylate, urine culture pending -urine studies -monitor urine output, bladder scan -renal ultrasound -hold nephrotoxic agents -Toujeo is not available, switch to half dose Lantus 25 units in addition to sliding scale -CPAP for CHANTAL -alcohol abuse, last drink was a week ago, normally drinks 5 drinks a night, has not drank in over 5 days, no evidence of withdrawal -full code -Heparin for DVT prophylaxis Status: Acute (2) Obstructive sleep apnea: Status: Acute (3) Morbid obesity with BMI of 50.0-59.9, adult: Status: Acute (4) Chronic back pain: Status: Acute Qualifiers: Back pain location: low back pain Back pain laterality: bilateral Sciatica presence: without sciatica Qualified Code(s): M54.5 - Low back pain; G89.29 - Other chronic pain (5) Alcohol abuse: Status: Acute (6) Hypertension: Status: Acute Qualifiers: Hypertension type: essential hypertension Qualified Code(s): I10 - Essential (primary) hypertension (7) Depression: Status: Acute Qualifiers: Depression Type: unspecified Qualified Code(s): F32.9 - Major depressive disorder, single episode, unspecified (8) Diabetes mellitus: Status: Acute Qualifiers: Diabetes mellitus type: type 2 Diabetes mellitus long-term insulin use: without roasterman use Diabetes mellitus complication status: with hyperglycemia Qualified Code(s): E11.65 - Type 2 diabetes mellitus with hyperglycemia (9) Hyperkalemia: Status: Acute Attestations Medical Necessity Statement*: Patient requires hospitalization, inpatient, greater than 2 midnights, for KARINA and hyperkalemia Coding Level of Care Code Acute Internal Affairs Investigator for Siobhan Fwd Diagnoses Acute kidney injury N17.9 Obstructive sleep apnea G47.33 Morbid obesity with BMI of 50.0-59.9, adult E66.01; Z68.43 Chronic back pain M54.5; G89.29 Back pain location: low back pain Back pain laterality: bilateral Sciatica presence: without sciatica Alcohol abuse F10.10 Hypertension I10 Hypertension type: essential hypertension Depression F32.9 Depression Type: unspecified Diabetes mellitus E11.65 Diabetes mellitus type: type 2 Diabetes mellitus long-term insulin use: without long-term use Diabetes mellitus complication status: with hyperglycemia Hyperkalemia E87.5
--- NOTE | 2021-02-11 16:36 | USR_ITS ---
PROCEDURE INFORMATION: Exam: US Retroperitoneal; Complete; Kidneys and Bladder Exam date and time: 02/11/2021 4:36 PM Age: 75 years old Clinical indication: Abdominal pain; Flank; Lower; Additional info: Renal failure TECHNIQUE: Imaging protocol: Real-time ultrasound of the retroperitoneum with image documentation. Complete exam focused on the kidneys and bladder. COMPARISON: US abdomen complete* [id number] 10/30/2019 8:12 AM FINDINGS: Right kidney: Normal. No stones. No hydronephrosis. Left kidney: Normal. No stones. No hydronephrosis. Urinary bladder: Unremarkable. US/US renal BI* [id number] IMPRESSION: Unremarkable kidneys and bladder.
--- NOTE | 2021-02-11 16:42 | P.CONIM_ITS ---
Providers/Reason For Consult Consulting Physician/Specialty*: Nephrology Reason for Consult*: Renal Failure Primary Care Provider: Corrina Thakkar History of Present Illness History of Present Illness Thank you for consultation, today had the pleasure reviewing this 74-year-old gentleman for evaluation of hyperkalemia and acute kidney injury. He has a known history of type 2 diabetes, chronic back pain, hypertension, obstructive sleep apnea, renal failure, plan for hemodialysis back in May for recalcitrant hyperkalemia. He was called from his physicians office because of an elevation in serum creatinine and hyperkalemia. On arrival here he was found to have a potassium of 6.7, creatinine 2.4. It is noted that in November his serum creatinine was 1.3 and potassium 5.6 at that time. He is known to have obstructive uropathy, with a postvoid volume of 500 mL is seen during his hospitalization in May. At home he takes combination diuretics as well as lisinopril and spironolactone. He reports compliance with his medications. Hemodynamics robust. He denies any extremity edema, shortness of breath or other hypervolemic symptoms. Diet denies any uremic symptoms. Denies any exposure to anti-inflammatory medications. It is noted that back in April 2020, his echo showed a preserved EF at 65%, grade 1 DD. Review of Systems Narrative: ROS - 12 point review of systems completed per HPI and subjective assessment, this includes Constitutional: No weakness, fatigue Respiratory: No SOB on exertion, comfortable at rest CardioVasc: No chest pain, palpitations Gastrointestinal: No nausea, no vomiting Neurological: No seizures, no AMS Derm: No new rashes, lesions or wounds Immunological: No seasonal and no food allergies Meds/Allergies Home Medications and Allergies Home Medications Medication Instructions Recorded Confirmed Last Taken Type diphenhydramine 25 3 tab PO BEDTIME tab 12/25/19 02/11/21 02/10/21 History mg-acetaminophen 500 mg tablet mirtazapine 30 mg tablet 30 mg PO BEDTIME 12/25/19 02/11/21 02/10/21 History pantoprazole 40 mg tablet,delayed 40 mg PO QAM 12/25/19 02/11/21 02/11/21 08:00 History release T[employer]hil[employer] SoloStar U-300 Insulin 54 unit SUBCUT QAM 05/27/20 02/11/2121 08:00 History albuterol sulfate 2 puff INHALATION QID PRN 05/27/20 02/11/21 Unknown History albuterol sulfate 2.5 mg INHALATION QID PRN 05/27/20 02/11/21 Unknown History budesonide-formoterol [Symbicort] 2 puff INHALATION BID 05/27/20 02/11/21 Unknown History insulin lispro [Humalog KwikPen See Rx Instructions .ROUTE .COMPLEX 05/27/20 02/11/21 02/11/21 08:00 History Insulin] 10 UNITS lisinopril 20 mg tablet 20 mg PO QAM tab 06/18/20 02/11/21 02/11/21 08:00 History tamsulosin 0.4 mg capsule 0.4 mg PO QAM cap 06/18/20 02/11/21 02/11/21 08:00 History spironolactone 100 mg tablet 100 mg PO QAM tab 12/06/20 02/11/21 02/11/21 History bumetanide 2 mg tablet 2 mg PO QAM 01/01/21 02/11/21 02/11/21 History dapagliflozin 5 mg tablet 5 mg PO QAM 01/01/21 02/11/21 02/11/21 History hydrochlorothiazide 25 mg tablet 25 mg PO QAM 01/01/21 02/11/21 02/11/21 History pregabalin 100 mg capsule 100 mg PO BID 30 Days #60 cap 01/23/21 02/11/21 02/11/21 08:00 Rx amlodipine 5 mg PO QAM 02/11/21 02/11/21 02/11/21 08:00 History atorvastatin 40 mg PO QAM 02/11/21 02/11/21 02/11/21 08:00 History cholecalciferol (vitamin D3) 25 mcg PO DAILY 02/11/21 02/11/21 Unknown History [Vitamin D3] cyanocobalamin (vitamin B-12) 2,000 mcg PO DAILY 02/11/21 02/11/21 Unknown History [Vitamin B-12] escitalopram oxalate 20 mg PO QAM 02/11/21 02/11/21 02/11/21 History hydrocodone-acetaminophen 2 tab PO BID PRN 02/11/21 02/11/21 02/11/21 07:30 History 2 TABS semaglutide [Ozempic] 1 mg SUBCUT Q7D 02/11/21 02/11/21 02/09/21 History Allergies Allergy/AdvReac Type Severity Reaction Status Date / Time bupropion [From Wellbutrin] AdvReac mental Verified 02/11/21 14:29 alteration PFSH Acute PFSH: Medical History Acute diastolic heart failure Acute kidney injury Since the patient seems to be remaining stable with no new symptoms, is advised to continue the current medication. Anemia Bursitis, shoulder Chronic back pain Depression Diabetes mellitus Displacement of lumbar disc with radiculopathy Encounter for long-term opiate analgesic use Gastroesophageal reflux disease Hypertension Intervertebral disc disorder with radiculopathy of lumbosacral region Lumbar stenosis with neurogenic claudication Moderate obstructive sleep apnea Morbid obesity with BMI of 45.0-49.9, adult Morbid obesity with BMI of 50.0-59.9, adult Obesity Obstructive sleep apnea Opioid contract exists Osteoarthritis of spine with radiculopathy, lumbar region Other specified anxiety disorders Shortness of breath on exertion The EKG from 11/29/2017 revealed sinus rhythm with a first-degree AV block. According the patient, he had another EKG recently and the results are not available. Spinal stenosis, lumbar region with neurogenic claudication Surgical History History of cervical spinal surgery (~2013) 2016 Dr. Mark Caldera ACD History of knee replacement 2009 St[employer]ker left total knee replacement 2008 Stryker right total knee replacement History of repair of rotator cuff 10/24/2013 Dr. Len Angel: Acromioplasty, distal clavicle resection, and rotator cuff repair with suture anchors, absorbable. Family History Sister Depression Diabetes Father Depression Cancer Grandmother Depression Brother Diabetes Mother Stroke Denies family history of CAD (coronary artery disease) Clotting disorder Dementia Chronic kidney disease (CKD) Suicide Anesthesia complication Bleeding disorder Lung disease Social History Smoking and tobacco status: former smoker Alcohol intake: current Alcohol type: beer Household members: family and other Details: sister Marital status: / Current occupational status: retired and disabled History of recent travel: No Vitals/I&O/Wt Last Vital Signs Temp 98.0 F 02/11/21 12:50 Pulse 61 02/11/21 16:02 Resp 18 02/11/21 16:02 BP 149/84 02/11/21 16:02 Pulse Ox 95 02/11/21 16:02 02/11/21 02/11/21 02/11/21 06:59 14:59 22:59 Intake Total 70 / 70 Balance 70 / 70 Weight last 48 hrs Weight 167.829 kg Physical Exam Narrative: EXAM NARRATIVE: Constitutional: Awake, comfortable HEENT: Wet mucosa, no jvp, non icteric Lungs: Bilaterally clear without discernible wheeze or rales in all lung zones CVS: S1 S2, no murmurs Abdo: Soft, BS ok Ext 4: Minimal edema, peripheral perfusion with no cyanosis Neurological: Grossly non-focal A&P Additional A&P Information 1. Acute kidney injury & hyperkalemia It is likely that the combination of SVITLANA inhibitor and spironolactone, typically this would be offset by the kaliuretic effects of Bumex and hydrochlorothiazide, however, this balance can be tipped in the setting of prerenal azotemia, as the diuretics become less effective and so hyperkalemic physiological forces start to dominate. His medications have course been held now. He is received temporizing therapy. He needs close monitoring here in the hospital to make sure the potassium is a coming down by themselves. We do need to exclude obstructive uropathy. Low potassium diet We will follow up with serial potassium levels this evening. If this does become recalcitrant to temporizing therapy will consider hemodialysis, however, I have this to be avoided. Avoid usual nephrotoxic agents Strict ins and outs 2.Hypertension Blood pressure currently looks stable. Will follow hemodynamics closely during hospitalization. Exam and interview performed with aid of bedside RN using telemedicine Time spent 20 min inc > 50% of time in face to face counseling Servando Keller MD [facility] [phone] Coding Level of Care Code Acute Java Golden Gate Developer for Siobhan Solorio
[2021-02-11 17:18] LABS: Potassium, Radom Urine 27 mmol/L; Urine Creatinine 28 mg/dL (39-259); Urine Random Chloride 139 mmol/L; Urine Random Sodium 129 mmol/L
[2021-02-11 17:39] LABS: Anion Gap 20.4 (5-19); Blood Urea Nitrogen 36 mg/dL (8-23); Calcium 10.7 mg/dL (8.5-10.5); Carbon Dioxide 29 mmol/L (22-29); Chloride 99 mmol/L (98-107); Creatine Phosphokinase 148 U/L (39-308); Glucose 159 mg/dL (65-115); Magnesium 1.9 mg/dL (1.7-2.3); Osmolality Calculated 308 mOsm/kg (285-295); Phosphorus 4.1 mg/dL (2.5-4.5); Potassium 5.4 mmol/L (3.5-5.1); Sodium 143 mmol/L (136-145)
[2021-02-11 17:43] LABS: Alcohol Level < 10 mg/dL (0-10); Salicylate < 0.3 mg/dL (3-10)
[2021-02-11 18:49] LABS: Urea Nitrogen,Urine Random 142 mg/dL
[2021-02-11 18:51] LABS: Eosinophil Urine No Eosinophils Seen
--- NOTE | 2021-02-11 19:54 | PC.NURSE ---
report to Ya NAM
[2021-02-11 21:05] LABS: Glucose Point of Care 169 mg/dL (70-110)
[2021-02-11 21:40] LABS: Anion Gap 22.8 (5-19); Blood Urea Nitrogen 33 mg/dL (8-23); Calcium 10.2 mg/dL (8.5-10.5); Carbon Dioxide 23 mmol/L (22-29); Chloride 97 mmol/L (98-107); Glucose 183 mg/dL (65-115); Osmolality Calculated 298 mOsm/kg (285-295); Potassium 4.8 mmol/L (3.5-5.1); Sodium 138 mmol/L (136-145)
[2021-02-11] MEDS: mirtazapine 30 mg Tablet PO (22:19)
[2021-02-11] MEDS: pregabalin 100 mg Capsule PO (22:19)
[2021-02-11] MEDS: heparin 5,000 unit/mL INJ 1 mL 5000 UNIT SUBCUT (22:19)
[2021-02-11] MEDS: sodium chloride 0.9% 1,000 ML 50 ML IV (22:20)
[2021-02-12] VITALS (9 sets, daily range): BP systolic 95–133; BP diastolic 60–85; PULSE 61–91; RESP 16–19; TEMP 36.5–37.1; O2SAT 91–96
[2021-02-12] MEDS: pantoprazole DR 40 mg Tablet PO (05:30)
[2021-02-12] MEDS: tamsulosin 0.4 mg Capsule PO (05:30)
[2021-02-12] MEDS: atorvastatin 40 mg Tablet PO (05:30)
[2021-02-12] MEDS: amlodipine 5 mg Tablet PO (05:30)
[2021-02-12] MEDS: insulin glargine 100 units/1 mL 25 UNIT SUBCUT (05:37)
[2021-02-12 05:54] LABS: Basophils # 0.1 10^3/uL (0.0-0.1); Basophils % 0.9 %; Eosinophils # 0.2 10^3/uL (0.0-0.8); Eosinophils % 3.4 %; Hematocrit 45.1 % (42.0-52.0); Hemoglobin 14.1 g/dL (11.7-16.6); Lymphocytes # 2.4 10^3/uL (0.8-4.8); Lymphocytes % 35.1 %; Mean Corpuscular HGB Conc 31.3 g/dL (30.0-36.0); Mean Corpuscular Hemoglobin 32.7 pg (28.0-34.0); Mean Corpuscular Volume 104.6 fL (80-94); Mean Platelet Volume 11.7 fL (7.4-10.4); Monocytes # 0.5 10^3/uL (0.2-0.9); Monocytes % 7.9 %; Neutrophils # 3.58 10^3/uL (1.8-7.7); Neutrophils % 52.3 %; Nucleated Red Blood Cells % 0 %; Platelet Count 225 10^3/cmm (130-400); Red Blood Count 4.31 10^6/uL (4.1-5.3); Red Cell Distribution Width 12.5 % (12.1-15.1); White Blood Count 6.8 10^3/uL (4.0-10.0)
[2021-02-12 06:21] LABS: Glucose Point of Care 198 mg/dL (70-110)
[2021-02-12 06:24] LABS: Albumin Level 4.2 g/dL (3.5-5.2); Alkaline Phosphatase 63 IU/L (40-130); Calcium 10.1 mg/dL (8.5-10.5); Carbon Dioxide 25 mmol/L (22-29); Chloride 99 mmol/L (98-107); Globulin 3.6 g/dL (1.3-4.6); Osmolality Calculated 295 mOsm/kg (285-295); Sodium 137 mmol/L (136-145); Total Protein 7.8 g/dL (6.6-8.7)
[2021-02-12 07:00] LABS: Alanine Aminotransferase 31 U/L (0-41); Anion Gap 18.2 (5-19); Aspartate Amino Transferase 50 U/L (0-40); Blood Urea Nitrogen 34 mg/dL (8-23); Glucose 164 mg/dL (65-115); Potassium 5.2 mmol/L (3.5-5.1); Total Bilirubin 1.5 mg/dL (0.15-1.2)
--- NOTE | 2021-02-12 07:10 | PM.PN ---
Subjective Subjective: Interval history: uses bipap. sob- chronic. no n/v/f/c/lopez/d Medications: Reviewed: Yes Medication Review Details: Current Medications Hydrocodone Bitart/Acetaminophen (Hydrocodone-Acetaminophen 10-325 Mg Tablet) 2 tab PO BID PRN PRN Reason: Pain Albuterol Sulfate (Albuterol 2.5 Mg/0.5 Ml Neb) 2.5 mg INHALATION QID.RESPIRATORY PRN PRN Reason: Shortness Of Breath Albuterol Sulfate (Albuterol 8 Gm Mdi) 2 puff INHALATION QID PRN PRN Reason: Shortness Of Breath Amlodipine Besylate (Amlodipine 5 Mg Tablet) [address] [facility] Last Admin: 02/12/21 05:30 Dose: 5 mg Documented by: Atorvastatin Calcium (Atorvastatin 40 Mg Tablet) [address] [facility] Last Admin: 02/12/21 05:30 Dose: 40 mg Documented by: Cyanocobalamin (Cyanocobalamin 1,000 Mcg Tablet) 2,000 mcg PO DAILY [facility] Dextrose (Dextrose 50% Syringe 50 Ml) 25 ml IVP ONCE PRN; Protocol PRN Reason: hypoglycemia protocol Dextrose (Dextrose 50% Syringe 50 Ml) 50 ml IVP PRN PRN; Protocol PRN Reason: hypoglycemia protocol Glucagon (Glucagon 1 Mg/Ml Inj 1 Ml) 1 mg IM ONCE PRN; Protocol PRN Reason: Adult Acute Hypoglycemia Prot. Heparin Sodium (Beef Lung) (Heparin 5,000 Unit/Ml Inj 1 Ml) 5,000 unit SUBCUT Q12H [facility] Last Admin: 02/11/21 22:19 Dose: 5,000 unit Documented by: Sodium Chloride (Sodium Chloride 0.9%) 1,000 mls @ 50 mls/hr IV .Q20H [facility] Last Admin: 02/11/21 22:20 Dose: 50 mls/hr Documented by: Dextrose (D5w) 500 mls @ 100 mls/hr IV ONCE PRN; Protocol PRN Reason: Adult Acute Hypoglycemia Prot Insulin Aspart (Insulin Aspart 100 Unit/1 Ml) 0 unit SUBCUT TIDWM [facility]; Protocol Last Admin: 02/11/21 22:19 Dose: 2 unit Documented by: Insulin Glargine (Insulin Glargine 100 Units/1 Ml) [address] [facility] Last Admin: 02/12/21 05:37 Dose: 25 unit Documented by: Mirtazapine (Mirtazapine 30 Mg Tablet) 30 mg PO BEDTIME [facility] Last Admin: 02/11/21 22:19 Dose: 30 mg Documented by: Ondansetron HCl (Ondansetron 2 Mg/Ml Sdv 2 Ml) 4 mg IVP Q8H PRN PRN Reason: vomiting, or N/V if npo Pantoprazole Sodium (Pantoprazole Dr 40 Mg Tablet) 40 mg PO QAM [facility] Last Admin: 02/12/21 05:30 Dose: 40 mg Documented by: Pregabalin (Pregabalin 100 Mg Capsule) 100 mg PO BID [facility] Last Admin: 02/11/21 22:19 Dose: 100 mg Documented by: Fluticasone/Salmeterol (Fluticasone-Salmeterol 250-50 Diskus) 1 puff INHALATION BID.RESPIRATORY LEXI Tamsulosin HCl (Tamsulosin 0.4 Mg Capsule) 0.4 mg PO QAM [facility] Last Admin: 02/12/21 05:30 Dose: 0.4 mg Documented by: Vitamin D (Cholecalciferol (Vitamin D3) 1,000 Unit Tablet) 1,000 unit PO DAILY [facility] Vitals/I&O/Wt Last Vital Signs Temp 97.7 F 02/12/21 04:00 Pulse 61 02/12/21 04:00 Resp 16 02/12/21 04:00 BP 117/65 02/12/21 04:00 Pulse Ox 94 02/12/21 04:00 02/11/21 02/12/21 02/12/21 22:59 06:59 14:59 Intake Total 70 / 70 120 / 190 Output Total 1075 / 1075 Balance 70 / 70 -955 / -885 Weight last 48 hrs Weight 167.829 kg Weight 167.829 kg Physical Exam Narrative: EXAM NARRATIVE: obese on bipap, vs noted heent- nc/at, eomi lungs poor air movement b/l heart- reg, +MARGARITO abd -soft, nt, nd, +bs ext- 1+ b/l edema neuro- a,a, o x 3 Data : 02/12/21 05:17 02/12/21 05:17 A&P Additional A&P Information 1. Acute kidney injury & hyperkalemia -renal us- normal. no hydronephrosis. -working dx is medication effect of [place]-i/ aldactone/ bumex and hctz -with type 4 RTA of DM - Low potassium diet -cr stable -DM control -loop diuretic if medicine/ cardiology feels he needs diuresis Avoid usual nephrotoxic agents Strict ins and outs -PLEASE HAVE PODIATRIC AIDE TEACH PT A RENAL/ DM DIET 2.Hypertension Blood pressure currently looks stable. Will follow hemodynamics closely during hospitalization. -may be able to dec norvas Exam and interview performed with aid of bedside RN using telemedicine Time spent 30 min inc > 50% of time in face to face counseling Attestations Medical Necessity Statement*: hyperkalemia, anel Time Spent in Patient Care: 16 - 35 minutes Coding Level of Care Code Acute Transformer Inspector for Siobhan Solorio
[2021-02-12] MEDS: cholecalciferol (vitamin D3) 1,000 unit Tablet 1000 UNIT PO (09:18)
[2021-02-12] MEDS: cyanocobalamin 1,000 mcg Tablet 2000 MCG PO (09:19)
[2021-02-12] MEDS: pregabalin 100 mg Capsule PO ×2 (09:19→18:15)
[2021-02-12] MEDS: heparin 5,000 unit/mL INJ 1 mL 5000 UNIT SUBCUT ×2 (09:19→21:17)
[2021-02-12] MEDS: FUROsemide 20 mg Tablet PO (09:21)
--- NOTE | 2021-02-12 10:55 | PC.CHAP ---
Pastoral Care Encounter/Spiritual Assessment Type of Contact [] Declined process owner visit [] Patient/Family/Request visit [] Outpatient visit [] Follow-up visit [] Physician referral [] Code/Alert [x] Routine visit [] Staff referral [] Actively dying [x] Patient sleeping [] Family support [] [] Out of room [] Palliative care [] [] Receiving care in room [] Pre-surgical visit [] Trauma [] Long length of stay [] ICU visit [] Other: Relational/Emotional Strength [] Patient feels connected with others/family/visitors/staff [] Distress [] Loneliness/isolation [] Abandonment Spirituality of Patient [] Person of Maggie [] Attends Hinduism of their Maggie [] Believes in Prayer [] Reads Bible or Jain materials [] There are Spiritual issues to be addressed Case Advocate Interventions [] Prayer [] Active listening [] Non-anxious presence [] Spiritual/emotional support [] Crisis/trauma care [] Spiritual counseling [] Bereavement support [] Provided bereavement packet [] Provided Bible/devotional materials [] Provided toy/stuffed animal, coloring book to patient or family member [] Provided Communion [] Anointing/[place] [] Salvation [] Completed spiritual assessment [] Other: Impact on Illness or Injury [] Angry [] Fearful [] Anxious [] Often cries [] Exhaustion [] Unable to work [] Unable to attend congregation [] Unable to walk/stand [] Unable to read [] Unable to drive [] Unable to eat/drink [] Unable to sleep [] Unable to be with family [] Patient intubated [] Other: Summary Time spent with patient
[2021-02-12 10:58] LABS: Glucose Point of Care 257 mg/dL (70-110)
--- NOTE | 2021-02-12 12:23 | P.PN_ITS ---
Subjective Subjective: Interval history: Patient was seen this morning, he tells me he is feeling well, no nausea, no vomiting, he tells me he is urinating appropriately, no flank pain, no dysuria, Vitals/I&O/Wt Last Vital Signs Temp 98.3 F 02/12/21 12:00 Pulse 74 02/12/21 12:00 Resp 17 02/12/21 12:00 BP 119/67 02/12/21 12:00 Pulse Ox 94 02/12/21 12:00 02/11/21 02/12/21 02/12/21 22:59 06:59 14:59 Intake Total 70 / 70 120 / 190 740 / 740 Output Total 1075 / 1075 550 / 550 Balance 70 / 70 -955 / -885 190 / 190 Weight last 48 hrs Weight 167.829 kg Weight 167.829 kg Physical Exam Const: COMMON NORMALS: no acute distress and patient oriented x3 Resp: COMMON NORMALS: normal respiratory effort, No retractions, No use of accessory muscles and clear to auscultation bilaterally AUSCULTATION: clear to auscultation bilaterally Cardio: COMMON NORMALS: regular rate, regular rhythm, S1 normal heart sound present and S2 normal heart sound present RATE: regular rate RHYTHM: regular rhythm HEART SOUNDS: S1 normal heart sound present and S2 normal heart sound present GI: COMMON NORMALS: Normal to inspection, nondistended, normoactive bowel sounds present and Soft to palpation PALPATION: Yes Soft to palpation OTHER: Obese abdomen Extremity: COMMON NORMALS: no pedal edema Neuro: COMMON NORMALS: patient oriented x3 Psych: COMMON NORMALS: mental status grossly normal Data : 02/12/21 05:17 02/12/21 05:17 A&P Assessment and plan (1) Acute kidney injury: -Acute kidney injury on chronic kidney disease -creatinine 2.0 -BUN 34 -potassium 5.2 -sodium 137 -no evidence of UTI, no complaints of urinary obstruction, no flank pain -no salicylate use -no dehydration, no heat exhaustion -No falls, no injuries, no clinical evidence of rhabdomyolysis -he is on multiple diuretics and blood pressure medications, no recent changes -etiology likely secondary to blood pressure medications and diuretics -in the emergency room he has received Kayexalate, 10 units of insulin, calcium gluconate -on telemetry there is no acute ST-T wave changes, no peak T waves, no chest pain, no palpitations plan: -Admit to general medical floors -consult nephrology service -Follow creatinine, follow potassium -further interventions based on repeat potassium -IV dehydration on hold given CHF -CPK unremarkable, salicylate unremarkable, urine culture pending -monitor urine output, bladder scan -renal ultrasound no acute findings -hold nephrotoxic agents -Toujeo is not available, switch to half dose Lantus 25 units in addition to sliding scale -CPAP for CHANTAL -alcohol abuse, last drink was a week ago, normally drinks 5 drinks a night, has not drank in over 5 days, no evidence of withdrawal -full code -Heparin for DVT prophylaxis Plan for today, continue to monitor renal function, start Lasix, hopefully can discharge the next 24 hours Status: Acute (2) Obstructive sleep apnea: Status: Acute (3) Morbid obesity with BMI of 50.0-59.9, adult: Status: Acute (4) Chronic back pain: Status: Acute Qualifiers: Back pain location: low back pain Back pain laterality: bilateral Sciatica presence: without sciatica Qualified Code(s): M54.5 - Low back pain; G89.29 - Other chronic pain (5) Alcohol abuse: Status: Acute (6) Hypertension: Status: Acute Qualifiers: Hypertension type: essential hypertension Qualified Code(s): I10 - Essential (primary) hypertension (7) Depression: Status: Acute Qualifiers: Depression Type: unspecified Qualified Code(s): F32.9 - Major depressive disorder, single episode, unspecified (8) Diabetes mellitus: Status: Acute Qualifiers: Diabetes mellitus type: type 2 Diabetes mellitus rat exterminator insulin use: without rat exterminator use Diabetes mellitus complication status: with hyperglycemia Qualified Code(s): E11.65 - Type 2 diabetes mellitus with hyperglycemia (9) Hyperkalemia: Status: Acute Attestations Medical Necessity Statement*: Patient requires hospitalization for KARINA, hyp erkalemia, Coding Level of Care Code Acute Body Bumper for [facility] Diagnoses Acute kidney injury N17.9 Obstructive sleep apnea G47.33 Morbid obesity with BMI of 50.0-59.9, adult E66.01; Z68.43 Chronic back pain M54.5; G89.29 Back pain location: low back pain Back pain laterality: bilateral Sciatica presence: without sciatica Alcohol abuse F10.10 Hypertension I10 Hypertension type: essential hypertension Depression F32.9 Depression Type: unspecified Diabetes mellitus E11.65 Diabetes mellitus type: type 2 Diabetes mellitus residential insulin use: without residential use Diabetes mellitus complication status: with hyperglycemia Hyperkalemia E87.5
[2021-02-12 14:30] LABS: Blood Urea Nitrogen 32 mg/dL (8-23); Calcium 10.1 mg/dL (8.5-10.5); Carbon Dioxide 28 mmol/L (22-29); Chloride 96 mmol/L (98-107); Creatinine Clr Calc Pharmacy 56.6355; Glucose 179 mg/dL (65-115); Osmolality Calculated 293 mOsm/kg (285-295); Sodium 136 mmol/L (136-145)
[2021-02-12 14:31] LABS: Anion Gap 17.4 (5-19); Potassium 5.4 mmol/L (3.5-5.1)
[2021-02-12 16:18] LABS: Osmolality Urine 368 mOsm/kg (50-1200)
[2021-02-12 18:03] LABS: Glucose Point of Care 163 mg/dL (70-110)
[2021-02-12 21:03] LABS: Glucose Point of Care 238 mg/dL (70-110)
[2021-02-12] MEDS: mirtazapine 30 mg Tablet PO (21:17)
[2021-02-12] MEDS: HYDROcodone-acetaminophen 10-325 mg Tablet 2 TAB PO (21:31)
[2021-02-13] VITALS (9 sets, daily range): BP systolic 98–120; BP diastolic 59–89; PULSE 73–125; RESP 13–18; TEMP 36.3–37; O2SAT 90–97
[2021-02-13] MEDS: amlodipine 5 mg Tablet PO (05:22)
[2021-02-13] MEDS: atorvastatin 40 mg Tablet PO (05:22)
[2021-02-13] MEDS: pantoprazole DR 40 mg Tablet PO (05:22)
[2021-02-13] MEDS: tamsulosin 0.4 mg Capsule PO (05:22)
[2021-02-13] MEDS: insulin glargine 100 units/1 mL 25 UNIT SUBCUT (05:23)
[2021-02-13 05:49] LABS: Basophils % 0.7 %; Eosinophils # 0.2 10^3/uL (0.0-0.8); Eosinophils % 3.6 %; Hematocrit 45.1 % (42.0-52.0); Hemoglobin 13.4 g/dL (11.7-16.6); Lymphocytes # 2.1 10^3/uL (0.8-4.8); Lymphocytes % 34.8 %; Mean Corpuscular HGB Conc 29.7 g/dL (30.0-36.0); Mean Corpuscular Hemoglobin 32.6 pg (28.0-34.0); Mean Corpuscular Volume 109.7 fL (80-94); Mean Platelet Volume 11.2 fL (7.4-10.4); Monocytes # 0.5 10^3/uL (0.2-0.9); Monocytes % 8.6 %; Neutrophils # 3.16 10^3/uL (1.8-7.7); Neutrophils % 52.1 %; Nucleated Red Blood Cells % 0 %; Platelet Count 192 10^3/cmm (130-400); Red Blood Count 4.11 10^6/uL (4.1-5.3); Red Cell Distribution Width 12.7 % (12.1-15.1); White Blood Count 6.1 10^3/uL (4.0-10.0)
[2021-02-13 06:06] LABS: Alkaline Phosphatase 58 IU/L (40-130)
[2021-02-13 06:13] LABS: Calcium 9.6 mg/dL (8.5-10.5)
[2021-02-13 06:14] LABS: Parathyroid Hormone 39.3 pg/mL (15-65)
--- NOTE | 2021-02-13 06:17 | PC.NURSE ---
Shift Note Frequent safety and comfort rounds continue. Orders and/or nursing care completed as indicated. Patient monitored for response to intervention and treatments. Patient complained of back pain this shift, nurse treated with PRN hydrocodone. Patient BP soft this shift 90's/60s, PT wore CPAP while asleep. Pt had little urine output for the shift around 400 mls. Urine was dark yellow. Pt educated on pain management options and current medications. Patient resting in bed and denies any needs at this time. Will continue to monitor.
[2021-02-13 06:40] LABS: Alanine Aminotransferase 29 U/L (0-41); Aspartate Amino Transferase 43 U/L (0-40); Blood Urea Nitrogen 37 mg/dL (8-23); Chloride 96 mmol/L (98-107); Glucose 198 mg/dL (65-115); Phosphorus 4.8 mg/dL (2.5-4.5); Sodium 137 mmol/L (136-145); Total Bilirubin 1.5 mg/dL (0.15-1.2)
[2021-02-13 06:41] LABS: Albumin Level 4.3 g/dL (3.5-5.2); Anion Gap 23.8 (5-19); Calcium 9.9 mg/dL (8.5-10.5); Carbon Dioxide 22 mmol/L (22-29); Globulin 2.7 g/dL (1.3-4.6); Magnesium 2.1 mg/dL (1.7-2.3); Osmolality Calculated 298 mOsm/kg (285-295); Potassium 4.8 mmol/L (3.5-5.1)
[2021-02-13 07:07] LABS: Glucose Point of Care 276 mg/dL (70-110)
--- NOTE | 2021-02-13 07:20 | P.PN_ITS ---
Subjective Subjective: Interval history: feels well. no lopez, cp, sob, n/v/f/c/lopez. has feet edema Medications: Reviewed: Yes Medication Review Details: Current Medications Hydrocodone Bitart/Acetaminophen (Hydrocodone-Acetaminophen 10-325 Mg Tablet) 2 tab PO BID PRN PRN Reason: Pain Last Admin: 02/12/21 21:31 Dose: 2 tab Documented by: Albuterol Sulfate (Albuterol 2.5 Mg/0.5 Ml Neb) 2.5 mg INHALATION QID.RESPIRATORY PRN PRN Reason: Shortness Of Breath Albuterol Sulfate (Albuterol 8 Gm Mdi) 2 puff INHALATION QID PRN PRN Reason: Shortness Of Breath Amlodipine Besylate (Amlodipine 5 Mg Tablet) [facility] [place] Last Admin: 02/13/21 05:22 Dose: 5 mg Documented by: Atorvastatin Calcium (Atorvastatin 40 Mg Tablet) 40 mg PO QAM [facility] Last Admin: 02/13/21 05:22 Dose: 40 mg Documented by: Cyanocobalamin (Cyanocobalamin 1,000 Mcg Tablet) 2,000 mcg PO DAILY [facility] Last Admin: 02/12/21 09:19 Dose: 2,000 mcg Documented by: Dextrose (Dextrose 50% Syringe 50 Ml) 25 ml IVP ONCE PRN; Protocol PRN Reason: hypoglycemia protocol Dextrose (Dextrose 50% Syringe 50 Ml) 50 ml IVP PRN PRN; Protocol PRN Reason: hypoglycemia protocol Furosemide (Furosemide 20 Mg Tablet) 20 mg PO DAILY@0800 [facility] Last Admin: 02/12/21 09:21 Dose: 20 mg Documented by: Glucagon (Glucagon 1 Mg/Ml Inj 1 Ml) 1 mg IM ONCE PRN; Protocol PRN Reason: Adult Acute Hypoglycemia Prot. Heparin Sodium (Beef Lung) (Heparin 5,000 Unit/Ml Inj 1 Ml) 5,000 unit SUBCUT Q12H [facility] Last Admin: 02/12/21 21:17 Dose: 5,000 unit Documented by: Dextrose (D5w) 500 mls @ 100 mls/hr IV ONCE PRN; Protocol PRN Reason: Adult Acute Hypoglycemia Prot Insulin Aspart (Insulin Aspart 100 Unit/1 Ml) 0 unit SUBCUT TIDWM [facility]; Protocol Last Admin: 02/12/21 18:14 Dose: 2 unit Documented by: Insulin Glargine (Insulin Glargine 100 Units/1 Ml) 25 unit SUBCUT QAM [facility] Last Admin: 02/13/21 05:23 Dose: 25 unit Documented by: Mirtazapine (Mirtazapine 30 Mg Tablet) 30 mg PO BEDTIME [facility] Last Admin: 02/12/21 21:17 Dose: 30 mg Documented by: Ondansetron HCl (Ondansetron 2 Mg/Ml Sdv 2 Ml) 4 mg IVP Q8H PRN PRN Reason: vomiting, or N/V if npo Pantoprazole Sodium (Pantoprazole Dr 40 Mg Tablet) 40 mg PO QAM [facility] Last Admin: 02/13/21 05:22 Dose: 40 mg Documented by: Pregabalin (Pregabalin 100 Mg Capsule) 100 mg PO BID [facility] Last Admin: 02/12/21 18:15 Dose: 100 mg Documented by: Fluticasone/Salmeterol (Fluticasone-Salmeterol 250-50 Diskus) 1 puff INHALATION BID.RESPIRATORY [facility] Last Admin: 02/12/21 20:00 Dose: 1 puff Documented by: Tamsulosin HCl (Tamsulosin 0.4 Mg Capsule) 0.4 mg PO QAM [facility] Last Admin: 02/13/21 05:22 Dose: 0.4 mg Documented by: Vitamin D (Cholecalciferol (Vitamin D3) 1,000 Unit Tablet) 1,000 unit PO DAILY [facility] Last Admin: 02/12/21 09:18 Dose: 1,000 unit Documented by: Vitals/I&O/Wt Last Vital Signs Temp 98.1 F 02/13/21 04:15 Pulse 125 H 02/13/21 04:15 Resp 13 02/13/21 04:15 BP 106/65 02/13/21 04:15 Pulse Ox 91 02/13/21 04:15 02/12/21 02/13/21 02/13/21 22:59 06:59 14:59 Intake Total 240 / 980 240 / 1220 Output Total 825 / 1375 400 / 1775 Balance -585 / -395 -160 / -555 Weight last 48 hrs Weight 167.829 kg Weight 167.829 kg Physical Exam Narrative: EXAM NARRATIVE: obese, comfortable off of bipap, vs noted heent- nc/at, eomi lungs -improved, fine crackles b/l heart- reg, +MARGARITO abd -soft, nt, nd, +bs ext- 1+ b/l edema of feet neuro- a,a, o x 3 Data : 02/13/21 05:00 02/13/21 05:00 A&P Additional A&P Information 1. Acute kidney injury & hyperkalemia -renal us- normal. no hydronephrosis. -working dx is medication effect of [place]-i/ aldactone/ bumex and hctz -with type 4 RTA of DM - Low potassium diet -cr luan w/ lasix and off ivf. will d/c lasix and monitor -DM control Avoid usual nephrotoxic agents Strict ins and outs -PLEASE HAVE COMPUTATIONAL THEORY SCIENTIST TEACH PT A RENAL/ DM DIET 2.Hypertension Blood pressure well controlled- dec norvasc to 2.5 d 3. DM control Exam and interview performed with aid of bedside RN using telemedicine Time spent 30 min inc > 50% of time in face to face counseling Attestations Medical Necessity Statement*: per medicine, anel Time Spent in Patient Care: 16 - 35 minutes Coding Level of Care Code Acute Dimensional Integration Engineer for Tabithag Osmin
[2021-02-13] MEDS: HYDROcodone-acetaminophen 10-325 mg Tablet 2 TAB PO ×2 (08:57→22:13)
[2021-02-13] MEDS: cyanocobalamin 1,000 mcg Tablet 2000 MCG PO (08:57)
[2021-02-13] MEDS: cholecalciferol (vitamin D3) 1,000 unit Tablet 1000 UNIT PO (08:57)
[2021-02-13] MEDS: heparin 5,000 unit/mL INJ 1 mL 5000 UNIT SUBCUT ×2 (08:58→22:14)
[2021-02-13] MEDS: pregabalin 100 mg Capsule PO ×2 (08:58→17:22)
[2021-02-13] MEDS: FUROsemide 20 mg Tablet PO (08:58)
[2021-02-13 11:15] LABS: Glucose Point of Care 343 mg/dL (70-110)
--- NOTE | 2021-02-13 12:23 | PM.DCS ---
Discharge Providers Date of Admission: 02/11/21 15:09 Date of Discharge: February 13, 2021 Attending Provider at Admission: Mike Xie MD Attending Provider at Discharge: Mike Xie MD Primary Care Provider: Corrina Thakkar-C Diagnoses at Discharge Discharge Diagnosis (1) Acute kidney injury: Status: Acute Permanent problem details: Since the patient seems to be remaining stable with no new symptoms, is advised to continue the current medication. (2) Obstructive sleep apnea: Status: Acute (3) Morbid obesity with BMI of 50.0-59.9, adult: Status: Acute (4) Chronic back pain: Status: Acute Qualifiers: Back pain location: low back pain Back pain laterality: bilateral Sciatica presence: without sciatica Qualified Code(s): M54.5 - Low back pain; G89.29 - Other chronic pain (5) Alcohol abuse: Status: Acute (6) Hypertension: Status: Acute (7) Depression: Status: Acute Qualifiers: Depression Type: unspecified Qualified Code(s): F32.9 - Major depressive disorder, single episode, unspecified (8) Diabetes mellitus: Status: Acute (9) Hyperkalemia: Status: Acute Reason for Visit Reason for Visit: ABNORMAL LABS Hospital Course Hospital Course Enzo Trujillo is a 75 year old male with a past medical history of diastolic CHF, insulin-dependent type 2 diabetes mellitus, degenerative disc disease, CHANTAL on CPAP, morbid obesity, chronic kidney disease, depression, GERD, hypertension, who presents to [facility] from his primary care physician's behest due to evidence of elevated potassium, and renal failure on his routine blood work. Patient was admitted to [facility] for KARINA, hyperkalemia secondary to diuretics and blood pressure medications with type IV RTA of diabetes. Patient was managed as inpatient, all nephrotoxic agents was held, received gentle IV hydration, clinically improved. Creatinine on discharge was 2.1, potassium was 4.8. Patient's diuretics and blood pressure medications have been held until he follows up with his primary care provider early next week, recheck kidney function and if it is within reasonable range resume blood pressure medications. In addition patient's diabetic medications had been held due to his GFR, if his creatinine continues to downward trend, he will follow-up with his primary care provider on Wednesday with decisions to resume these medications. Patient is also advised to avoid nephrotoxic agent such as NSAIDs. Physical Exam Const: COMMON NORMALS: no acute distress and patient oriented x3 Resp: COMMON NORMALS: normal respiratory effort, No retractions, No use of accessory muscles and clear to auscultation bilaterally AUSCULTATION: clear to auscultation bilaterally Cardio: COMMON NORMALS: regular rate, regular rhythm, S1 normal heart sound present and S2 normal heart sound present RATE: regular rate RHYTHM: regular rhythm HEART SOUNDS: S1 normal heart sound present and S2 normal heart sound present GI: COMMON NORMALS: Normal to inspection, nondistended, normoactive bowel sounds present, Soft to palpation and non-tender PALPATION: Yes Soft to palpation Extremity: COMMON NORMALS: no pedal edema Neuro: COMMON NORMALS: patient oriented x3 Discharge Data Data Completed and Pending: Completed Studies During Hospitalization Category Date Time Status XR chest 1[place] [id number] Stat Exams 02/11/21 12:57 Completed US renal BI* [id number] Urgent Ultrasound 02/11/21 16:36 Completed Pending at discharge Category Date Time Status Complete Blood Co unt w/Auto AM LABS Lab 02/14/21 04:00 Ordered Complete Blood Co unt w/Auto AM LABS Lab 02/15/21 04:00 Ordered Comprehensive Met abolic Panel AM LA BS Lab 02/14/21 04:00 Ordered Comprehensive Met abolic Panel AM LA BS Lab 02/15/21 04:00 Ordered Magnesium AM LABS Lab 02/14/21 04:00 Ordered Magnesium AM LABS Lab 02/15/21 04:00 Ordered Phosphorus AM LAB S Lab 02/14/21 04:00 Ordered Phosphorus AM LAB S Lab 02/15/21 04:00 Ordered Urine Culture Sta t Lab 02/11/21 13:50 Results Labs from last 24 hours 02/13/21 02/13/21 02/13/21 11:12 06:35 05:00 WBC RBC Hgb Hct MCV MCH MCHC RDW Plt Count MPV Neut % (Auto) Lymph % (Auto) [place] % (Auto) Eos % (Auto) Baso % (Auto) Neut # (Auto) Lymph # (Auto) [place] # (Auto) Eos # (Auto) Baso # (Auto) Nucleated RBC % (a uto) Nucleated RBCs # Sodium Potassium Chloride Carbon Dioxide Anion Gap BUN Creatinine GFR Calculation Glucose POC Glucose 343 H 276 H Calculated Osmolal ity Calcium Phosphorus Magnesium Total Bilirubin AST ALT Alkaline Phosphata se Total Protein Albumin Globulin PTH Intact 39.3 Calcium (PTH Intac t) 9.6 Urine Osmolality 02/13/21 02/13/21 02/12/21 05:00 05:00 20:56 WBC 6.1 RBC 4.11 Hgb 13.4 Hct 45.1 MCV 109.7 H MCH 32.6 MCHC 29.7 L D RDW 12.7 Plt Count 192 MPV 11.2 H Neut % (Auto) 52.1 Lymph % (Auto) 34.8 [place] % (Auto) 8.6 Eos % (Auto) 3.6 Baso % (Auto) 0.7 Neut # (Auto) 3.16 Lymph # (Auto) 2.1 [place] # (Auto) 0.5 Eos # (Auto) 0.2 Baso # (Auto) 0.0 Nucleated RBC % (a uto) 0 Nucleated RBCs # 0.0 Sodium 137 Potassium 4.8 Chloride 96 L Carbon Dioxide 22 Anion Gap 23.8 H BUN 37 H Creatinine 2.1 H GFR Calculation Not Reportable Glucose 198 H POC Glucose 238 H Calculated Osmolal ity 298 H Calcium 9.9 Phosphorus 4.8 H Magnesium 2.1 Total Bilirubin 1.5 H AST 43 H ALT 29 Alkaline Phosphata se 58 Total Protein 7.0 Albumin 4.3 Globulin 2.7 PTH Intact Calcium (PTH Intac t) Urine Osmolality 02/12/21 02/12/21 02/11/21 17:33 13:34 13:50 WBC RBC Hgb Hct MCV MCH MCHC RDW Plt Count MPV Neut % (Auto) Lymph % (Auto) [place] % (Auto) Eos % (Auto) Baso % (Auto) Neut # (Auto) Lymph # (Auto) [place] # (Auto) Eos # (Auto) Baso # (Auto) Nucleated RBC % (a uto) Nucleated RBCs # Sodium 136 Potassium 5.4 H Chloride 96 L Carbon Dioxide 28 Anion Gap 17.4 BUN 32 H Creatinine 1.8 H GFR Calculation Not Reportable Glucose 179 H POC Glucose 163 H Calculated Osmolal ity 293 Calcium 10.1 Phosphorus Magnesium Total Bilirubin AST ALT Alkaline Phosphata se Total Protein Albumin Globulin PTH Intact Calcium (PTH Intac t) Urine Osmolality 368 Vitals: Last Vital Signs Temp 98.1 F 02/13/21 11:36 Pulse 81 02/13/21 11:36 Resp 16 02/13/21 11:36 BP 111/65 02/13/21 11:36 Pulse Ox 95 02/13/21 11:36 Discharge Plan Discharge Patient Disposition: Home Condition: Stable Prescriptions: Continued mirtazapine 30 mg tablet 30 mg PO BEDTIME RF: 0 pantoprazole 40 mg tablet,delayed release (DR/EC) 40 mg PO QAM RF: 0 diphenhydramine-acetaminophen [Tylenol PM Extra Strength] 25-500 mg tablet 3 tab PO BEDTIME RF: 0 tamsulosin 0.4 mg capsule 0.4 mg PO QAM RF: 0 pregabalin 100 mg capsule 100 mg PO BID 30 Days Qty: 60 RF: 0 albuterol sulfate 2.5 mg /3 mL (0.083 %) Solution For Nebulization 2.5 mg INHALATION QID PRN (Reason: Shortness Of Breath) RF: 0 albuterol sulfate 90 mcg/actuation Hfa Aerosol Inhaler 2 puff INHALATION QID PRN (Reason: Shortness Of Breath) RF: 0 insulin lispro [Humalog KwikPen Insulin] 100 unit/mL insulin pen See Rx Instructions .ROUTE .COMPLEX RF: 0 budesonide-formoterol [Symbicort] 160-4.5 mcg/actuation HFA aerosol inhaler 2 puff INHALATION BID RF: 0 Toujeo SoloStar U-300 Insulin 300 unit/mL (1.5 mL) insulin pen 54 unit SUBCUT QAM RF: 0 atorvastatin 40 mg tablet 40 mg PO QAM RF: 0 Vitamin B-12 1,000 mcg Tablet 2,000 mcg PO DAILY RF: 0 escitalopram oxalate 20 mg tablet 20 mg PO QAM RF: 0 Vitamin D3 25 mcg (1,000 unit) Tablet 25 mcg PO DAILY RF: 0 hydrocodone-acetaminophen 10-325 mg tablet 2 tab PO BID PRN (Reason: Pain) RF: 0 Changed amlodipine 5 mg tablet 2.5 mg PO QAM Qty: 0 RF: 0 Held Farxiga 5 mg tablet 5 mg PO QAM RF: 0 Hold Instructions: Resume on 03/13/21. HOLD UNTIL YOU SEE PRIMARY CARE WITH RECHECK KIDNEY FUNCTION hydrochlorothiazide 25 mg tablet 25 mg PO QAM RF: 0 Hold Instructions: Resume on 03/13/21. HOLD UNTIL YOU SEE PRIMARY CARE WITH RECHECK KIDNEY FUNCTION bumetanide 2 mg tablet 2 mg PO QAM RF: 0 Hold Instructions: HOLD UNTIL YOU SEE PRIMARY CARE WITH RECHECK KIDNEY FUNCTION lisinopril 20 mg tablet 20 mg PO QAM RF: 0 Hold Instructions: Resume on 03/13/21. HOLD UNTIL YOU SEE PRIMARY CARE WITH RECHECK KIDNEY FUNCTION spironolactone 100 mg tablet 100 mg PO QAM RF: 0 Hold Instructions: Resume on 03/13/21. HOLD UNTIL YOU SEE PRIMARY CARE WITH RECHECK KIDNEY FUNCTION Ozempic 1 mg/dose (2 mg/1.5 mL) pen injector 1 mg SUBCUT Q7D RF: 0 Hold Instructions: Resume on 03/13/21. HOLD UNTIL YOU SEE PRIMARY CARE WITH RECHECK KIDNEY FUNCTION Discharge Orders: Discharge Order (Routine); Ordered 02/13/21 Ordered By: Mike Xie Referrals: oCrrina Thakkar FNP-C [Primary Care Provider] - 4-7 days Discharge Diet: Diabetic Discharge Activity: Resume usual activity Patient Instructions: Opioid Safety Activity Restrictions/Additional Instructions: -Hold medications as instructed until you see your primary care provider, primary care provider recheck your kidney function, if it is improved then resume medications as per primary care providers direction -Please avoid all NSAIDs -Follow-up with primary care provider on Wednesday -Monitor blood sugars closely Discharge Attestations Time Spent in Discharge Care*: less than 30 min Quality Metrics Clinical Quality Measures During this hospital stay, did patient experience: None Coding Level of Care Code Acute g [facility] note Diagnoses Acute kidney injury N17.9 Obstructive sleep apnea G47.33 Morbid obesity with BMI of 50.0-59.9, adult E66.01; Z68.43 Chronic back pain M54.5; G89.29 Back pain location: low back pain Back pain laterality: bilateral Sciatica presence: without sciatica Alcohol abuse F10.10 Hypertension I10 Depression F32.9 Depression Type: unspecified Diabetes mellitus E11.9 Hyperkalemia E87.5
--- NOTE | 2021-02-13 15:32 | PC.NURSE ---
i reported low o2 to the nurse 87
--- NOTE | 2021-02-13 15:50 | PC.NUTR ---
Nutrition consult received. Provided education on renal/DM diet. See RD assessment for further details.
[2021-02-13 16:55] LABS: Glucose Point of Care 239 mg/dL (70-110)
[2021-02-13 20:41] LABS: Glucose Point of Care 222 mg/dL (70-110)
[2021-02-13] MEDS: mirtazapine 30 mg Tablet PO (22:14)
[2021-02-14] VITALS: BP 97/56; PULSE 81; RESP 16; TEMP 36.3; O2SAT 94
[2021-02-14 02:02] VITALS: PULSE 72; RESP 16; O2SAT 94
[2021-02-14 04:00] VITALS: BP 130/64; PULSE 72; RESP 15; TEMP 36.1; O2SAT 91
[2021-02-14 05:28] LABS: Basophils # 0.1 10^3/uL (0.0-0.1); Basophils % 1.2 %; Eosinophils # 0.2 10^3/uL (0.0-0.8); Eosinophils % 3.7 %; Hematocrit 40.2 % (42.0-52.0); Hemoglobin 12.6 g/dL (11.7-16.6); Lymphocytes # 1.7 10^3/uL (0.8-4.8); Lymphocytes % 35.2 %; Mean Corpuscular HGB Conc 31.3 g/dL (30.0-36.0); Mean Corpuscular Hemoglobin 32.4 pg (28.0-34.0); Mean Corpuscular Volume 103.3 fL (80-94); Mean Platelet Volume 11.6 fL (7.4-10.4); Monocytes # 0.5 10^3/uL (0.2-0.9); Monocytes % 10.4 %; Neutrophils # 2.41 10^3/uL (1.8-7.7); Neutrophils % 49.1 %; Nucleated Red Blood Cells % 0 %; Platelet Count 180 10^3/cmm (130-400); Red Blood Count 3.89 10^6/uL (4.1-5.3); Red Cell Distribution Width 12.5 % (12.1-15.1); White Blood Count 4.9 10^3/uL (4.0-10.0)
[2021-02-14 05:48] LABS: Alanine Aminotransferase 32 U/L (0-41); Alkaline Phosphatase 55 IU/L (40-130); Aspartate Amino Transferase 53 U/L (0-40); Blood Urea Nitrogen 35 mg/dL (8-23); Calcium 9.5 mg/dL (8.5-10.5); Carbon Dioxide 28 mmol/L (22-29); Chloride 98 mmol/L (98-107); Globulin 3.1 g/dL (1.3-4.6); Glucose 216 mg/dL (65-115); Magnesium 1.9 mg/dL (1.7-2.3); Osmolality Calculated 299 mOsm/kg (285-295); Phosphorus 4.3 mg/dL (2.5-4.5); Sodium 137 mmol/L (136-145); Total Bilirubin 1.3 mg/dL (0.15-1.2); Total Protein 7.1 g/dL (6.6-8.7)
[2021-02-14] MEDS: amlodipine 5 mg Tablet 2.5 MG PO (06:38)
[2021-02-14] MEDS: atorvastatin 40 mg Tablet PO (06:38)
[2021-02-14] MEDS: pantoprazole DR 40 mg Tablet PO (06:38)
[2021-02-14] MEDS: tamsulosin 0.4 mg Capsule PO (06:38)
[2021-02-14 06:45] LABS: Glucose Point of Care 235 mg/dL (70-110)
[2021-02-14 07:59] VITALS: BP 155/70; PULSE 87; RESP 17; TEMP 36.4; O2SAT 95
[2021-02-14] MEDS: insulin glargine 100 units/1 mL 25 UNIT SUBCUT (08:23)
[2021-02-14] MEDS: heparin 5,000 unit/mL INJ 1 mL 5000 UNIT SUBCUT (08:24)
[2021-02-14 08:56] VITALS: BP 155/70; PULSE 87; RESP 17; TEMP 36.4; O2SAT 95
--- NOTE | 2021-02-14 08:56 | PC.NURSE ---
Pt was discharged home and ride was set up through Medicaid, trip #[id number]. Patient's brother in law notified and said he would go to the patient's house unlock the door for the patient to be able to get inside. [facility] called and ride set up to take patient home. Patient belongings gathered and taken to the main entrance to meet the driver license technician.
--- NOTE | 2021-02-14 09:35 | PC.SOCIAL ---
Pg 2 IMM Explained to pt Pg 2 IMM. No questions voiced. Provided pt a copy. Initialed, dated, & timed a copy & placed in chart.
--- NOTE | 2021-02-14 10:02 | PC.NURSE ---
This patient was discharged the evening of 02/13/2021, however his family didn't come and pick him up. After speaking with them this morning, they were under the impression that the patient was going to be going to SNF. The patient states he would rather d/c home at this time, so a ride was arranged with Medicaid and [facility] was called for pickup. The patient's personal belongings were gathered and he was waiting at the entrance when [facility] called back and stated they wouldn't be picking him up. The patient was brought back and sat in the waiting room for the time being. Carly Madrid RN with Case Management called [facility] and arranged a trip with the Medicaid ride #. Patient will be waiting in the waiting room as his room is currently in the process of being cleaned. Will continue to assess patient's condition as needed and await transport.
== END 2021-02-14 08:57 | disposition home or self-care (01) | DRG 683 ==
LOC: ER 14:24 → MEDSURG 19:50
PROVIDERS: Internal Medicine Nephrology; Admitting Provider Family Medicine; Emergency Provider Family Medicine; PCP Nurse Practitioner Family; Visit Provider Family Medicine
DX: N17.9 Acute kidney failure, unspecified (principal); I13.0 Hypertensive heart and chronic kidney disease with heart failure and stage 1 through stage 4 chronic kidney disease, or unspecified chronic kidney disease; I50.32 Chronic diastolic (congestive) heart failure; Z68.43 Body mass index [BMI] 50.0-59.9, adult; N13.8 Other obstructive and reflux uropathy; E11.22 Type 2 diabetes mellitus with diabetic chronic kidney disease; E11.65 Type 2 diabetes mellitus with hyperglycemia; N18.9 Chronic kidney disease, unspecified; D63.1 Anemia in chronic kidney disease; G89.29 Other chronic pain; F32.9 Major depressive disorder, single episode, unspecified; M51.17 Intervertebral disc disorders with radiculopathy, lumbosacral region; G47.33 Obstructive sleep apnea (adult) (pediatric); E66.01 Morbid (severe) obesity due to excess calories; M47.816 Spondylosis without myelopathy or radiculopathy, lumbar region; Z96.653 Presence of artificial knee joint, bilateral; Z87.891 Personal history of nicotine dependence; E87.5 Hyperkalemia; F10.10 Alcohol abuse, uncomplicated; N40.1 Benign prostatic hyperplasia with lower urinary tract symptoms; Z79.4 Long term (current) use of insulin; Z79.51 Long term (current) use of inhaled steroids
CPT/HCPCS: 36415; 36416; 51798; 71045; 76770; 80048; 80053; 80307; 81003; 82310; 82436; 82550; 82570; 82962; 83735; 83935; 83970; 84100; 84133; 84300; 84443; 84540; 85025; 85999; 87086; 93005; 94640; 94660; 96365; 96372; 96375; 99291; J0610; J1644; J1815 ×2; J7030

== ENCOUNTER → 2024-03-02 09:50 | Outpatient (BNVA) | payer MEDICARE, MEDICAID, SELFPAY | PROVIDERS: PCP Nurse Practitioner Family; Visit Provider Podiatrist Foot & Ankle Surgery | DX: L60.3 Nail dystrophy (principal); M20.40 Other hammer toe(s) (acquired), unspecified foot; E11.21 Type 2 diabetes mellitus with diabetic nephropathy; Z79.4 Long term (current) use of insulin | CPT/HCPCS: 11721; 99203 ==

== ENCOUNTER → 2024-05-24 10:13 | Outpatient (BNVA) | payer MEDICARE, MEDICAID, SELFPAY | PROVIDERS: PCP Nurse Practitioner Family; Visit Provider Podiatrist Foot & Ankle Surgery | DX: L60.3 Nail dystrophy (principal); M20.40 Other hammer toe(s) (acquired), unspecified foot; E11.21 Type 2 diabetes mellitus with diabetic nephropathy; Z79.4 Long term (current) use of insulin | CPT/HCPCS: 11721 ==

== ENCOUNTER → 2025-02-05 12:55 | Outpatient (BNVA) | payer MEDICARE, MEDICAID, SELFPAY | PROVIDERS: PCP Nurse Practitioner Family; Visit Provider Podiatrist Foot & Ankle Surgery | DX: E11.21 Type 2 diabetes mellitus with diabetic nephropathy (principal); L60.3 Nail dystrophy; M20.40 Other hammer toe(s) (acquired), unspecified foot; Z79.4 Long term (current) use of insulin | CPT/HCPCS: 11721 ==